=== PATIENT | male | born 1950 | race Caucasian/White ===

== ENCOUNTER → 2017-06-05 10:05 | Outpatient (CLI) | payer MEDICARE, OTHER, SELFPAY ==
--- NOTE | 2017-06-05 10:12 | RAD_ITS ---
STUDY: X-RAY CHEST REASON FOR EXAM: Male, 67 years old. One-month history of right-sided chest pain. TECHNIQUE: PA and lateral views of the chest. COMPARISON: Comparison is made with prior study dated June 18, 2016. FINDINGS: A recording device is seen overlying the lower left hemithorax. Hyperinflation. Scattered calcified granulomas. The lungs are clear. There is no demonstrated pleural abnormality. Normal size heart. Normal mediastinum and alessandra. Normal visualized pulmonary arteries. There is atherosclerotic calcification of the aortic arch with tortuosity. Normal visualized thoracic spine. Normal visualized ribs, clavicles, and shoulders. There is no demonstrated abnormality of the visualized soft tissue structures of the upper abdomen. RAD/Chest PA and Lateral IMPRESSION: Hyperinflation. No acute abnormality is seen. Electronically Signed: Lukas Howard MD at 10:56 EST Tel [phone], Service support ,
== END ==
PROVIDERS: Family Provider Family Medicine; PCP Family Medicine; Visit Provider Family Medicine
DX: R07.89 Other chest pain (principal)
CPT/HCPCS: 71046

== ENCOUNTER 2017-09-01 09:31 | Emergency (ER) | payer MEDICARE, OTHER, SELFPAY ==
[2017-09-01 09:32] VITALS: BP 125/75; PULSE 72; RESP 16; TEMP 36.9; O2SAT 97; BMI 24.3
--- NOTE | 2017-09-01 10:05 | CT_ITS ---
STUDY: CT ABDOMEN AND PELVIS WITH CONTRAST REASON FOR EXAM: Male, 67 years old. Lower abdominal pain. History of prostate cancer and prior diverticulitis. RADIATION DOSAGE (If Supplied By Facility): CTDIvol = ( 15.22 ) mGy, DLP = ( 852.26 ) mGycm TECHNIQUE: Transaxial images were obtained from the dome of the diaphragm to the symphysis pubis with oral contrast. 100 ml of Isovue 300 contrast was administered. Sagittal and coronal images were reconstructed. Individualized dose optimization techniques were used for this CT. COMPARISON: Comparison is made with prior study dated January 21, 2016. FINDINGS: Stable mild increased linear markings at the lung bases suggestive of scarring. Calcified granuloma in the posterior medial segment of the right lower lobe. Coronary artery calcification. Normal liver. Normal gallbladder and extrahepatic biliary system. There are multiple benign calcified granulomata of the spleen. Normal pancreas. Normal bilateral adrenal glands. Normal right kidney. Subcentimeters cyst in the lateral portion of the left kidney. There is a small hiatal hernia. Normal small intestine. There are multiple colonic diverticula consistent with diverticulosis. The appendix is visualized and appears normal. There is diffuse atherosclerotic calcification of the abdominal aorta and its major visceral branches, without a demonstrated aneurysm. Normal inferior vena cava. Normal retroperitoneum. Normal urinary bladder. Status post prostatectomy. Normal abdominal wall. There are degenerative changes of the visualized lumbar spine. CT/Abdomen/Pelvis WITH Contrast IMPRESSION: Sigmoid diverticulosis. Electronically Signed: Lukas Howard MD at 12:10 EDT Tel [phone], Service support ,
[2017-09-01 10:15] LABS: Absolute Lymphocyte Count 1.09 X10^3/ul (0.83-4.51); Absolute Neutrophil Count 5.5 X10^3/uL (2.0-7.7); Basophil# 0.02 X10^3/uL; Basophil% 0.3 % (0-1); Eosinophil# 0.03 X10^3/uL; Eosinophils% 0.4 % (0-5); Hematocrit 41.8 % (40-54); Hemoglobin 14.4 g/dl (13.0-16.5); Lymphocyte # 1.09 X10^3/ul (4.0); Lymphocyte % 15.4 % (19-41); Mean Corp Hgb Conc 34.4 g/gl (32-36); Mean Corpuscular Hgb 30.9 pg (27.0-32.0); Mean Corpuscular Volume 89.7 fL (80-94); Mean Platelet Vol. 9.9 fl (6.2-12.0); Monocyte# 0.45 X10^3/uL; Monocyte% 6.3 % (0-10); Neutrophil # 5.48 X10^3/uL (2.7-7.7); Neutrophil % 77.3 % (47-70); Platelet Count 144 K/mm3 (150-450); RBC Distribution Width CV 13.7 % (11.6-14.6); RBC Distribution Width SD 44.3 fl (35.1-43.9); Red Blood Count 4.66 M/mm3 (4.6-6.2); White Blood Count 7.1 K/mm3 (4.4-11.0)
[2017-09-01 10:22] LABS: POSITIVE COUNT NO; POSITIVE DIFFERENTIAL NO; POSITIVE MORPHOLOGY NO
[2017-09-01 10:34] LABS: Anion Gap 7 (5-15); BUN 14 mg/dL (7-18); BUN/Creat Ratio 12.2 RATIO (10-20); Calcium,Total 8.9 mg/dL (8.5-10.1); Chloride 106 mmol/L (98-107); Creatinine, Serum 1.15 mg/dL (0.70-1.30); EST Glomerular Filtration Rate 67 mL/min (>60); Est Glom Filt Rate - Afr Amer 81 mL/min (>60); Estimated Creatinine Clearance 58.65 ml/min; Glucose 105 mg/dL (74-106); Potassium 4.1 mmol/L (3.5-5.1); Sodium Level 141 mmol/L (136-145)
[2017-09-01] MEDS: Ondansetron 4 MG/2 ML Vial IV (10:42)
[2017-09-01] MEDS: 0.9% Normal Saline 1,000 ML 150 ML IV (10:43)
[2017-09-01 10:51] LABS: Mucous, Urine 0 SEEN /hpf (<or=2+); Squamous Epithelial Cells - UA 0 SEEN /hpf (0-5)
[2017-09-01 10:52] LABS: Color, Urine Yellow (Yellow); Glucose, Dipstick Normal (Normal); Ketone-Dipstick Negative (Negative); Leukocyte Esterase-Dipstick 25 /ul (Negative); Nitrite-Dipstick Negative (Negative); Occult Blood-Urine Negative /ul (Negative); Protein-Dipstick 15 mg/dl (Negative); Urine Clarity Clear (Clear); Urine Urobilinogen 1 mg/dl (Normal)
[2017-09-01 10:54] LABS: Urine Bilirubin Dipstick 1 mg/dL (Negative)
[2017-09-01 11:07] LABS: Bacteria RARE /hpf (None Seen); Red Blood Cells-Urine 0-5 SEEN /hpf (0-5); White Blood Cells 0-5 SEEN /hpf (0-5)
[2017-09-01] MEDS: Morphine 4 MG/ML Syringe IV (11:24)
[2017-09-01 12:00] VITALS: BP 135/78; PULSE 61; RESP 16; O2SAT 93
--- NOTE | 2017-09-01 12:01 | ED.RN ---
family called out and asking for someone to come look at arm. large hematoma noted. no circ compromise noted. able to bend at elbow and wrist with no pain. dr. leon aware and xray ordered. ice pack applied and rt arm elevated
--- NOTE | 2017-09-01 12:42 | ED.DCSUM_ITS ---
- ER Visit Summary Date of Service: 09/01/17 Chief Complaint: Abdominal pain History of Present Illness: The patient is a 67 M 3 day history of left lower quadrant abdominal pain. Patient states he has had diverticulitis in the past and this feels similar. He denies fever or chills. He does feel somewhat constipated. He took a laxative last night with no change. Physical Examination: Vital signs are unremarkable. Head neck examination is normal. Heart is regular rate and rhythm. Lung sounds are clear. Abdomen is soft with mild tenderness in the left lower quadrant. There is no guarding or rebound. Hypoactive bowel sounds are present throughout. Test Results: CBC is significant only for platelet count of 144,000. Chemistry studies are unremarkable. Urinalysis is normal. CT abdomen and pelvis with contrast shows evidence of sigmoid diverticulosis, but no evidence of acute inflammation. Emergency Department Course and Treatment: Patient was given morphine, Zofran, and IV fluids. On repeat evaluation test results are discussed. When I review the CT images he does have quite a bit of stool on the left side. He will be given magnesium citrate to help clean him out. He is to monitor for any fever or worsening symptoms and return for repeat evaluation. Treatment Plan: [] Disposition: Discharge Impression: Abdominal pain This note was generated with [employer] dictation software. It may contain incorrect words, spelling, and punctuation that were not noted in review of the chart prior to signing ED Disposition - Plan for ED Patient: Chief Complaint: Abd Pain Referrals: Vik Terrell MD [Primary Care Provider] -
--- NOTE | 2017-09-01 12:42 | ED.DEP ---
ED Disposition - Plan for ED Patient: Disposition: Home or Assisted Living Chief Complaint: Abd Pain Instructions: ED Abdominal Pain Unkn Cause Male Prescriptions: Magnesium Citrate [Citrate Of Magnesia] 150 ml PO Q6H PRN PRN #300 ml PRN Reason: Constipation Referrals: Vik Terrell MD [Primary Care Provider] - 1 Week
[2017-09-01 13:06] VITALS: BP 120/69; PULSE 62; RESP 18; O2SAT 97
--- NOTE | 2017-09-01 13:07 | ED.RN ---
REVIEWED D/C INSTRUCTIONS, FOLLOW UP CARE, PRESCRIPTION, AND S/S THAT WOULD WARRANT A RETURN TO THE ED WITH PT. PT VERBALIZED AN UNDERSTANDING AND DENIES FURTHER QUESTIONS FOR THIS RN. PT SKIN P/W/D, RESP EVEN AND UNLABORED, PT A&O X 3, NO DISTRESS NOTED. PT AMBULATED OUT OF ED, GAIT STEADY.
== END 2017-09-01 13:10 | disposition home or self-care (01) ==
PROVIDERS: Emergency Provider Emergency Medicine; Family Provider Family Medicine; PCP Family Medicine
DX: R10.32 Left lower quadrant pain (principal); K57.30 Diverticulosis of large intestine without perforation or abscess without bleeding; I25.10 Atherosclerotic heart disease of native coronary artery without angina pectoris; I10 Essential (primary) hypertension; E78.00 Pure hypercholesterolemia, unspecified; Z87.19 Personal history of other diseases of the digestive system; Z85.46 Personal history of malignant neoplasm of prostate; Z79.899 Other long term (current) drug therapy; Z72.0 Tobacco use
CPT/HCPCS: 74177; 80048; 81001; 85025; 96361; 96374; 96375; 99283; Q9967; J2405

== ENCOUNTER → 2017-10-06 14:49 | Outpatient (CLI) | payer MEDICARE, OTHER, SELFPAY ==
--- NOTE | 2017-10-06 14:55 | RAD_ITS ---
STUDY: X-RAY CHEST REASON FOR EXAM: Male, 67 years old. Acute bronchitis. TECHNIQUE: PA and lateral views of the chest. COMPARISON: Comparison is made with prior study of June 05, 2017. FINDINGS: A loop recording device is seen overlying the left cardiac border. Hyperinflation. No focal infiltrate is seen. Scattered calcified granulomas. There is no demonstrated pleural abnormality. Normal size heart. Normal mediastinum and alessandra. Normal visualized pulmonary arteries. There is atherosclerotic calcification of the aortic arch with tortuosity. Normal visualized thoracic spine. Normal visualized ribs, clavicles, and shoulders. There is no demonstrated abnormality of the visualized soft tissue structures of the upper abdomen. RAD/Chest PA and Lateral IMPRESSION: Hyperinflation. No acute abnormality is seen. Electronically Signed: Lukas Howard MD at 15:19 EDT Tel [phone], Service support ,
== END ==
PROVIDERS: Family Provider Family Medicine; PCP Family Medicine; Visit Provider Family Medicine
DX: J20.9 Acute bronchitis, unspecified (principal)
CPT/HCPCS: 71046

== ENCOUNTER → 2018-01-21 10:09 | Outpatient (CLI) | payer MEDICARE, OTHER, SELFPAY ==
--- NOTE | 2018-01-21 10:12 | RAD_ITS ---
STUDY: X-RAY CHEST REASON FOR EXAM: Male, 67 years old. Smoker. TECHNIQUE: Frontal and lateral views of the chest. COMPARISON: 10/06/2017. FINDINGS: The lungs are hyperexpanded. There are coarsened interstitial markings suggestive of mild chronic fibrosis. No gross focal infiltrates. No definite masses. No gross effusions. Normal size heart. 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 Normal mediastinum and alessandra. Normal visualized pulmonary arteries. Normal visualized aortic arch and descending thoracic aorta. Normal visualized thoracic spine. Normal visualized ribs, clavicles, and shoulders. There is no demonstrated abnormality of the visualized soft tissue structures of the upper abdomen. RAD/Chest PA and Lateral IMPRESSION: COPD. No definite acute chest disease. Electronically Signed: Philip Ayala MD at 17:05 EDT , Service support ,
[2018-01-21 11:20] LABS: AST(SGOT) 20 U/L (15-37); Alanine Aminotransfer ALT/SGPT 24 U/L (16-61); Albumin, Serum 3.7 g/dL (3.2-5.0); Alkaline Phosphatase 82 U/L (45-117); Bilirubin, Direct 0.12 mg/dL (0.00-0.30); Cholesterol 133 mg/dL (200); Globulin 3.5 g/dL (2.2-4.2); High Density Lipoprotein 49 mg/dL; Protein, Total 7.2 g/dL (6.4-8.2); Triglycerides 203 mg/dL; Very Low Density Lipoprotein 41 mg/dL (5-40)
[2018-01-21 11:24] LABS: Anion Gap 6 (5-15); BUN 19 mg/dL (7-18); BUN/Creat Ratio 16.2 RATIO (10-20); Calcium,Total 8.8 mg/dL (8.5-10.1); Chloride 105 mmol/L (98-107); Creatinine, Serum 1.17 mg/dL (0.70-1.30); EST Glomerular Filtration Rate 66 mL/min (>60); Est Glom Filt Rate - Afr Amer 79 mL/min (>60); Glucose 89 mg/dL (74-106); PSA,Total- Diagnostic < 0.01 ng/mL (0.0-4.0); Sodium Level 140 mmol/L (136-145)
== END ==
PROVIDERS: Family Provider Family Medicine; PCP Family Medicine; Referring Provider Internal Medicine Cardiovascular Disease; Visit Provider Internal Medicine Cardiovascular Disease
DX: I25.10 Atherosclerotic heart disease of native coronary artery without angina pectoris (principal); I25.84 Coronary atherosclerosis due to calcified coronary lesion; E78.00 Pure hypercholesterolemia, unspecified; I10 Essential (primary) hypertension; Z85.46 Personal history of malignant neoplasm of prostate
CPT/HCPCS: 36415; 71046; 80048; 80061; 80076; 84153

== ENCOUNTER → 2018-02-08 07:38 | Outpatient (CLI) | payer MEDICARE, OTHER, SELFPAY ==
--- NOTE | 2018-02-08 07:40 | ECHOD_ITS ---
Reason For Study: CAd/ASHD Procedure This was a 2D Doppler, Color Flow transthoracic echocardiogram. The study was technically difficult. Exam performed in department. Left Ventricle Normal LV size. Left ventricular systolic function is normal. The estimated ejection fraction is 60 %. Stage 1 diastolic dysfunction. No regional wall motion abnormalities noted. Right Ventricle Normal RV size. Normal systolic function. Atria Normal left atrium. Normal right atrium. Mitral Valve Normal mitral valve. Tricuspid Valve Normal tricuspid valve. Mild tricuspid valve insufficiency. Aortic Valve Normal aortic valve. Trisinus/trileaflet aortic valve. Pulmonic Valve Normal pulmonic valve. Great Vessels Normal aortic root. The pulmonary artery is normal size. Pericardium/Pleural No pericardial effusion. MMode/2D Measurements & Calculations LVIDd: 4.8 cm IVSd: 0.92 cm Ao root diam: 3.1 cm LVIDs: 3.2 cm LVPWd: 0.93 cm RVDd: 4.0 cm FS: 34.4 % LAV(MOD-bp): 57.3 ml LA A4 area: 17.4 cm2 LA dimension(2D): 3.4 cm LAV(MOD-bp) Indexed: 29.7 ml/m2 LAV(MOD-sp2): 58.7 ml LAV(MOD-sp4): 48.1 ml RA A4 area: 17.4 cm2 Time Measurements MV dec time: 0.27 sec Doppler Measurements & Calculations MV E max gwyn: 69.6 cm/sec Lat Peak E' Gwyn: 9.3 cm/sec Med Peak E' Gwyn: 4.6 cm/sec MV A max gwyn: 98.3 cm/sec E/E' lat: 7.5 E/E' med: 15.0 MV E/A: 0.71 Ao V2 max: 132.7 cm/sec LV V1 max: 99.4 cm/sec PA V2 max: 72.4 cm/sec Ao max P.1 mmHg LV V1 max P.0 mmHg TR max gwyn: 219.7 cm/sec TR max P.3 mmHg Interpretation Summary Normal LV size. Left ventricular systolic function is normal. The estimated ejection fraction is 60 %. Stage 1 diastolic dysfunction. The global longitudinal strain = -20.7 % (normal). Ordering Physician: Jaxson Arevalo Referring Physician: Vik Terrell Performed By: Blanca Thomas, MAGI, RVT
== END ==
PROVIDERS: Family Provider Family Medicine; PCP Family Medicine; Referring Provider Nurse Practitioner Family; Visit Provider Nurse Practitioner Family
DX: I25.10 Atherosclerotic heart disease of native coronary artery without angina pectoris (principal); I25.84 Coronary atherosclerosis due to calcified coronary lesion
CPT/HCPCS: 93306

== ENCOUNTER → 2018-02-23 20:00 | Outpatient (CLI) | payer MEDICARE, OTHER, SELFPAY | PROVIDERS: Family Provider Family Medicine; PCP Family Medicine; Visit Provider Nurse Practitioner Acute Care | DX: G47.33 Obstructive sleep apnea (adult) (pediatric) (principal) | CPT/HCPCS: 95811 ==

== ENCOUNTER → 2018-03-10 06:43 | Outpatient (CLI) | payer MEDICARE, OTHER, SELFPAY ==
[2018-03-03 09:16] VITALS: BMI 25.4
--- NOTE | 2018-03-10 12:55 | PFT ---
INTRODUCTION: The patient is a 67-year-old male that presents for pulmonary function testing secondary to a diagnosis of COPD. Respiratory therapy reports good patient effort. Bronchodilators were used during testing. INTERPRETATION: Forced expiration spirometry demonstrates the presence of a mild large airways obstructive ventilatory defect. There was a significant response to aerosolized bronchodilators, based upon change noted in FEV1. Spirograms are of good quality and do not plateau indicating slow emptying of the lungs. Body plethysmography was performed and reveals an elevated RV to 132% of predicted, indicative of underlying air trapping. Diffusing capacity by single breath CO is within normal limits at 96% of predicted. IMPRESSION: These pulmonary function studies demonstrate the presence of a partially reversible mild large airways obstructive ventilatory defect with associated air trapping and preserved diffusing capacity.
== END ==
PROVIDERS: Family Provider Family Medicine; PCP Family Medicine; Referring Provider Nurse Practitioner Family; Visit Provider Nurse Practitioner Family
DX: J44.9 Chronic obstructive pulmonary disease, unspecified (principal); R06.09 Other forms of dyspnea
CPT/HCPCS: 94060; 94726; 94729

== ENCOUNTER → 2018-04-02 08:56 | Outpatient (CLI) | payer MEDICARE, OTHER, SELFPAY ==
[2018-03-03 09:16] VITALS: BMI 25.4
[2018-04-02 10:13] LABS: Absolute Lymphocyte Count 1.61 X10^3/ul (0.83-4.51); Absolute Neutrophil Count 2.7 X10^3/uL (2.0-7.7); Basophil# 0.04 X10^3/uL; Basophil% 0.8 % (0-1); Eosinophil# 0.26 X10^3/uL; Eosinophils% 5.3 % (0-5); Hematocrit 40.8 % (40-54); Hemoglobin 13.7 g/dl (13.0-16.5); Lymphocyte # 1.61 X10^3/ul (4.0); Lymphocyte % 32.7 % (19-41); Mean Corp Hgb Conc 33.6 g/gl (32-36); Mean Corpuscular Hgb 29.9 pg (27.0-32.0); Mean Corpuscular Volume 89.1 fL (80-94); Mean Platelet Vol. 11.2 fl (6.2-12.0); Monocyte# 0.33 X10^3/uL; Monocyte% 6.7 % (0-10); Neutrophil # 2.67 X10^3/uL (2.7-7.7); Neutrophil % 54.3 % (47-70); Platelet Count 138 K/mm3 (150-450); RBC Distribution Width CV 13.3 % (11.6-14.6); RBC Distribution Width SD 43.1 fl (35.1-43.9); Red Blood Count 4.58 M/mm3 (4.6-6.2); White Blood Count 4.9 K/mm3 (4.4-11.0)
[2018-04-02 10:16] LABS: POSITIVE COUNT NO; POSITIVE DIFFERENTIAL NO; POSITIVE MORPHOLOGY NO
[2018-04-02 10:38] LABS: Anion Gap 8 (5-15); BUN 22 mg/dL (7-18); BUN/Creat Ratio 13.8 RATIO (10-20); Calcium,Total 8.8 mg/dL (8.5-10.1); Chloride 108 mmol/L (98-107); Cholesterol 127 mg/dL (200); Creatinine, Serum 1.59 mg/dL (0.70-1.30); EST Glomerular Filtration Rate 46 mL/min (>60); Est Glom Filt Rate - Afr Amer 56 mL/min (>60); Glucose 102 mg/dL (74-106); High Density Lipoprotein 37 mg/dL; Potassium 3.9 mmol/L (3.5-5.1); Sodium Level 141 mmol/L (136-145); Thyroid Stim Hormone (TSH) 3.05 uIU/mL (0.358-3.74); Triglycerides 180 mg/dL; Very Low Density Lipoprotein 36 mg/dL (5-40)
== END ==
PROVIDERS: Family Provider Family Medicine; PCP Family Medicine; Referring Provider Family Medicine; Visit Provider Family Medicine
DX: N18.2 Chronic kidney disease, stage 2 (mild) (principal)
CPT/HCPCS: 80048; 80061; 83036; 84443; 85025

== ENCOUNTER → 2018-08-27 07:13 | Outpatient (CLI) | payer MEDICARE, SELFPAY ==
[2018-08-12 07:46] VITALS: BMI 24.9
--- NOTE | 2018-08-27 07:15 | CT_ITS ---
STUDY: LOW DOSE CT LUNG CANCER SCREENING REASON FOR EXAM: Male, 68 years old. 75 pack-year smoking history. History of prostate cancer. RADIATION DOSAGE (If Supplied By Facility): CTDIvol = ( 3.02 ) mGy, DLP = ( 105.71 ) mGycm TECHNIQUE: No contrast was administered. Low dose technique was utilized (average mAS-38 and kVp 120). 1.25 mm axial source images with a slice interval of 1.25-mm were reconstructed in lung windows. 2.5 mm axial source images with a slice interval of 2.5-mm were reconstructed in lung windows. 5.0 mm axial source images with a slice interval of 5.0-mm were reconstructed in soft tissue windows. Nodule measured using lung windows on PACS and/or independent workstation with automated measurement of minimum and maximum diameter. Nodule measurement reported as average diameter rounded to the nearest whole number. Growth is defined as an increase ins size of greater than 1.5 mm. COMPARISON: Comparison is made with prior examination dated March 27, 2010. NODULES: Stable 2 mm calcified granuloma along the left cardiac border as seen on axial image #153. There is a 7.3 mm slightly ill-defined nodule in the posterior lingular segment of the left upper lobe as seen on axial image #198. This was seen on prior study and most likely represents an area of scarring. Emphysema: Hyperinflation. Increased markings at the lung bases more prominent at the right lung base suggestive of scarring. Aorta: Atherosclerotic calcification of the aortic arch. Coronary arteries: Coronary artery calcification. Mediastinal nodes: Stable 1.1 cm lymph node in the prevascular space. Other chest and abdominal findings: CT/Low Dose CT Lung Screening IMPRESSION: Lung-RADS category 2 - Continue annual screening with LDCT in 12 months. IMPORTANT NOTES FOR USE: ACR Lung-RADS Version 1.0 Assessment Categories Release Date: August 01, 2013 Category: Coded 0-4 bases on nodule(s) with highest degree of suspicion. Negative screen is defined as categories 1 and 2; a positive screen is defined as categories 3 and 4. Category 3 and 4A nodules that are unchanged on interval CT should be coded as category 2, and individuals returned to screening in 12 months. Category 4X: Category 3 or 4 nodules with additional imaging findings that increase the suspicion of lung cancer, such as spiculation, GGN that doubles in size in 1 year, enlarged lymph notes, etc. Category Modifiers: S (significant finding unrelated to lung cancer) and C (prior history of treated lung cancer) may be added to the 0-4 Lung-RADS Electronically Signed: Lukas Howard, at 8:39 EDT , Service support ,
== END ==
PROVIDERS: Family Provider Family Medicine; PCP Family Medicine; Referring Provider Internal Medicine Critical Care Medicine; Visit Provider Internal Medicine Critical Care Medicine
DX: J44.9 Chronic obstructive pulmonary disease, unspecified (principal); Z87.891 Personal history of nicotine dependence; Z85.46 Personal history of malignant neoplasm of prostate
CPT/HCPCS: G0297

== ENCOUNTER → 2019-04-04 05:56 | Outpatient (CLI) | payer MEDICARE, SELFPAY ==
[2019-03-17 07:34] VITALS: BMI 24.9
--- NOTE | 2019-04-04 10:00 | STRESSREP ---
Stress Test Report Exercise myocardial perfusion stress test. 69-year-old man with a history of mild coronary artery disease and hypertension. Stress protocol: Resting EKG demonstrates sinus bradycardia with a rate of 54 bpm normal intervals are noted resting blood pressures 124/72 mmHg. The patient exercised according to regular Johnson protocol for a total duration of 7 minutes the maximum heart rate attained was 146 bpm which was 97% of maximum predicted heart rate the maximum workload was 8.5 metabolic equivalents. At rest there were no ST or T wave changes noted suggest ischemia at peak exercise upsloping ST changes were noted with no meet the criteria for ischemia. No clinical angina was noted the test was terminated due to attainment of target heart rate. The resting blood pressure was 124/72 with a peak blood pressure of 124/60 mmHg. Myocardial perfusion protocol. 11.8 mCi of technetium 99m sestamibi was injected at rest. The patient exercised according to regular Johnson protocol for a total duration of 7 minutes and at peak exercise 31.2 mCi of technetium 99m sestamibi was injected stress images were obtained stress and rest images were reconstructed and compared in the short axis vertical and horizontal long axis. Gated images were also obtained Perfusion SPECT analysis: Review of the stress images demonstrate normal uptake of tracer noted in all areas of the myocardium. The resting images similar demonstrate normal uptake of tracer noted in all areas of the myocardium no areas of reversibility or no suggest ischemia no previous infarct is noted. Gated SPECT analysis: The gated ejection fraction is noted to be 62%. Conclusion: Normal exercise stress test with no evidence of ischemia noted at a moderate workload. No clinical angina noted. No ischemia noted. In comparison to the previous stress test the exercise capacity has diminished slightly.
== END ==
PROVIDERS: Family Provider Family Medicine; PCP Family Medicine; Referring Provider Nurse Practitioner Family; Visit Provider Nurse Practitioner Family
DX: I25.118 Atherosclerotic heart disease of native coronary artery with other forms of angina pectoris (principal); I10 Essential (primary) hypertension; R07.9 Chest pain, unspecified; E78.5 Hyperlipidemia, unspecified
CPT/HCPCS: 78452; 93017; A9500; A4216

== ENCOUNTER → 2019-04-08 12:14 | Outpatient (CLI) | payer MEDICARE, SELFPAY ==
[2019-03-17 07:34] VITALS: BMI 24.9
[2019-04-08 16:14] LABS: Amphetamine Urine VISTA NEGATIVE (<1000 ng/mL); Barbiturate Urine VISTA NEGATIVE (< 200 ng/mL); Benzodiazepine Urine VISTA POSITIVE (< 200 ng/mL); Cocaine Urine VISTA NEGATIVE (< 300 ng/mL); Ecstacy Urine VISTA POSITIVE (< 500 ng/mL); Methadone Urine VISTA NEGATIVE (< 300 ng/mL); PCP Urine VISTA NEGATIVE (< 25 ng/mL); THC Urine VISTA NEGATIVE (< 50 ng/mL); Vista UDS pH Range 5
== END ==
PROVIDERS: Family Provider Family Medicine; PCP Family Medicine; Referring Provider Family Medicine; Visit Provider Family Medicine
DX: M51.36 Other intervertebral disc degeneration, lumbar region (principal); F41.9 Anxiety disorder, unspecified
CPT/HCPCS: 80307

== ENCOUNTER → 2019-04-29 09:19 | Outpatient (CLI) | payer MEDICARE, SELFPAY ==
[2019-03-17 07:34] VITALS: BMI 24.9
[2019-04-29 10:19] LABS: Absolute Lymphocyte Count 1.92 X10^3/uL (0.83-4.51); Basophil# 0.03 X10^3/uL; Basophil% 0.5 % (0-1); Eosinophil# 0.17 X10^3/uL; Hematocrit 43.2 % (40-54); Hemoglobin 13.9 g/dL (13.0-16.5); Lymphocyte # 1.92 X10^3/ul (4.0); Lymphocyte % 33.4 % (19-41); Mean Corp Hgb Conc 32.2 g/dL (32-36); Mean Corpuscular Hgb 28.9 pg (27.0-32.0); Mean Corpuscular Volume 89.8 fL (80-94); Mean Platelet Vol. 9.8 fl (6.2-12.0); Monocyte% 8.7 % (0-10); NRBC Flagged by Analyzer 0 % (0-5); Neutrophil # 3.03 X10^3/uL (2.7-7.7); Neutrophil % 52.8 % (47-70); Platelet Count 191 K/mm3 (150-450); RBC Distribution Width CV 13.2 % (11.6-14.6); RBC Distribution Width SD 43.4 fl (35.1-43.9); Red Blood Count 4.81 M/mm3 (4.6-6.2); White Blood Count 5.7 K/mm3 (4.4-11.0)
[2019-04-29 10:31] LABS: Protein, Urine (Random) 26.6 mg/dL (<11.9); Protein:Creat Ratio 155 mg/g CRE (0-200)
[2019-04-29 11:00] LABS: Vitamin D,25 Hydroxy 40.5 ng/mL (29.95-100.01)
[2019-04-29 11:01] LABS: PTHIN 83.6 pg/mL (18.4-80.1)
[2019-04-29 11:05] LABS: AST(SGOT) 17 U/L (15-37); Alanine Aminotransfer ALT/SGPT 29 U/L (16-61); Albumin, Serum 3.2 g/dL (3.2-5.0); Alkaline Phosphatase 60 U/L (45-117); Anion Gap 3 (5-15); BUN 28 mg/dL (7-18); CPK Total, Creatine Kinase 56 U/L (39-308); Chloride 106 mmol/L (98-107); Cholesterol 128 mg/dL (200); Creatinine, Serum 1.22 mg/dL (0.70-1.30); EST Glomerular Filtration Rate 62 mL/min (>60); Est Glom Filt Rate - Afr Amer 75 mL/min (>60); Globulin 3.3 g/dL (2.2-4.2); Glucose 97 mg/dL (74-106); High Density Lipoprotein 45 mg/dL; Magnesium 2.2 mg/dL (1.6-2.6); Potassium 4.2 mmol/L (3.5-5.1); Protein, Total 6.5 g/dL (6.4-8.2); Sodium Level 139 mmol/L (136-145); Triglycerides 180 mg/dL; Very Low Density Lipoprotein 36 mg/dL (5-40)
== END ==
PROVIDERS: PCP Family Medicine; Referring Provider Family Medicine; Visit Provider Family Medicine
DX: I12.9 Hypertensive chronic kidney disease with stage 1 through stage 4 chronic kidney disease, or unspecified chronic kidney disease (principal); N18.3 Chronic kidney disease, stage 3 (moderate); E78.00 Pure hypercholesterolemia, unspecified; R25.2 Cramp and spasm
CPT/HCPCS: 80053; 80061; 82306; 82550; 82570; 83735; 83970; 84156; 85025

== ENCOUNTER → 2019-07-15 11:43 | Outpatient (CLI) | payer MEDICARE, SELFPAY ==
[2019-06-29 10:16] VITALS: BMI 24.9
[2019-07-15 15:20] LABS: Anion Gap 7 (5-15); BUN 17 mg/dL (7-18); BUN/Creat Ratio 13.3 RATIO (10-20); Calcium,Total 9.1 mg/dL (8.5-10.1); Chloride 109 mmol/L (98-107); Creatinine, Serum 1.28 mg/dL (0.70-1.30); EST Glomerular Filtration Rate 59 mL/min (>60); Est Glom Filt Rate - Afr Amer 71 mL/min (>60); Glucose 106 mg/dL (74-106); Potassium 3.6 mmol/L (3.5-5.1); Sodium Level 141 mmol/L (136-145)
== END ==
PROVIDERS: PCP Family Medicine; Referring Provider Family Medicine; Visit Provider Family Medicine
DX: I10 Essential (primary) hypertension (principal)
CPT/HCPCS: 36415; 80048

== ENCOUNTER → 2019-08-04 10:44 | Outpatient (CLI) | payer MEDICARE, SELFPAY ==
[2019-06-29 10:16] VITALS: BMI 24.9
--- NOTE | 2019-08-04 10:45 | RAD_ITS ---
STUDY: X-RAY - LEFT HAND REASON FOR EXAM: Male, 69 years old. Fell 5 days ago, pain in the hand now, hasn''t gotten any better TECHNIQUE: 3 view(s) of the hand. COMPARISON: None. FINDINGS: Normal radiocarpal articulation. Normal distal radioulnar joint. Normal visualized carpal bones. There is degenerative changes at the first carpal metacarpal joint. The remainder of the carpal articulations are normal. Normal carpometacarpal articulation of the thumb. Normal second through fifth carpometacarpal joints. Nondisplaced oblique fracture of the midshaft of the fourth metacarpal. There is degenerative arthrosis of the metacarpophalangeal (MCP) joints. Normal interphalangeal joint of the thumb. Normal proximal and distal phalanges of the thumb. Normal metacarpophalangeal joints of the second through fifth fingers. Normal proximal and distal interphalangeal joints of the second through fifth fingers. Normal phalanges of the second through fifth fingers. Soft tissue swelling. RAD/Hand Min 3 Views IMPRESSION: Nondisplaced oblique fracture through the midshaft of the fourth metacarpal with overlying soft tissue swelling. Degenerative changes at the first carpometacarpal joint. Electronically Signed: Lukas Howard, at 11:11 EDT , Service support ,
--- NOTE | 2019-08-04 10:46 | RAD_ITS ---
STUDY: X-RAY - LEFT RADIUS AND ULNA REASON FOR EXAM: Male, 69 years old. Fell 5 days ago, pain TECHNIQUE: 2 view(s) of the forearm. COMPARISON: None. FINDINGS: There is no demonstrated soft tissue swelling. Normal visualized radius. Normal visualized ulna. Degenerative changes at the elbow joint. RAD/Forearm 2 Views IMPRESSION: Degenerative changes of the elbow joint. No fracture is seen. Electronically Signed: Lukas Howard, at 11:09 EDT , Service support ,
--- NOTE | 2019-08-04 10:46 | RAD_ITS ---
STUDY: X-RAY - LEFT WRIST REASON FOR EXAM: Male, 69 years old. Fell 5 days ago, pain TECHNIQUE: 3 view(s) of the wrist were obtained. COMPARISON: None. FINDINGS: Normal visualized distal radius and ulna. Normal radiocarpal articulation. Normal distal radioulnar articulation. Normal carpal bones. There is degenerative arthrosis of the carpal articulations. There is degenerative arthrosis of the carpometacarpal articulation of the thumb. Normal second through fifth carpometacarpal articulations. Normal visualized metacarpal bones. Soft tissue swelling. RAD/Wrist min 3 Views IMPRESSION: Degenerative changes. No acute fracture or dislocation is seen. Soft tissue swelling. Electronically Signed: Lukas Howard, at 11:08 EDT , Service support ,
== END ==
PROVIDERS: PCP Family Medicine; Referring Provider Family Medicine; Visit Provider Family Medicine
DX: M79.642 Pain in left hand (principal)
CPT/HCPCS: 73090; 73110; 73130

== ENCOUNTER → 2019-09-13 07:30 | Outpatient (CLI) | payer MEDICARE, SELFPAY ==
[2019-06-29 10:16] VITALS: BMI 24.9
--- NOTE | 2019-09-13 07:32 | CT_ITS ---
STUDY: LOW DOSE CT LUNG CANCER SCREENING REASON FOR EXAM: Male, 69 years old. CURRENT SMOKER X 51 YRS X 1 PPD, HTN, MB=026, HX-PROSTATE CA-PROSTATECTOMY RADIATION DOSAGE (If Supplied By Facility): CTDIvol = ( 2.55 ) mGy, DLP = ( 90.29 ) mGycm TECHNIQUE: No contrast was administered. Low dose technique was utilized (average mAS-38 and kVp 120). 1.25 mm axial source images with a slice interval of 1.25-mm were reconstructed in lung windows. 2.5 mm axial source images with a slice interval of 2.5-mm were reconstructed in lung windows. 5.0 mm axial source images with a slice interval of 5.0-mm were reconstructed in soft tissue windows. Nodule measured using lung windows on PACS and/or independent workstation with automated measurement of minimum and maximum diameter. Nodule measurement reported as average diameter rounded to the nearest whole number. Growth is defined as an increase ins size of greater than 1.5 mm. COMPARISON: Comparison is made with prior examination dated August 27, 2018. NODULES: Stable 2 mm calcified granuloma in the left lower lobe adjacent to the cardiac border. This is seen on axial image #157. Stable focal slightly ill-defined density in the anterior aspect of the lingular segment of the left upper lobe as seen on axial image #202. This most likely represents a focal area of scarring. Stable mild degree of increased linear markings at the lung bases slightly worse on the right side suggestive of basilar scarring. Hyperinflation. Aorta: Atherosclerotic calcification of the aortic arch. Coronary arteries: Coronary artery calcification. Mediastinal nodes: Stable 1.1 cm lymph node in the prevascular space. Other chest and abdominal findings: Degenerative changes of the thoracic spine. CT/Low Dose CT Lung Screening IMPRESSION: Lung-RADS category 2 - Continue annual screening with LDCT in 12 months. IMPORTANT NOTES FOR USE: ACR Lung-RADS Version 1.0 Assessment Categories Release Date: August 01, 2013 Category: Coded 0-4 bases on nodule(s) with highest degree of suspicion. Negative screen is defined as categories 1 and 2; a positive screen is defined as categories 3 and 4. Category 3 and 4A nodules that are unchanged on interval CT should be coded as category 2, and individuals returned to screening in 12 months. Category 4X: Category 3 or 4 nodules with additional imaging findings that increase the suspicion of lung cancer, such as spiculation, GGN that doubles in size in 1 year, enlarged lymph notes, etc. Category Modifiers: S (significant finding unrelated to lung cancer) and C (prior history of treated lung cancer) may be added to the 0-4 Lung-RADS Electronically Signed: Lukas Howard, at 10:17 EDT , Service support ,
--- NOTE | 2019-09-13 14:00 | PFTCOMP_ITS ---
COMPLETE PULMONARY FUNCTION TEST INTERPRETATION Brief HPI: Patient is a 69 year old male, currently under the care of Sarah Escobar, who presents to [facility] for complete pulmonary function tests secondary to diagnosis of COPD. Respiratory therapist reports good effort and reproducible results. Interpretation: Forced expiration spirometry shows a mild large airways obstructive ventilatory defect with an FEV1 of 92% predicted. There is no significant bronchodilator res ponse by strict ATS criteria. Spirograms are of good quality and plateau slowly, indicating slowly emptying areas of the lungs. The respiratory flow volume loop shows decreased expiratory flow rates at all lung volumes consistent with airway obstruction. Lung volumes by body plethysmography show an elevated total lung capacity at 7.6 L, 126% predicted. All other lung volumes are increased symmetrically. Diffusion capacity by carbon monoxide is normal at 103% predicted. The airway resistance is normal. Compared to previous study completed on 03/10/2018, there has been a significant improvement in FVC and FEV1 by 13% each. Impression: Irreversible mild large airways obstructive ventilatory defect resulting in air trapping and a pattern consistent with chronic bronchitis. There has been some improvement compared to 2018.
== END ==
PROVIDERS: PCP Family Medicine; Referring Provider Nurse Practitioner Acute Care; Visit Provider Nurse Practitioner Acute Care
DX: J44.9 Chronic obstructive pulmonary disease, unspecified (principal); F17.210 Nicotine dependence, cigarettes, uncomplicated
CPT/HCPCS: 94060; 94726; 94729; G0297

== ENCOUNTER → 2019-09-15 08:19 | Outpatient (CLI) | payer MEDICARE, SELFPAY ==
[2019-06-29 10:16] VITALS: BMI 24.9
[2019-09-15 08:43] VITALS: PULSE 54; PULSE 59; PULSE 72; PULSE 75; PULSE 90; PULSE 91; PULSE 93; PULSE 94; O2SAT 92; O2SAT 93; O2SAT 94; O2SAT 95
--- NOTE | 2019-09-15 14:09 | PCM.PSN.6M ---
PSN 6 Minute Walk Test - 6 Minute Walk Test 6 Minute Walk Test: 6 Minute Walk Test PSN:6-Minute Walk Test Start: 09/15/19 08:42 Freq: Status: Active Protocol: RESP.6MINW Document 09/15/19 08:43 ANUSHA (Rec: 09/15/19 08:45 ANUSHA [id number]) 6 Minute Walk Test Date Performed 09/15/19 Time Performed 08:30 Height 5 ft 8 in Weight: 70.307 kg Weight in Pounds 155.[address]: Sarah Escobar Assistive device used: None Pre-test Oxygen Delivery Method Room Air Pulse Ox (%) 94 Pulse Rate (60-100 beats/min) 54 L Dyspnea Alissa Scale (0-10) 0 Exertion Alissa Scale (6-20) 6 1st minute Oxygen Delivery Method Room Air Pulse Ox (%) 94 Pulse Rate (60-100 beats/min) 72 2nd minute Oxygen Delivery Method Room Air Pulse Ox (%) 93 Pulse Rate (60-100 beats/min) 75 3rd minute Oxygen Delivery Method Room Air Pulse Ox (%) 92 Pulse Rate (60-100 beats/min) 91 4th minute Oxygen Delivery Method Room Air Pulse Ox (%) 93 Pulse Rate (60-100 beats/min) 90 5th minute Oxygen Delivery Method Room Air Pulse Ox (%) 93 Pulse Rate (60-100 beats/min) 93 6th minute Oxygen Delivery Method Room Air Pulse Ox (%) 93 Pulse Rate (60-100 beats/min) 94 Dyspnea Alissa Scale (0-10) 1 Exertion Alissa Scale (6-20) 11 Post-test Oxygen Delivery Method Room Air Pulse Ox (%) 95 Pulse Rate (60-100 beats/min) 59 L Full Laps Walked 20 Partial Lap, Number of Tiles Walked 2 Total Distance Walked (ft) 1182 - Interpretation Interpretation: The patient was able to ambulate 1182 feet over the course of 6 minutes on room air with no assistive devices or breaks. Oxygen chicho was noted at 92%. These findings are consistent with a normal walking oximetry. - Recommendations Recommendations: No supplemental oxygen is indicated at this time.
== END ==
PROVIDERS: PCP Family Medicine; Referring Provider Nurse Practitioner Acute Care; Visit Provider Nurse Practitioner Acute Care
DX: J44.9 Chronic obstructive pulmonary disease, unspecified (principal)
CPT/HCPCS: 94618

== ENCOUNTER → 2019-09-28 16:44 | Outpatient (CLI) | payer MEDICARE, SELFPAY ==
[2019-09-28 10:14] VITALS: BMI 24.9
--- NOTE | 2019-09-28 16:46 | RAD_ITS ---
STUDY: X-RAY - ABDOMEN/PELVIS REASON FOR EXAM: Male, 69 years old. Fecal incontinence TECHNIQUE: 3 AP views COMPARISON: None. FINDINGS: Normal visualized lung bases. There is an abundance of fecal material throughout the colon. There is no demonstrated free abdominal air. The visualized liver, spleen and kidneys are grossly normal in size and morphology. Normal soft tissue structures. There are diffuse degenerative changes of the visualized lumbar spine. RAD/Abd Inc Decub and/or Erect IMPRESSION: No acute findings, retained stool noted throughout the colon Electronically Signed: Jim Quiñones MD at 7:50 EDT , Service support ,
== END ==
PROVIDERS: PCP Family Medicine; Referring Provider Family Medicine; Visit Provider Family Medicine
DX: R15.9 Full incontinence of feces (principal)
CPT/HCPCS: 74019

== ENCOUNTER → 2020-01-02 08:22 | Outpatient (CLI) | payer MEDICARE, SELFPAY ==
[2019-11-10 10:35] VITALS: BMI 23.4
[2020-01-02 09:57] LABS: Absolute Lymphocyte Count 1.55 X10^3/uL (0.83-4.51); Absolute Neutrophil Count 3.7 X10^3/uL (2.0-7.7); Basophil# 0.05 X10^3/uL; Basophil% 0.9 % (0-1); Eosinophil# 0.17 X10^3/uL; Hematocrit 41.6 % (40-54); Hemoglobin 13.5 g/dL (13.0-16.5); Lymphocyte # 1.55 X10^3/ul (4.0); Lymphocyte % 26.9 % (19-41); Mean Corp Hgb Conc 32.5 g/dL (32-36); Mean Corpuscular Hgb 30.1 pg (27.0-32.0); Mean Corpuscular Volume 92.7 fL (80-94); Mean Platelet Vol. 10.1 fl (6.2-12.0); Monocyte# 0.31 X10^3/uL; Monocyte% 5.4 % (0-10); NRBC Flagged by Analyzer 0 % (0-5); Neutrophil # 3.65 X10^3/uL (2.7-7.7); Neutrophil % 63.3 % (47-70); Platelet Count 174 K/mm3 (150-450); RBC Distribution Width CV 13.2 % (11.6-14.6); Red Blood Count 4.49 M/mm3 (4.6-6.2); White Blood Count 5.8 K/mm3 (4.4-11.0)
[2020-01-02 10:14] LABS: Vitamin D,25 Hydroxy 59.2 ng/mL
[2020-01-02 10:16] LABS: ALB/GLOB Ratio 1.1 RATIO (0.9-2.4); AST(SGOT) 13 U/L (15-37); Alanine Aminotransfer ALT/SGPT 20 U/L (16-61); Albumin, Serum 3.4 g/dL (3.2-5.0); Alkaline Phosphatase 68 U/L (45-117); Anion Gap 5 (5-15); BUN 18 mg/dL (7-18); BUN/Creat Ratio 14.2 RATIO (10-20); Calcium,Total 8.3 mg/dL (8.5-10.1); Chloride 113 mmol/L (98-107); Cholesterol 185 mg/dL (200); Creatinine, Serum 1.27 mg/dL (0.70-1.30); EST Glomerular Filtration Rate 59 mL/min (>60); Est Glom Filt Rate - Afr Amer 72 mL/min (>60); Globulin 3.2 g/dL (2.2-4.2); Glucose 99 mg/dL (74-106); High Density Lipoprotein 41 mg/dL; PSA,Total - Annual Screen < 0.01 ng/mL (0.00-4.00); Phosphorus 3.6 mg/dL (2.5-4.9); Potassium 3.8 mmol/L (3.5-5.1); Protein, Total 6.6 g/dL (6.4-8.2); Sodium Level 140 mmol/L (136-145); Triglycerides 139 mg/dL; Very Low Density Lipoprotein 28 mg/dL (5-40)
[2020-01-02 10:20] LABS: Protein, Urine (Random) 46.1 mg/dL (<11.9); Protein:Creat Ratio 136 mg/g CRE (0-200)
== END ==
PROVIDERS: PCP Family Medicine; Referring Provider Family Medicine; Visit Provider Family Medicine
DX: N18.3 Chronic kidney disease, stage 3 (moderate) (principal); Z12.5 Encounter for screening for malignant neoplasm of prostate; E78.00 Pure hypercholesterolemia, unspecified; I12.9 Hypertensive chronic kidney disease with stage 1 through stage 4 chronic kidney disease, or unspecified chronic kidney disease
CPT/HCPCS: 36415; 80053; 80061; 82306; 82570; 83970; 84100; 84153; 84156; 85025; G0103

== ENCOUNTER → 2020-01-13 08:17 | Outpatient (CLI) | payer MEDICARE, SELFPAY ==
[2019-11-10 10:35] VITALS: BMI 23.4
--- NOTE | 2020-01-13 08:20 | VDUE_ITS ---
Reason For Study: Arm swelling Right Proximal Right jugular vein is spontaneous, widely patent, phasic, with no intraluminal echogenicity noted. Right subclavian vein is spontaneous, widely patent, phasic, with no intraluminal echogenicity noted. Right Lower Arm Right radial vein is compressible. Right ulnar vein is compressible. Right Arm Right axillary vein is spontaneous, patent, phasic, competent, compressible and demonstrates augmentation. Right brachial vein is compressible. Right cephalic vein is compressible. Right basilic vein is compressible. Patient Safety Prelim to Tristan. Interpretation Summary Deep veins of the right upper extremity are patent and compressible segmentally. There is no evidence of deep vein thrombosis. The superficial veins of the right upper extremity, the basilic and cephalic veins, are patent and compressible. There is no evidence of right upper extremity superficial thrombophlebitis involving the veins imaged. Ordering Physician: Vik Hudson Referring Physician: Vik Hudson Performed By: Daily Eubanks RVT ?
== END ==
PROVIDERS: PCP Family Medicine; Referring Provider Family Medicine; Visit Provider Family Medicine
DX: M79.89 Other specified soft tissue disorders (principal)
CPT/HCPCS: 93971

== ENCOUNTER → 2020-04-03 07:39 | Outpatient (CLI) | payer MEDICARE, SELFPAY ==
[2020-03-26 08:30] VITALS: BMI 24.9
[2020-04-03 07:43] LABS: Mucous, Urine 0 SEEN /hpf (<or=2+); Red Blood Cells-Urine 0 SEEN /hpf (0-5); White Blood Cells 0 SEEN /hpf (0-5)
[2020-04-03 09:58] LABS: Color, Urine Yellow (Yellow); Glucose, Dipstick Normal (Normal); Ketone-Dipstick 5 mg/dl (Negative); Leukocyte Esterase-Dipstick 25 /ul (Negative); Nitrite-Dipstick Negative (Negative); Occult Blood-Urine Negative /ul (Negative); Protein-Dipstick 30 mg/dl (Negative); Urine Bilirubin Dipstick Negative (Negative); Urine Clarity Sl. Cloudy (Clear); Urine Urobilinogen 1 mg/dl (Normal)
[2020-04-03 09:58] LABS: Absolute Lymphocyte Count 1.31 X10^3/uL (0.83-4.51); Absolute Neutrophil Count 3.3 X10^3/uL (2.0-7.7); Basophil# 0.04 X10^3/uL; Basophil% 0.8 % (0-1); Eosinophil# 0.11 X10^3/uL; Eosinophils% 2.2 % (0-5); Hemoglobin 14.1 g/dL (13.0-16.5); Lymphocyte # 1.31 X10^3/ul (4.0); Lymphocyte % 26.1 % (19-41); Mean Corpuscular Hgb 29.5 pg (27.0-32.0); Mean Corpuscular Volume 92.1 fL (80-94); Mean Platelet Vol. 10.5 fl (6.2-12.0); Monocyte# 0.29 X10^3/uL; Monocyte% 5.8 % (0-10); NRBC Flagged by Analyzer 0 % (0-5); Neutrophil # 3.26 X10^3/uL (2.7-7.7); Neutrophil % 64.9 % (47-70); Platelet Count 169 K/mm3 (150-450); RBC Distribution Width CV 14.3 % (11.6-14.6); RBC Distribution Width SD 49.1 fl (35.1-43.9); Red Blood Count 4.78 M/mm3 (4.6-6.2)
[2020-04-03 10:08] LABS: Bacteria RARE /hpf (None Seen); Calcium Oxalate Crystals Ur 2+ /hpf (<or=2+); Squamous Epithelial Cells - UA 0-5 SEEN /hpf (0-5)
[2020-04-03 10:17] LABS: ALB/GLOB Ratio 1.1 RATIO (0.9-2.4); AST(SGOT) 11 U/L (15-37); Alanine Aminotransfer ALT/SGPT 18 U/L (16-61); Albumin, Serum 3.6 g/dL (3.2-5.0); Alkaline Phosphatase 78 U/L (45-117); Anion Gap 6 (5-15); BUN 17 mg/dL (7-18); BUN/Creat Ratio 13.4 RATIO (10-20); Calcium,Total 8.6 mg/dL (8.5-10.1); Chloride 114 mmol/L (98-107); Cholesterol 127 mg/dL (200); Creatinine, Serum 1.27 mg/dL (0.70-1.30); EST Glomerular Filtration Rate 59 mL/min (>60); Est Glom Filt Rate - Afr Amer 72 mL/min (>60); Globulin 3.2 g/dL (2.2-4.2); Glucose 99 mg/dL (74-106); High Density Lipoprotein 50 mg/dL; Potassium 3.6 mmol/L (3.5-5.1); Protein, Total 6.8 g/dL (6.4-8.2); Sodium Level 143 mmol/L (136-145); Triglycerides 85 mg/dL; Very Low Density Lipoprotein 17 mg/dL (5-40)
[2020-04-04 10:56] LABS: T4 Free Direct 0.81 ng/dL (0.76-1.46); Thyroid Stim Hormone (TSH) 1.27 uIU/mL (0.358-3.74)
== END ==
PROVIDERS: PCP Family Medicine; Referring Provider Family Medicine; Visit Provider Family Medicine
DX: R68.89 Other general symptoms and signs (principal); I10 Essential (primary) hypertension; E78.00 Pure hypercholesterolemia, unspecified; F17.200 Nicotine dependence, unspecified, uncomplicated
CPT/HCPCS: 36415; 80053; 80061; 81001; 84439; 84443; 85025

== ENCOUNTER 2020-04-26 11:06 | Emergency (ER) | payer MEDICARE, SELFPAY ==
[2020-03-26 08:30] VITALS: BMI 24.9
[2020-04-26 11:07] VITALS: BP 127/78; PULSE 61; RESP 16; TEMP 36.6; O2SAT 98; BMI 24.5
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
[2020-04-26 15:36] VITALS: BP 124/69; PULSE 68; RESP 14; O2SAT 98
== END 2020-04-26 15:37 | disposition home or self-care (01) ==
PROVIDERS: Emergency Provider Emergency Medicine; PCP Family Medicine
DX: S00.03XA Contusion of scalp, initial encounter (principal); W22.09XA Striking against other stationary object, initial encounter; E78.5 Hyperlipidemia, unspecified; I10 Essential (primary) hypertension; Z79.02 Long term (current) use of antithrombotics/antiplatelets; Z85.46 Personal history of malignant neoplasm of prostate; Z86.73 Personal history of transient ischemic attack (TIA), and cerebral infarction without residual deficits
CPT/HCPCS: 70450; 72125; 99284

== ENCOUNTER 2020-05-10 06:42 | Day surgery (SDC) | payer MEDICARE, SELFPAY ==
[2020-05-01 11:04] VITALS: BMI 24.9
[2020-05-01 12:43] LABS: Hematocrit 40.9 % (40-54); Hemoglobin 13.4 g/dL (13.0-16.5); Mean Corp Hgb Conc 32.8 g/dL (32-36); Mean Corpuscular Hgb 29.8 pg (27.0-32.0); Mean Corpuscular Volume 91.1 fL (80-94); Mean Platelet Vol. 9.9 fl (6.2-12.0); Platelet Count 147 K/mm3 (150-450); RBC Distribution Width SD 46.7 fl (35.1-43.9); Red Blood Count 4.49 M/mm3 (4.6-6.2); White Blood Count 5.8 K/mm3 (4.4-11.0)
[2020-05-01 13:31] LABS: Anion Gap 5 (5-15); BUN 15 mg/dL (7-18); BUN/Creat Ratio 14.9 RATIO (10-20); Calcium,Total 8.8 mg/dL (8.5-10.1); Chloride 108 mmol/L (98-107); Creatinine, Serum 1.01 mg/dL (0.70-1.30); EST Glomerular Filtration Rate 77 mL/min (>60); Est Glom Filt Rate - Afr Amer 93 mL/min (>60); Glucose 88 mg/dL (74-106); Potassium 4.2 mmol/L (3.5-5.1); Sodium Level 139 mmol/L (136-145)
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
[2020-05-09 08:06] VITALS: BMI 24.5
--- NOTE | 2020-05-10 08:19 | CL.IE_ITS ---
Patient: SELENE SAMUEL Study Date: 05/10/2020 Performing: Jaxson Arevalo MD : 1950 Age: 70 Gender: male PROCEDURES PERFORMED [id number] OF LOOP RECORDER INDICATIONS Cryptogenic stroke PROCEDURE DETAILS The patient was brought to the Catheterization Lab in the postabsorptive nonsedated state. Infor med consent was obtained prior to the procedure. Local anesthetic was given subcutaneously to the le ft upper chest area with Lidocaine 2%. Incision was made to the left upper chest. ICM Loop Recorder w as removed. Steri-strips applied to Lt chest area. The patient tolerated the procedure well. Estimated Blood Loss: 10 ml's IMPLANTED / EX-PLANTED DEVICES DEVICE PARAMETERS CONCLUSIONS / RECOMMENDATIONS Device Conclusions: Successful removal of a patient activated loop recorder. Device Recommendations: Follow up with Primary Care Physician PROCEDURE MEDICATIONS Versed 1 mg IV Oxygen: 2 L/min via nasal cannula Antibiotic given in appropriate timeframe. Ancef 2 Gm IV @ 05/10/2020 07:57:17 Signed By Jaxson Arevalo MD On 05/10/2020 08:18:01 Jaxson Arevalo MD
== END 2020-05-10 09:20 | disposition home or self-care (01) ==
LOC: CLSP 06:44
PROVIDERS: PCP Family Medicine; Referring Provider Internal Medicine Cardiovascular Disease; Visit Provider Internal Medicine Cardiovascular Disease
DX: I25.10 Atherosclerotic heart disease of native coronary artery without angina pectoris (principal); I10 Essential (primary) hypertension; J44.9 Chronic obstructive pulmonary disease, unspecified; E78.5 Hyperlipidemia, unspecified; F17.200 Nicotine dependence, unspecified, uncomplicated; G47.33 Obstructive sleep apnea (adult) (pediatric); Z79.02 Long term (current) use of antithrombotics/antiplatelets; Z98.890 Other specified postprocedural states; Z85.46 Personal history of malignant neoplasm of prostate; Z86.73 Personal history of transient ischemic attack (TIA), and cerebral infarction without residual deficits
CPT/HCPCS: 33286; 36415; 80048; 85027; 99152; J7040

== ENCOUNTER → 2020-07-31 07:47 | Outpatient (CLI) | payer MEDICARE, SELFPAY ==
[2020-05-24 09:22] VITALS: BMI 23.8
[2020-07-31 10:13] LABS: Absolute Lymphocyte Count 1.75 X10^3/uL (0.83-4.51); Absolute Neutrophil Count 3.9 X10^3/uL (2.0-7.7); Basophil# 0.06 X10^3/uL; Eosinophils% 1.6 % (0-5); Hematocrit 45.1 % (40-54); Hemoglobin 14.8 g/dL (13.0-16.5); Lymphocyte # 1.75 X10^3/ul (0.83-4.51); Lymphocyte % 28.1 % (19-41); Mean Corp Hgb Conc 32.8 g/dL (32-36); Mean Corpuscular Hgb 30.5 pg (27.0-32.0); Mean Corpuscular Volume 92.8 fL (80-94); Mean Platelet Vol. 10.1 fl (6.2-12.0); Monocyte# 0.38 X10^3/uL; Monocyte% 6.1 % (0-10); NRBC Flagged by Analyzer 0 % (0-5); Neutrophil # 3.92 X10^3/uL (2.7-7.7); Platelet Count 167 K/mm3 (150-450); RBC Distribution Width CV 13.4 % (11.6-14.6); Red Blood Count 4.86 M/mm3 (4.6-6.2); White Blood Count 6.2 K/mm3 (4.4-11.0)
[2020-07-31 10:14] LABS: Color, Urine Yellow (Yellow); Glucose, Dipstick Normal (Normal); Ketone-Dipstick 50 mg/dl (Negative); Leukocyte Esterase-Dipstick 25 /ul (Negative); Nitrite-Dipstick Negative (Negative); Occult Blood-Urine Negative /ul (Negative); Protein-Dipstick 15 mg/dl (Negative); Specific Gravity, Urine 1.025 (1.002-1.030); Urine Bilirubin Dipstick Negative (Negative); Urine Clarity Sl. Cloudy (Clear); Urine Urobilinogen 1 mg/dl (Normal)
[2020-07-31 10:26] LABS: PTHIN 21.4 pg/mL (18.4-80.1)
[2020-07-31 10:29] LABS: Red Blood Cells-Urine 0-5 SEEN /hpf (0-5); Squamous Epithelial Cells - UA 0-5 SEEN /hpf (0-5); White Blood Cells 0-5 SEEN /hpf (0-5)
[2020-07-31 10:30] LABS: Bacteria RARE /hpf (None Seen); Mucous, Urine 1+ /hpf (<or=2+)
[2020-07-31 10:47] LABS: ALB/GLOB Ratio 1.3 RATIO (0.9-2.4); AST(SGOT) 10 U/L (15-37); Alanine Aminotransfer ALT/SGPT 22 U/L (16-61); Albumin, Serum 4.1 g/dL (3.2-5.0); Alkaline Phosphatase 71 U/L (45-117); Anion Gap 7 (5-15); BUN 22 mg/dL (7-18); BUN/Creat Ratio 17.7 RATIO (10-20); Calcium,Total 9.1 mg/dL (8.5-10.1); Chloride 111 mmol/L (98-107); Cholesterol 144 mg/dL (200); Creatinine, Serum 1.24 mg/dL (0.70-1.30); EST Glomerular Filtration Rate 61 mL/min (>60); Est Glom Filt Rate - Afr Amer 74 mL/min (>60); Globulin 3.1 g/dL (2.2-4.2); Glucose 95 mg/dL (74-106); High Density Lipoprotein 53 mg/dL; Phosphorus 3.4 mg/dL (2.5-4.9); Potassium 3.7 mmol/L (3.5-5.1); Protein, Total 7.2 g/dL (6.4-8.2); Sodium Level 140 mmol/L (136-145); Triglycerides 109 mg/dL; Very Low Density Lipoprotein 22 mg/dL (5-40)
[2020-07-31 10:55] LABS: Microalbumin,Random Urine 40.1 mg/L (NO RANGE EST.); Microalbumin:Creatinine Ratio 18.1 mg/g CRE (<30 mg/g CRE)
[2020-07-31 15:00] LABS: Protein, Urine (Random) 20.7 mg/dL (<11.9); Protein:Creat Ratio 93 mg/g CRE (0-200)
== END ==
PROVIDERS: PCP Family Medicine; Referring Provider Family Medicine; Visit Provider Family Medicine
DX: E78.00 Pure hypercholesterolemia, unspecified (principal); N18.30 Chronic kidney disease, stage 3 unspecified; I12.9 Hypertensive chronic kidney disease with stage 1 through stage 4 chronic kidney disease, or unspecified chronic kidney disease
CPT/HCPCS: 36415; 80053; 80061; 81001; 82043; 82570; 83970; 84100; 84156; 85025

== ENCOUNTER → 2020-08-09 16:44 | Outpatient (CLI) | payer MEDICARE, SELFPAY ==
[2020-05-24 09:22] VITALS: BMI 23.8
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
== END ==
PROVIDERS: PCP Family Medicine; Referring Provider Family Medicine; Visit Provider Family Medicine
DX: S13.4XXA Sprain of ligaments of cervical spine, initial encounter (principal); X58.XXXA Exposure to other specified factors, initial encounter; M50.322 Other cervical disc degeneration at C5-C6 level
CPT/HCPCS: 72040

== ENCOUNTER → 2020-08-10 08:54 | Outpatient (CLI) | payer MEDICARE, SELFPAY ==
[2020-05-24 09:22] VITALS: BMI 23.8
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
== END ==
PROVIDERS: PCP Family Medicine; Referring Provider Family Medicine; Visit Provider Family Medicine
DX: S09.90XA Unspecified injury of head, initial encounter (principal)
CPT/HCPCS: 70450

== ENCOUNTER → 2020-08-30 07:42 | Outpatient (CLI) | payer MEDICARE, SELFPAY ==
[2020-05-24 09:22] VITALS: BMI 23.8
[2020-08-30 08:00] VITALS: PULSE 62; PULSE 66; PULSE 76; PULSE 77; PULSE 78; PULSE 81; PULSE 87; O2SAT 95; O2SAT 96; O2SAT 97; O2SAT 99
--- NOTE | 2020-08-30 15:03 | PCM.PSN.6M ---
PSN 6 Minute Walk Test 6 Minute Walk Test 6 Minute Walk Test: 6 Minute Walk Test PSN:6-Minute Walk Test Start: 08/30/20 08:05 Freq: Status: Active Protocol: [id number] Document 08/30/20 08:00 STEFANI (Rec: 08/30/20 08:08 [id number]) 6 Minute Walk Test Date Performed 08/30/20 Time Performed 08:00 Height 5 ft 9 in Weight: 67.132 kg Weight in Pounds 148.[address]: Sarah Escobar CUSTOMER SERVICE AND SALES CONSULTANT FIO2 (% Oxygen) 21 Assistive device used: None Pre-test Oxygen Delivery Method Room Air Pulse Ox (%) 99 Pulse Rate (60-100 beats/min) 62 Dyspnea Alissa Scale (0-10) 0 Exertion Alissa Scale (6-20) 6 1st minute Oxygen Delivery Method Room Air Pulse Ox (%) 96 Pulse Rate (60-100 beats/min) 87 2nd minute Oxygen Delivery Method Room Air Pulse Ox (%) 95 Pulse Rate (60-100 beats/min) 77 3rd minute Oxygen Delivery Method Room Air Pulse Ox (%) 95 Pulse Rate (60-100 beats/min) 78 4th minute Oxygen Delivery Method Room Air Pulse Ox (%) 95 Pulse Rate (60-100 beats/min) 78 5th minute Oxygen Delivery Method Room Air Pulse Ox (%) 96 Pulse Rate (60-100 beats/min) 76 6th minute Oxygen Delivery Method Room Air Pulse Ox (%) 96 Pulse Rate (60-100 beats/min) 81 Post-test Oxygen Delivery Method Room Air Pulse Ox (%) 97 Pulse Rate (60-100 beats/min) 66 Dyspnea Alissa Scale (0-10) 0.5 Exertion Alissa Scale (6-20) 6 Full Laps Walked 18 Partial Lap, Number of Tiles Walked 0 Total Distance Walked (ft) 1062 Interpretation Interpretation: The patient was able to ambulate 1062 feet over the course of 6 minutes on room air with no assistive devices or breaks. There was no significant desaturation or tachycardia during testing. These findings are consistent with a normal walking oximetry. Recommendations Recommendations: No supplemental oxygen is indicated at this time.
== END ==
PROVIDERS: PCP Family Medicine; Referring Provider Nurse Practitioner Acute Care; Visit Provider Nurse Practitioner Acute Care
DX: J44.9 Chronic obstructive pulmonary disease, unspecified (principal)
CPT/HCPCS: 94618

== ENCOUNTER → 2020-09-20 07:51 | Outpatient (CLI) | payer MEDICARE, SELFPAY ==
[2020-05-24 09:22] VITALS: BMI 23.8
--- NOTE | 2020-09-20 07:52 | CT_ITS ---
STUDY: LOW DOSE CT LUNG CANCER SCREENING REASON FOR EXAM: Male, 70 years old. Current smoker and gt;30 pack years RADIATION DOSAGE (If Supplied By Facility): CTDIvol = ( 2.01 ) mGy, DLP = ( 70.72 ) mGycm TECHNIQUE: No contrast was administered. Low dose technique was utilized (average mAS-38 and kVp 120). 1.25 mm axial source images with a slice interval of 1.25-mm were reconstructed in lung windows. 2.5 mm axial source images with a slice interval of 2.5-mm were reconstructed in lung windows. 5.0 mm axial source images with a slice interval of 5.0-mm were reconstructed in soft tissue windows. Nodule measured using lung windows on PACS and/or independent workstation with automated measurement of minimum and maximum diameter. Nodule measurement reported as average diameter rounded to the nearest whole number. Growth is defined as an increase ins size of greater than 1.5 mm. COMPARISON: Comparison is made with prior examination dated 09/13/2019. NODULES: There is a stable 2 mm calcified granuloma in the right upper lobe anteriorly as seen on axial image #144. Emphysema: Mild increased markings at the lung bases suggestive of scarring slightly more prominent on the right side. Hyperinflation. Stable mild linear scarring in the lingular segment of the left upper lobe. Endobronchial lesion: None Aorta: Atherosclerotic calcification of the aortic arch. Coronary arteries: Coronary artery calcification. Heart: Unremarkable Pulmonary artery: Unremarkable Mediastinal nodes: 1.1 cm lymph node in the prevascular space. Other chest and abdominal findings: Degenerative changes of the thoracic spine. CT/Low Dose CT Lung Screening IMPRESSION: Lung-RADS category 2 - Continue annual screening with LDCT in 12 months. IMPORTANT NOTES FOR USE: ACR Lung-RADS Version 1.1 Assessment Categories Release Date: 2018 Category: Coded 0-4 bases on nodule(s) with highest degree of suspicion. Negative screen is defined as categories 1 and 2; a positive screen is defined as categories 3 and 4. Category 3 and 4A nodules that are unchanged on interval CT should be coded as category 2, and individuals returned to screening in 12 months. Category 4X: Category 3 or 4 nodules with additional imaging findings that increase the suspicion of lung cancer, such as spiculation, GGN that doubles in size in 1 year, enlarged lymph notes, etc. Category Modifiers: S (significant finding unrelated to lung cancer) Electronically Signed: Lukas Howard MD at 10:00 EDT , Service support ,
== END ==
PROVIDERS: PCP Family Medicine; Referring Provider Nurse Practitioner Acute Care; Visit Provider Nurse Practitioner Acute Care
DX: Z12.2 Encounter for screening for malignant neoplasm of respiratory organs (principal); F17.210 Nicotine dependence, cigarettes, uncomplicated
CPT/HCPCS: 71271

== ENCOUNTER → 2020-10-02 06:45 | Outpatient (CLI) | payer MEDICARE, SELFPAY ==
[2020-03-26 08:30] VITALS: BMI 24.9
[2020-10-02 05:38] VITALS: BMI 23.8
--- NOTE | 2020-10-03 09:33 | PFT ---
INTRODUCTION: The patient is a 70-year-old male that presents for pulmonary function studies secondary to a diagnosis of COPD. Respiratory therapy reports good patient effort. Bronchodilators were used during testing. INTERPRETATION: Forced expiration spirometry demonstrates the presence of a mild large airways obstructive ventilatory defect. There was no significant response to aerosolized bronchodilators. Spirograms are of good quality but do not plateau indicating slow emptying of the lungs. Body plethysmography was performed and reveals lung volumes to be within normal limits. Diffusing capacity by single breath CO was also within normal limits. When compared to previous pulmonary function studies dated September 2019, there have been decreases in the patient's FVC, FEV1 and diffusing capacity. IMPRESSION: Irreversible mild large airways obstructive ventilatory defect with preserved lung volumes and diffusing capacity. There have been changes in the patient's PFTs since 2019, as noted above.
== END ==
PROVIDERS: PCP Family Medicine; Referring Provider Nurse Practitioner Acute Care; Visit Provider Nurse Practitioner Acute Care
DX: J44.9 Chronic obstructive pulmonary disease, unspecified (principal)
CPT/HCPCS: 94060; 94726; 94729

== ENCOUNTER → 2020-11-07 08:54 | Outpatient (CLI) | payer MEDICARE, SELFPAY ==
[2020-10-11 08:56] VITALS: BMI 21.9
[2020-11-07 09:19] LABS: Mucous, Urine 0 SEEN /hpf (<or=2+); Red Blood Cells-Urine 0 SEEN /hpf (0-5)
[2020-11-07 10:29] LABS: Absolute Lymphocyte Count 1.52 X10^3/uL (0.83-4.51); Absolute Neutrophil Count 3.9 X10^3/uL (2.0-7.7); Basophil# 0.06 X10^3/uL; Eosinophil# 0.22 X10^3/uL; Eosinophils% 3.6 % (0-5); Hematocrit 44.3 % (40-54); Hemoglobin 14.5 g/dL (13.0-16.5); Lymphocyte # 1.52 X10^3/ul (0.83-4.51); Lymphocyte % 24.8 % (19-41); Mean Corp Hgb Conc 32.7 g/dL (32-36); Mean Corpuscular Hgb 30.6 pg (27.0-32.0); Mean Corpuscular Volume 93.5 fL (80-94); Mean Platelet Vol. 9.8 fl (6.2-12.0); Monocyte# 0.39 X10^3/uL; Monocyte% 6.4 % (0-10); NRBC Flagged by Analyzer 0 % (0-5); Neutrophil % 63.7 % (47-70); Platelet Count 194 K/mm3 (150-450); RBC Distribution Width CV 13.2 % (11.6-14.6); RBC Distribution Width SD 45.6 fl (35.1-43.9); Red Blood Count 4.74 M/mm3 (4.6-6.2); White Blood Count 6.1 K/mm3 (4.4-11.0)
[2020-11-07 10:43] LABS: Color, Urine Yellow (Yellow); Glucose, Dipstick Normal (Normal); Ketone-Dipstick Negative (Negative); Leukocyte Esterase-Dipstick 25 /ul (Negative); Nitrite-Dipstick Negative (Negative); Occult Blood-Urine Negative /ul (Negative); Protein-Dipstick 15 mg/dl (Negative); Urine Bilirubin Dipstick Negative (Negative); Urine Clarity Clear (Clear); Urine Urobilinogen Normal (Normal)
[2020-11-07 10:55] LABS: Bacteria RARE /hpf (None Seen); Hyaline Cast 0-5 SEEN /lpf (0-5); Squamous Epithelial Cells - UA 0-5 SEEN /hpf (0-5); White Blood Cells 0-5 SEEN /hpf (0-5)
[2020-11-07 11:03] LABS: Vitamin D,25 Hydroxy 78.1 ng/mL
[2020-11-07 11:04] LABS: ALB/GLOB Ratio 1.1 RATIO (0.9-2.4); AST(SGOT) 20 U/L (15-37); Alanine Aminotransfer ALT/SGPT 32 U/L (16-61); Albumin, Serum 3.7 g/dL (3.2-5.0); Alkaline Phosphatase 72 U/L (45-117); Anion Gap 6 (5-15); BUN 18 mg/dL (7-18); BUN/Creat Ratio 16.2 RATIO (10-20); Calcium,Total 8.6 mg/dL (8.5-10.1); Chloride 110 mmol/L (98-107); Cholesterol 143 mg/dL (200); Creatinine, Serum 1.11 mg/dL (0.70-1.30); EST Glomerular Filtration Rate 69 mL/min (>60); Est Glom Filt Rate - Afr Amer 84 mL/min (>60); Globulin 3.3 g/dL (2.2-4.2); Glucose 97 mg/dL (74-106); High Density Lipoprotein 48 mg/dL; Potassium 4.2 mmol/L (3.5-5.1); Sodium Level 140 mmol/L (136-145); Triglycerides 101 mg/dL; Very Low Density Lipoprotein 20 mg/dL (5-40)
== END ==
PROVIDERS: PCP Family Medicine; Referring Provider Family Medicine; Visit Provider Family Medicine
DX: I12.9 Hypertensive chronic kidney disease with stage 1 through stage 4 chronic kidney disease, or unspecified chronic kidney disease (principal); N18.30 Chronic kidney disease, stage 3 unspecified; F41.9 Anxiety disorder, unspecified; F17.200 Nicotine dependence, unspecified, uncomplicated; E78.00 Pure hypercholesterolemia, unspecified
CPT/HCPCS: 36415; 80053; 80061; 81001; 82306; 85025

== ENCOUNTER → 2021-02-06 09:57 | Outpatient (CLI) | payer MEDICARE, SELFPAY ==
--- NOTE | 2021-02-06 09:59 | CDU_ITS ---
Reason For Study: Hx stroke, nonobstructive CAD, smoker, headache Rt. Velocities/BP Lt. Velocities/BP Prox CCA 82.6/16 cm/sec. Prox CCA 96.1/26.2 cm/sec. Mid CCA 85.2/17.3 cm/sec. Mid CCA 90/23.7 cm/sec. Dist CCA 79.9/22.6 cm/sec. Dist CCA 85.1/23.7 cm/sec. Prox ICA 60.4/16 cm/sec. Prox ICA 91.2/22.5 cm/sec. Mid ICA 78.6/30.4 cm/sec. Mid ICA 85.1/31.1 cm/sec. Dist ICA 77.7/23.7 cm/sec. Dist ICA 86.4/33.4 cm/sec. Rt. ICA/CCA = 0.95. Lt. ICA/CCA = 1.01. Prox ECA 100.8/10.8 cm/sec. Prox ECA 92.4/20 cm/sec. Rt. Vert. 40/11.6 cm/sec. Lt. Vert. 44.3/14.6 cm/sec. Right Extracranial There is heterogeneous, smooth atherosclerotic plaque noted in the right common carotid artery. There is heterogeneous, irregular atherosclerotic plaque noted in the right internal carotid artery. There is heterogeneous, irregular atherosclerotic plaque noted in the right external carotid artery. Antegrade flow is noted in the right vertebral artery. Left Extracranial There is intimal thickening but no significant atherosclerotic plaque noted in the left common carotid artery. There is heterogeneous, irregular atherosclerotic plaque noted in the left internal carotid artery. There is heterogeneous, irregular atherosclerotic plaque noted in the left external carotid artery. Antegrade flow is noted in the left vertebral artery. Procedure Carotid Duplex [id number]. This is a Carotid Duplex examination using B-mode, color flow and specral Doppler. Exam performed in department. VL/Carotid Duplex Ultrasound Interpretation Summary Irregular calcific plaque right common carotid carotid bulb and proximal marketing intern al carotid artery Less than 50% stenosis right internal carotid artery. Tortuous distal right internal carotid artery Less than 50% stenosis right external carotid artery Irregular calcific plaque in the proximal left internal carotid artery with les s than 50% stenosis Less than 50% stenosis left external carotid artery Patent antegrade vertebral arteries bilaterally Ordering Physician: Elis Early Referring Physician: Vik Hudson Performed By: Daily Eubanks RVT
== END ==
PROVIDERS: PCP Family Medicine; Referring Provider Nurse Practitioner Family; Visit Provider Nurse Practitioner Family
DX: I25.10 Atherosclerotic heart disease of native coronary artery without angina pectoris (principal); R51.9 Headache, unspecified; Z91.89 Other specified personal risk factors, not elsewhere classified; Z86.73 Personal history of transient ischemic attack (TIA), and cerebral infarction without residual deficits
CPT/HCPCS: 93880

== ENCOUNTER → 2021-02-19 11:02 | Outpatient (CLI) | payer MEDICARE, SELFPAY ==
--- NOTE | 2021-02-19 11:05 | RAD_ITS ---
STUDY: X-RAY - SKULL REASON FOR EXAM: Male, 70 years old. Facial swelling. TECHNIQUE: 5 view(s) of the skull were obtained. COMPARISON: None. FINDINGS: 3 mm in length radiopaque foreign body projected over the inferior aspect of the left orbital rim. There is no demonstrated soft tissue swelling. Normal osseous calvarium. Normal visualized facial bones. Normal visualized paranasal sinuses. RAD/Skull min 4 Views IMPRESSION: Metallic foreign body as described. No other abnormality. Electronically Signed: Faizan Gonzalez MD at 12:42 EST , Service support ,
== END ==
PROVIDERS: PCP Family Medicine; Referring Provider Family Medicine; Visit Provider Family Medicine
DX: R22.0 Localized swelling, mass and lump, head (principal)
CPT/HCPCS: 70260

== ENCOUNTER → 2021-02-21 14:41 | Outpatient (CLI) | payer MEDICARE, SELFPAY ==
--- NOTE | 2021-02-21 14:42 | RAD_ITS ---
STUDY: X-RAY - CERVICAL SPINE REASON FOR EXAM: Male, 70 years old. neck pain TECHNIQUE: 4 view(s) of the cervical spine were obtained. COMPARISON: August 09, 2020. FINDINGS: Normal anterior atlantoaxial articulation. Normal odontoid process. Normal cervical lordosis. Normal vertebral bodies . Marginal osteophytes C4-C5 along with disc space narrowing and marginal osteophytes C5-C6 stable since the prior study. Normal visualized intervertebral neuroforamina. The soft tissue structures are unremarkable. RAD/Cerv Spine 2 or 3 Views IMPRESSION: Stable degenerative changes of the lower cervical spine. No acute findings. Electronically Signed: Syed Crowe MD at 3:51 EST , Service support ,
[2021-02-21 14:53] LABS: Bacteria 0 SEEN /hpf (None Seen); Mucous, Urine 0 SEEN /hpf (<or=2+); Red Blood Cells-Urine 0 SEEN /hpf (0-5); Squamous Epithelial Cells - UA 0 SEEN /hpf (0-5); White Blood Cells 0 SEEN /hpf (0-5)
[2021-02-21 18:02] LABS: Absolute Neutrophil Count 3.8 X10^3/uL (2.0-7.7); Basophil# 0.04 X10^3/uL; Basophil% 0.6 % (0-1); Eosinophil# 0.21 X10^3/uL; Eosinophils% 3.2 % (0-5); Hematocrit 43.8 % (40-54); Hemoglobin 14.4 g/dL (13.0-16.5); Lymphocyte % 30.5 % (19-41); Mean Corp Hgb Conc 32.9 g/dL (32-36); Mean Corpuscular Hgb 30.3 pg (27.0-32.0); Mean Corpuscular Volume 92.2 fL (80-94); Mean Platelet Vol. 9.7 fl (6.2-12.0); Monocyte# 0.45 X10^3/uL; Monocyte% 6.9 % (0-10); NRBC Flagged by Analyzer 0 % (0-5); Neutrophil # 3.83 X10^3/uL (2.7-7.7); Neutrophil % 58.5 % (47-70); Platelet Count 177 K/mm3 (150-450); RBC Distribution Width CV 13.2 % (11.6-14.6); Red Blood Count 4.75 M/mm3 (4.6-6.2); White Blood Count 6.6 K/mm3 (4.4-11.0)
[2021-02-21 18:16] LABS: Vitamin D,25 Hydroxy 74.6 ng/mL
[2021-02-21 18:25] LABS: ALB/GLOB Ratio 1.1 RATIO (0.9-2.4); AST(SGOT) 16 U/L (15-37); Alanine Aminotransfer ALT/SGPT 24 U/L (16-61); Albumin, Serum 3.8 g/dL (3.2-5.0); Alkaline Phosphatase 59 U/L (45-117); Anion Gap 5 (5-15); BUN 17 mg/dL (7-18); BUN/Creat Ratio 14.8 RATIO (10-20); Calcium,Total 8.7 mg/dL (8.5-10.1); Chloride 110 mmol/L (98-107); Cholesterol 131 mg/dL (200); Creatinine, Serum 1.15 mg/dL (0.70-1.30); EST Glomerular Filtration Rate 66 mL/min (>60); Est Glom Filt Rate - Afr Amer 80 mL/min (>60); Globulin 3.4 g/dL (2.2-4.2); Glucose 90 mg/dL (74-106); High Density Lipoprotein 51 mg/dL; PSA,Total - Annual Screen < 0.01 ng/mL (0.00-4.00); Phosphorus 3.4 mg/dL (2.5-4.9); Protein, Total 7.2 g/dL (6.4-8.2); Sodium Level 139 mmol/L (136-145); Triglycerides 102 mg/dL; Very Low Density Lipoprotein 20 mg/dL (5-40)
[2021-02-21 18:51] LABS: Hemoglobin A1c 4.9 % (3.8-5.6)
[2021-02-21 18:55] LABS: Protein:Creat Ratio 141 mg/g CRE (0-200)
[2021-02-21 19:21] LABS: Color, Urine Yellow (Yellow); Glucose, Dipstick Normal (Normal); Ketone-Dipstick Negative (Negative); Leukocyte Esterase-Dipstick Negative /ul (Negative); Nitrite-Dipstick Negative (Negative); Occult Blood-Urine Negative /ul (Negative); Protein-Dipstick Negative (Negative); Urine Bilirubin Dipstick Negative (Negative); Urine Clarity Clear (Clear); Urine Urobilinogen Normal (Normal); Urine pH 6.5 (5.0 - 8.0)
[2021-02-22 08:04] LABS: PTHIN 27.9 pg/mL (18.4-80.1)
== END ==
PROVIDERS: PCP Family Medicine; Referring Provider Psychiatry & Neurology Neurology; Visit Provider Psychiatry & Neurology Neurology
DX: M54.2 Cervicalgia (principal); N18.30 Chronic kidney disease, stage 3 unspecified; Z12.5 Encounter for screening for malignant neoplasm of prostate; R73.9 Hyperglycemia, unspecified; E78.00 Pure hypercholesterolemia, unspecified
CPT/HCPCS: 36415; 72040; 80053; 80061; 81001; 82306; 82570; 83036; 83970; 84100; 84153; 84156; 85025; G0103

== ENCOUNTER 2021-04-29 08:02 | Emergency (ER) | payer MEDICARE, SELFPAY ==
[2021-04-29 08:04] VITALS: BP 131/76; PULSE 63; RESP 16; TEMP 35.6; O2SAT 97; BMI 22.8
--- NOTE | 2021-04-29 08:37 | EDS_ITS ---
HPI History of Present Illness Chief Complaint: Lower Extremity Injury Informant: patient and spouse/S.O. Narrative Narrative: Patient complains of back and left lower extremity pain. This been going on about a week and a half or so. Patient denies any specific injury or inciting event. But he is quite active. 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 Pain is in the left SI joint area across the left buttock goes down the lateral aspect of the left leg and into the left knee. He has back pain all the time but it does not normally radiate down. He denies any bowel or bladder dysfunction. No fevers or chills. No weakness or numbness. The lower back portion is actually better when he walks but then the knee and lower leg bothers him more. He occasionally takes tramadol for his back. He has not had any today. He has had surgery on the knee for a meniscus and anterior cruciate and has been recommended that he may need a knee replacement soon. He evidently saw an orthopedic surgeon her office here in the past week and had x-rays. They think they were x-rays of the hip. These were evidently normal. He was told that if his symptoms worsen he should come to the emergency department. He is scheduled for repeat visit and MRI either Thursday or Thursday. [facility] Medical History Arthritis Bilateral carpal tunnel syndrome Cardiovascular event risk Chronic headache Chronic headaches COVID-19 virus detected (06/2020) Cryptogenic stroke Cubital tunnel syndrome on right Dyspnea on exertion Essential (primary) hypertension GI bleed H/O precordial chest pain History of CVA (cerebrovascular accident) (2017) Hyperlipidemia Nicotine dependence Nonobstructive atherosclerosis of coronary artery MEGHANN (obstructive sleep apnea) Other malaise and fatigue Palpitations Prostate cancer Shortness of breath Smoking greater than 30 pack years Stage 1 mild COPD by GOLD classification Home Medications rosuvastatin 40 mg PO QHS 03/27/13 [History Last Taken 06/17/16 22:00] cholecalciferol (vitamin D3) 1,000 unit PO BID 07/27/13 [History Last Taken 06/17/16 22:00] sucralfate 1 gm PO TID 12/27/13 [History Last Taken 06/18/16 07:00] sennosides 1 tab PO DAILY PRN 06/18/16 [History Last Taken Unknown] ranolazine 500 mg tablet,extended release,12 hr 500 mg PO BID tab 01/21/18 [History Last Taken Unknown] alprazolam 1 mg tablet 1 mg PO TID PRN 05/24/20 [History Last Taken Unknown] ascorbate calcium (vitamin C) 500 mg tablet 500 mg PO DAILY 05/24/20 [History Last Taken Unknown] omega-3 fatty acids 1,000 mg capsule 1,000 mg PO DAILY 05/24/20 [History Last Taken Unknown] omeprazole 20 mg capsule,delayed release 20 mg PO DAILY 05/24/20 [History Last Taken Unknown] right wrist splint #1 ea 05/24/20 [Rx Last Taken Unknown] tramadol 50 mg tablet 50 mg PO 4X/DAY PRN PRN tab 05/24/20 [History Last Taken Unknown] fyajyqw-jmtwpgexusgze-uesydbkp 250 mg-250 mg-65 mg tablet 0.25 tablet PO DAILY PRN tablet 07/26/20 [History Last Taken Unknown] nitroglycerin 0.4 mg sublingual tablet 0.4 mg SUBLINGUAL Q5M PRN #25 tab 08/29/20 [Rx Last Taken Unknown] amlodipine 10 mg tablet 5 mg PO DAILY tab 10/11/20 [History Last Taken Unknown] lisinopril 20 mg tablet 20 mg PO DAILY tab 10/11/20 [History Last Taken Unknown] metoprolol tartrate 50 mg tablet 25 mg PO BID tab 10/11/20 [History Last Taken Unknown] clopidogrel 75 mg tablet 75 mg PO DAILY #30 tab 01/29/21 [Rx Last Taken Unknown] tizanidine 4 mg tablet 8 mg PO QPM PRN #60 tab 02/21/21 [Rx Last Taken Unknown] ubrogepant 100 mg tablet 100 mg PO DAILY PRN #10 tab 02/21/21 [Rx Last Taken Unknown] topiramate 100 mg tablet 100 mg PO BID #60 tablet 03/13/21 [Rx Last Taken Unknown] topiramate 50 mg tablet 50 mg PO BID #60 tab 03/13/21 [Rx Last Taken Unknown] venlafaxine 150 mg capsule,extended release 24 hr 150 mg PO DAILY #30 cap 04/23/21 [Rx Last Taken Unknown] oxycodone-acetaminophen [Percocet] 1 tab PO Q6H PRN 3 Days #12 tab 04/29/21 [Rx Last Taken Unknown] Allergy/AdvReac Type Severity Reaction Status Date / Time atorvastatin calcium Allergy Unknown Verified 04/29/21 08:05 [From Lipitor] Family History Mother Diabetes Alzheimers disease Father Myocardial infarction, Onset Age: 75 Alzheimers disease Other Hypertension Surgical History History of left heart catheterization (05/02/13) History of loop recorder (2017) History of prostatectomy Social History Smoking Status: Current every day smoker tobacco type: cigarettes Tobacco: How many years used: 50 alcohol intake: former details: quit 20 years ago substance use type: does not use caffeine: Yes Type: carbonated beverages what type of physical activity do you participate in: none seatbelt use: always do you feel safe at home: Yes ROS ROS ED Constitutional Constitutional ED: Denies chills or fever(s) Eyes Eyes: Denies blurry vision ENT ENT ED: Denies rhinorrhea or sore throat Cardiovascular Cardiovascular: Denies chest pain Respiratory/Chest Respiratory/Chest: Denies cough or dyspnea Gastrointestinal Gastrointestinal: Denies abdominal pain, constipation, diarrhea, melena, nausea or vomiting Genitourinary Genitourinary ED: Denies dysuria, hematuria or urinary frequency Musculoskeletal Musculoskeletal: Reports back pain and other Details: See history of present illness Integumentary Denies rash Neurologic Neurologic: Denies paresthesias or weakness Endocrine Endocrinology: Denies polydipsia or polyuria Allergic/Immunologic Allergic/Immunologic ED: Denies mouth swelling or urticaria EXAM Physical Exam Const Vital Signs: 04/29/21 08:04 Temperature 96.0 F L Temperature Source Temporal Pulse Rate 63 Respiratory Rate 16 Blood Pressure 131/76 H Blood Pressure Mean 94 Pulse Ox 97 Oxygen Delivery Method Room Air Positive well nourished and well developed Constitutional Narrative: When I first went to see the patient, he was walking back from the bathroom. He was using a cane. General Appearance ED: well developed and NAD; Negative for cyanotic, diaphoretic or pallor HEENT Reports moist mucous membranes Negative for trauma Eyes EOMs intact bilaterally; Negative for PERRL Neck no JVD Chest Wall inspection of chest normal Cardio regular rate, regular rhythm and no murmurs GI normal to inspection, nondistended, normoactive bowel sounds and non-tender Palpation: soft Back/Spine no CVA tenderness Cervical Spine: Negative for cervical spine tenderness Thoracic Spine / Upper Back: Negative for thoracic spinal tenderness Extremity normal to inspection General Extremety ED: Negative for edema General Extremity: Negative for edema Neuro oriented x3 Neuro Narrative: Patient strength and sensation is still intact. Sensorium / Orientation: alert; Negative for lethargic or stuporous Motor Exam: strength 5/5 throughout; Negative for general weakness or strength abnormal Psych mental status grossly normal Mood & Affect: Negative for depressed or tearful Skin no rashes or lesions noted and no wounds General Skin Exam: Negative for jaundice or pallor MDM MDM MDM Narrative Medical decision making narrative: CBC is normal. Electrolytes show mild elevation of BUN. Calcium is normal. CT scan of the pelvis/abdomen showed no sign of bony lesion or explanation for his symptoms. X-ray of the knee shows chronic but no acute changes. I explained the patient that his symptoms are really consistent with sacroiliitis along with some sciatica. They now tell me that he has actually ju st completed a course of steroids for about a week. He is also on baclofen. These are not on his med list and they did not mention them when I brought up any therapy done. I am surprised that the steroids did not help him. He has an MRI later this week. I will give him a few oxycodone as I think he is generally uncomfortable. He states that he takes tramadol occasionally for back pain but is not a routinely prescribed medicine or something he takes regularly. Lab Data Attestation: I reviewed the patient's lab results. Labs: Laboratory Results - last 24 hr 04/29/21 04/29/21 08:50 08:50 WBC 6.3 RBC 4.86 Hgb 14.8 Hct 45.4 MCV 93.4 MCH 30.5 MCHC 32.6 RDW Std Deviation 45.6 H RDW Coeff of Ezekiel 13.2 Plt Count 211 MPV 9.4 Immature Gran % (Auto) 0.300 Neut % (Auto) 69.3 Lymph % (Auto) 21.2 [place] % (Auto) 7.2 Eos % (Auto) 1.0 Baso % (Auto) 1.0 Absolute Neuts (auto) 4.4 Absolute Lymphs (auto) 1.33 Nucleated RBC % 0 Sodium 141 Potassium 3.6 Chloride 112 H Carbon Dioxide 25.0 Anion Gap 4 L BUN 21 H Creatinine 1.08 Estim Creat Clear Calc 58.62 Est GFR (MDRD) Af Amer 86 Est GFR (MDRD) Non-Af 71 BUN/Creatinine Ratio 19.4 Glucose 103 Calcium 9.1 Radiography Diagnostic Testing: Clinical Impression(s) from Imaging Studies Abdomen/Pelvis CT 04/29/21 09:21 IMPRESSION: Stable mild increased markings at the lung bases suggestive of a scarring. Status post prostatectomy. Electronically Signed: Lukas Howard MD at 10:08 EST , Service support , Knee X-Ray 04/29/21 09:55 IMPRESSION: Status post anterior cruciate ligament repair. No acute abnormality is seen. Electronically Signed: Lukas Howard MD at 10:14 EST , Service support , Discharge Plan Triage Chief Complaint: Lower Extremity Injury ED Provider: Angel Lazaro Dx/Rx/DC Orders Clinical Impression: Sacroiliitis, Sciatica Instructions: ED Sciatica Prescriptions: New oxycodone-acetaminophen [Percocet] 5-325 mg tablet 1 tab PO Q6H PRN (Reason: pain) 3 Days Qty: 12 RF: 0 No Action metoprolol tartrate 50 mg tablet 25 mg PO BID RF: 0 amlodipine 10 mg tablet 5 mg PO DAILY RF: 0 lisinopril 20 mg tablet 20 mg PO DAILY RF: 0 alprazolam [Xanax] 1 mg tablet 1 mg PO TID PRN (Reason: Anxiety) RF: 0 omega-3 fatty acids [Fish Oil Concentrate] 1,000 mg capsule 1,000 mg PO DAILY RF: 0 ascorbate calcium (vitamin C) 500 mg tablet 500 mg PO DAILY RF: 0 (DME) right wrist splint See Rx Instructions .Route .MEDSUPPLY Qty: 1 RF: 0 Excedrin Migraine 250-250-65 mg tablet 0.25 tablet PO DAILY PRN (Reason: pain) RF: 0 clopidogrel 75 mg tablet 75 mg PO DAILY Qty: 30 RF: 2 tizanidine 4 mg tablet 8 mg PO QPM PRN (Reason: neck tension) Qty: 60 RF: 4 Ubrelvy 100 mg tablet 100 mg PO DAILY PRN (Reason: headache) Qty: 10 RF: 2 rosuvastatin 5 MG tablet 40 mg PO QHS RF: 0 tramadol 50 mg tablet 50 mg PO 4X/DAY PRN PRN (Reason: Pain) RF: 0 ranolazine 500 mg tablet extended release 12 hr 500 mg PO BID RF: 0 omeprazole 20 mg capsule,delayed release(DR/EC) 20 mg PO DAILY RF: 0 cholecalciferol (vitamin D3) 1,000 UNIT capsule 1,000 unit PO BID RF: 0 sucralfate 1 GM tablet 1 gm PO TID RF: 0 sennosides 1 TABLET tablet 1 tab PO DAILY PRN (Reason: Constipation) RF: 0 nitroglycerin 0.4 mg tablet, sublingual 0.4 mg SUBLINGUAL Q5M PRN (Reason: Chest Pain) Qty: 25 RF: 3 topiramate 100 mg tablet 100 mg PO BID Qty: 60 RF: 1 topiramate 50 mg tablet 50 mg PO BID Qty: 60 RF: 1 venlafaxine 150 mg capsule,extended release 24hr 150 mg PO DAILY Qty: 30 RF: 0 Primary Care Provider: Vik Hudson Referrals: Vik Hudson MD [Primary Care Provider] - 3-5 Days if not improving Disposition Disposition: Home, Self Care
[2021-04-29 09:11] LABS: Absolute Lymphocyte Count 1.33 X10^3/uL (0.83-4.51); Absolute Neutrophil Count 4.4 X10^3/uL (2.0-7.7); Basophil# 0.06 X10^3/uL; Eosinophil# 0.06 X10^3/uL; Hematocrit 45.4 % (40-54); Hemoglobin 14.8 g/dL (13.0-16.5); Lymphocyte # 1.33 X10^3/ul (0.83-4.51); Lymphocyte % 21.2 % (19-41); Mean Corp Hgb Conc 32.6 g/dL (32-36); Mean Corpuscular Hgb 30.5 pg (27.0-32.0); Mean Corpuscular Volume 93.4 fL (80-94); Mean Platelet Vol. 9.4 fl (6.2-12.0); Monocyte# 0.45 X10^3/uL; Monocyte% 7.2 % (0-10); NRBC Flagged by Analyzer 0 % (0-5); Neutrophil # 4.35 X10^3/uL (2.7-7.7); Neutrophil % 69.3 % (47-70); Platelet Count 211 K/mm3 (150-450); RBC Distribution Width CV 13.2 % (11.6-14.6); RBC Distribution Width SD 45.6 fl (35.1-43.9); Red Blood Count 4.86 M/mm3 (4.6-6.2); White Blood Count 6.3 K/mm3 (4.4-11.0)
[2021-04-29] MEDS: Morphine 4 MG/ML Syringe IV (09:11)
--- NOTE | 2021-04-29 09:21 | CT_ITS ---
STUDY: CT ABDOMEN AND PELVIS WITHOUT CONTRAST REASON FOR EXAM: Male, 71 years old. Left-sided flank pain for one week. Patient has a history of prostate carcinoma. RADIATION DOSAGE (If Supplied By Facility): CTDIvol = ( 6.62 ) mGy, DLP = ( 306.17 ) mGycm TECHNIQUE: Transaxial images were obtained from the dome of the diaphragm to the symphysis pubis without oral contrast, and without intravenous contrast. Sagittal and coronal images were reconstructed. Individualized dose optimization techniques were used for this CT. COMPARISON: Comparison is made with prior study dated 09/01/2017. FINDINGS: Stable mild increased linear markings at the lung bases suggestive of mild scarring. Stable calcified granuloma in the right lower lobe. The visualized portions of the heart are within normal limits. Normal liver. Normal gallbladder and extrahepatic biliary system. There are multiple benign calcified granulomata of the spleen. Normal pancreas. Normal bilateral adrenal glands. Normal right kidney. Normal left kidney. Normal visualized stomach. Normal small intestine. There are scattered colonic diverticula consistent with diverticulosis. The appendix is visualized and appears normal. There is diffuse atherosclerotic calcification of the abdominal aorta and its major visceral branches, without a demonstrated aneurysm. Normal inferior vena cava. Normal retroperitoneum. Normal urinary bladder. The patient is status post prostatectomy. Normal abdominal wall. There are degenerative changes of the visualized lumbar spine. CT/Abdomen/Pelvis without Cont IMPRESSION: Stable mild increased markings at the lung bases suggestive of a scarring. Status post prostatectomy. Electronically Signed: Lukas Howard MD at 10:08 EST , Service support ,
[2021-04-29 09:22] LABS: Anion Gap 4 (5-15); BUN 21 mg/dL (7-18); BUN/Creat Ratio 19.4 RATIO (10-20); Calcium,Total 9.1 mg/dL (8.5-10.1); Chloride 112 mmol/L (98-107); Creatinine, Serum 1.08 mg/dL (0.70-1.30); EST Glomerular Filtration Rate 71 mL/min (>60); Est Glom Filt Rate - Afr Amer 86 mL/min (>60); Estimated Creatinine Clearance 58.62 ml/min; Glucose 103 mg/dL (74-106); Potassium 3.6 mmol/L (3.5-5.1); Sodium Level 141 mmol/L (136-145)
--- NOTE | 2021-04-29 09:55 | RAD_ITS ---
STUDY: X-RAY - LEFT KNEE REASON FOR EXAM: Male, 71 years old. Pain TECHNIQUE: 4 view(s) of the knee. COMPARISON: None. FINDINGS: The patient is status post anterior cruciate ligament repair. Metallic anchors are seen in the medial femoral condyle and medial tibial plateau. Normal proximal tibiofibular articulation. Normal medial femorotibial compartment. Normal lateral femorotibial compartment. Normal patellofemoral articulation. 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 RAD/Knee 4 or More Views IMPRESSION: Status post anterior cruciate ligament repair. No acute abnormality is seen. Electronically Signed: Lukas Howard MD at 10:14 EST , Service support ,
[2021-04-29 11:56] VITALS: RESP 14
[2021-04-30 20:15] LABS: PSA, Total <0.1 ng/mL (0.0-4.0)
== END 2021-04-29 11:57 | disposition home or self-care (01) ==
PROVIDERS: Emergency Provider Emergency Medicine; PCP Family Medicine; Visit Provider Emergency Medicine
DX: M46.1 Sacroiliitis, not elsewhere classified (principal); J44.9 Chronic obstructive pulmonary disease, unspecified; F17.210 Nicotine dependence, cigarettes, uncomplicated; M54.30 Sciatica, unspecified side; E78.5 Hyperlipidemia, unspecified; I10 Essential (primary) hypertension; I25.10 Atherosclerotic heart disease of native coronary artery without angina pectoris; Z79.899 Other long term (current) drug therapy; Z79.02 Long term (current) use of antithrombotics/antiplatelets; Z79.82 Long term (current) use of aspirin; Z86.16 Personal history of COVID-19; G47.33 Obstructive sleep apnea (adult) (pediatric); Z85.46 Personal history of malignant neoplasm of prostate; G56.03 Carpal tunnel syndrome, bilateral upper limbs; M19.90 Unspecified osteoarthritis, unspecified site; Z87.19 Personal history of other diseases of the digestive system
CPT/HCPCS: 73564; 74176; 80048; 84153; 85025; 96374; 99283; A4216

== ENCOUNTER 2021-04-30 06:24 | Outpatient (CLI) | payer OTHER, MEDICARE, SELFPAY ==
--- NOTE | 2021-04-30 06:39 | MRI_ITS ---
HISTORY: Radiculopathy, left leg pain, left knee pain/swelling. TECHNIQUE: Multiplanar and multisequence MR images of the lumbar spine. IV Contrast dosage and agent: None. # of images incl. paperwork: 131. COMPARISON: 07/23/2013. FINDINGS: VERTEBRAE: Vertebral body heights maintained. Degenerative bone marrow endplate changes at multiple levels. ALIGNMENT: No significant anterior or posterior subluxation. CONUS: Normal morphology and position at T12-L1. SOFT TISSUES: No paraspinal fluid collection. 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 INTERVERTEBRAL DISCS: T12-L1: No significant posterior disc herniation, central canal stenosis, or foraminal narrowing. L1-2: Mild posterior disc bulge osteophyte complex with facet arthropathy. No significant central canal stenosis or foraminal narrowing. L2-3:Mild posterior disc bulge osteophyte complex with facet arthropathy. Minimal narrowing of the thecal sac. Moderate left and mild right foraminal narrowing, progressed from prior. L3-4: Mild posterior disc bulge also a complex with facet arthropathy. Minimal narrowing of the thecal sac. Moderate-severe left foraminal narrowing mildly increased with abutment of the L3 nerve root. Mild right foraminal narrowing. L4-5: Mild posterior disc bulge osteophyte complex with facet arthropathy resulting in mild central canal stenosis. Severe right foraminal narrowing with probable nerve for impingement and moderate left foraminal narrowing again seen. L5-S1: Mild posterior disc bulge osteophyte complex with facet arthropathy resulting in mild bilateral foraminal narrowing. No significant central canal stenosis. MRI/Spine Lumbar (Routine) IMPRESSION: Multilevel degenerative disc disease as described above. at 0842 Reported and signed by: Christina Diez MD Electronically Signed: Christina Diez MD at 8:41 EST Tel , Service support ,
== END 2021-04-30 23:59 | disposition short-term general hospital (02) ==
LOC: MRI 06:26
PROVIDERS: PCP Family Medicine; Referring Provider Specialist; Visit Provider Specialist
DX: M46.96 Unspecified inflammatory spondylopathy, lumbar region (principal); M48.061 Spinal stenosis, lumbar region without neurogenic claudication; M48.07 Spinal stenosis, lumbosacral region; M54.16 Radiculopathy, lumbar region; M25.78 Osteophyte, vertebrae
CPT/HCPCS: 72148

== ENCOUNTER 2021-05-30 14:16 | Outpatient (CLI) | payer MEDICARE, SELFPAY ==
[2021-05-30 14:21] LABS: Bacteria 0 SEEN /hpf (None Seen); Mucous, Urine 0 SEEN /hpf (<or=2+); Red Blood Cells-Urine 0 SEEN /hpf (0-5); Squamous Epithelial Cells - UA 0 SEEN /hpf (0-5); White Blood Cells 0 SEEN /hpf (0-5)
[2021-05-30 15:26] LABS: Absolute Lymphocyte Count 1.67 X10^3/uL (0.83-4.51); Absolute Neutrophil Count 4.6 X10^3/uL (2.0-7.7); Basophil# 0.04 X10^3/uL; Basophil% 0.6 % (0-1); Eosinophil# 0.07 X10^3/uL; Hematocrit 44.4 % (40-54); Hemoglobin 14.6 g/dL (13.0-16.5); Lymphocyte # 1.67 X10^3/ul (0.83-4.51); Lymphocyte % 24.7 % (19-41); Mean Corp Hgb Conc 32.9 g/dL (32-36); Mean Corpuscular Hgb 31.6 pg (27.0-32.0); Mean Corpuscular Volume 96.1 fL (80-94); Mean Platelet Vol. 10.3 fl (6.2-12.0); Monocyte# 0.38 X10^3/uL; Monocyte% 5.6 % (0-10); NRBC Flagged by Analyzer 0 % (0-5); Neutrophil # 4.57 X10^3/uL (2.7-7.7); Neutrophil % 67.8 % (47-70); Platelet Count 190 K/mm3 (150-450); RBC Distribution Width CV 13.6 % (11.6-14.6); RBC Distribution Width SD 48.5 fl (35.1-43.9); Red Blood Count 4.62 M/mm3 (4.6-6.2); White Blood Count 6.8 K/mm3 (4.4-11.0)
[2021-05-30 15:41] LABS: Color, Urine Yellow (Yellow); Glucose, Dipstick Normal (Normal); Ketone-Dipstick Negative (Negative); Leukocyte Esterase-Dipstick Negative /ul (Negative); Nitrite-Dipstick Negative (Negative); Occult Blood-Urine Negative /ul (Negative); Protein-Dipstick Negative (Negative); Urine Bilirubin Dipstick Negative (Negative); Urine Clarity Clear (Clear); Urine Urobilinogen Normal (Normal); Urine pH 6.5 (5.0 - 8.0)
[2021-05-30 15:46] LABS: ALB/GLOB Ratio 1.1 RATIO (0.9-2.4); AST(SGOT) 15 U/L (15-37); Alanine Aminotransfer ALT/SGPT 29 U/L (16-61); Albumin, Serum 3.8 g/dL (3.2-5.0); Alkaline Phosphatase 69 U/L (45-117); Anion Gap 6 (5-15); BUN 21 mg/dL (7-18); BUN/Creat Ratio 18.3 RATIO (10-20); Calcium,Total 8.8 mg/dL (8.5-10.1); Chloride 111 mmol/L (98-107); Cholesterol 139 mg/dL (200); Creatinine, Serum 1.15 mg/dL (0.70-1.30); EST Glomerular Filtration Rate 66 mL/min (>60); Est Glom Filt Rate - Afr Amer 80 mL/min (>60); Globulin 3.4 g/dL (2.2-4.2); Glucose 89 mg/dL (74-106); High Density Lipoprotein 59 mg/dL; Phosphorus 3.2 mg/dL (2.5-4.9); Potassium 3.5 mmol/L (3.5-5.1); Protein, Total 7.2 g/dL (6.4-8.2); Sodium Level 140 mmol/L (136-145); Thyroid Stim Hormone (TSH) 1.16 uIU/mL (0.358-3.74); Triglycerides 108 mg/dL; Very Low Density Lipoprotein 22 mg/dL (5-40)
[2021-05-30 16:00] LABS: Protein, Urine (Random) 7.8 mg/dL (<11.9); Protein:Creat Ratio 139 mg/g CRE (0-200)
[2021-05-30 16:53] LABS: PTHIN 34.9 pg/mL (18.4-80.1)
== END 2021-05-30 23:59 | disposition home or self-care (01) ==
LOC: MFPLAB 14:18
PROVIDERS: PCP Family Medicine; Referring Provider Family Medicine; Visit Provider Family Medicine
DX: I12.9 Hypertensive chronic kidney disease with stage 1 through stage 4 chronic kidney disease, or unspecified chronic kidney disease (principal); N18.30 Chronic kidney disease, stage 3 unspecified
CPT/HCPCS: 36415; 80053; 80061; 81001; 82570; 83970; 84100; 84156; 84443; 85025

== ENCOUNTER → 2021-08-19 | Outpatient (CLI) | payer MEDICARE, SELFPAY ==
--- NOTE | 2021-08-19 07:53 | ECHOCS_ITS ---
Reason For Study: CHEST PAINS Procedure This was a 2D Doppler, Color Flow transthoracic echocardiogram. Exam performed in department. Left Ventricle Normal LV size. Left ventricular systolic function is normal. The estimated ejection fraction is 60 %. No regional wall motion abnormalities noted. Right Ventricle Normal RV size. Normal systolic function. Atria Normal left atrium. Normal right atrium. Mitral Valve Normal mitral valve. Tricuspid Valve Normal tricuspid valve. Aortic Valve Trisinus/trileaflet aortic valve. Mild focal aortic valve calcification. Pulmonic Valve Normal pulmonic valve. Great Vessels Normal aortic root. The pulmonary artery is normal size. Normal inferior vena cava. Pericardium/Pleural No pericardial effusion. MMode/2D Measurements & Calculations LVIDd: 4.7 cm IVSd: 1.1 cm LVAd ap4: 28.3 cm2 LVIDs: 3.2 cm LVPWd: 0.96 cm LVLd ap4: 7.9 cm RVDd: 3.3 cm FS: 31.3 % EDV(MOD-sp4): 84.3 ml EDV(sp4-el): 86.0 ml LVAs ap4: 17.1 cm2 LVLs ap4: 6.7 cm ESV(MOD-sp4): 37.5 ml ESV(sp4-el): 37.1 ml EF(MOD-sp4): 55.6 % EF(sp4-el): 56.9 % LVAd ap2: 22.9 cm2 SV(MOD-sp4): 46.8 ml SV(MOD-sp2): 38.9 ml LVLd ap2: 6.5 cm EDV(MOD-sp2): 67.3 ml EDV(sp2-el): 68.8 ml LVAs ap2: 14.5 cm2 LVLs ap2: 6.2 cm ESV(MOD-sp2): 28.4 ml ESV(sp2-el): 28.7 ml EF(MOD-sp2): 57.7 % SV(sp4-el): 48.9 ml LA dimension(2D): 3.2 cm LA A4 area: 16.8 cm2 RA A4 area: 11.9 cm2 Doppler Measurements & Calculations MV A max gwyn: 67.5 cm/sec Lat Peak E' Gwyn: 8.5 cm/sec Med Peak E' Gwyn: 5.9 cm/sec Ao V2 max: 156.2 cm/sec LV V1 max: 123.2 cm/sec PA V2 max: 100.9 cm/sec Ao max P.9 mmHg LV V1 max P.1 mmHg Ao V2 mean: 100.7 cm/sec LV V1 mean P.2 mmHg Ao mean P.7 mmHg LV V1 mean: 84.7 cm/sec Ao V2 VTI: 31.8 cm LV V1 VTI: 26.8 cm ECHO/Echo Complete W/ Contrast Interpretation Summary Normal LV size. Left ventricular systolic function is normal. The estimated ejection fraction is 60 %. Mild focal aortic valve calcification. Ordering Physician: Sarah Escobar Referring Physician: Vik Hudson Performed By: Betty Kang RCS
== END | disposition home or self-care (01) ==
LOC: CVS 07:53
PROVIDERS: PCP Family Medicine; Visit Provider Nurse Practitioner Acute Care
DX: R07.89 Other chest pain (principal)
CPT/HCPCS: 93306; C8929

== ENCOUNTER → 2021-08-28 | Outpatient (CLI) | payer MEDICARE, SELFPAY ==
[2021-08-28 11:05] LABS: Bacteria 0 SEEN /hpf (None Seen); Mucous, Urine 0 SEEN /hpf (<or=2+); Red Blood Cells-Urine 0 SEEN /hpf (0-5); Squamous Epithelial Cells - UA 0 SEEN /hpf (0-5); White Blood Cells 0 SEEN /hpf (0-5)
[2021-08-28 12:24] LABS: Absolute Lymphocyte Count 1.87 X10^3/uL (0.83-4.51); Absolute Neutrophil Count 4.5 X10^3/uL (2.0-7.7); Basophil# 0.03 X10^3/uL; Basophil% 0.4 % (0-1); Eosinophil# 0.18 X10^3/uL; Eosinophils% 2.6 % (0-5); Hematocrit 40.6 % (40-54); Hemoglobin 13.2 g/dL (13.0-16.5); Lymphocyte # 1.87 X10^3/ul (0.83-4.51); Lymphocyte % 26.6 % (19-41); Mean Corp Hgb Conc 32.5 g/dL (32-36); Mean Corpuscular Hgb 30.7 pg (27.0-32.0); Mean Corpuscular Volume 94.4 fL (80-94); Mean Platelet Vol. 9.6 fl (6.2-12.0); Monocyte# 0.45 X10^3/uL; Monocyte% 6.4 % (0-10); NRBC Flagged by Analyzer 0 % (0-5); Neutrophil # 4.47 X10^3/uL (2.7-7.7); Neutrophil % 63.4 % (47-70); Platelet Count 193 K/mm3 (150-450); RBC Distribution Width CV 13.3 % (11.6-14.6); RBC Distribution Width SD 46.5 fl (35.1-43.9)
[2021-08-28 12:24] LABS: Color, Urine Yellow (Yellow); Glucose, Dipstick Normal (Normal); Ketone-Dipstick Negative (Negative); Leukocyte Esterase-Dipstick Negative /ul (Negative); Nitrite-Dipstick Negative (Negative); Occult Blood-Urine Negative /ul (Negative); Protein-Dipstick Negative (Negative); Urine Bilirubin Dipstick Negative (Negative); Urine Clarity Clear (Clear); Urine Urobilinogen Normal (Normal)
[2021-08-28 12:45] LABS: PTHIN 29.5 pg/mL (18.4-80.1)
[2021-08-28 12:56] LABS: AST(SGOT) 16 U/L (15-37); Alanine Aminotransfer ALT/SGPT 23 U/L (16-61); Albumin, Serum 3.5 g/dL (3.2-5.0); Alkaline Phosphatase 72 U/L (45-117); Anion Gap 5 (5-15); BUN 21 mg/dL (7-18); BUN/Creat Ratio 16.9 RATIO (10-20); Calcium,Total 8.5 mg/dL (8.5-10.1); Chloride 110 mmol/L (98-107); Cholesterol 138 mg/dL (200); Creatinine, Serum 1.24 mg/dL (0.70-1.30); EST Glomerular Filtration Rate 61 mL/min (>60); Est Glom Filt Rate - Afr Amer 73 mL/min (>60); Globulin 3.5 g/dL (2.2-4.2); Glucose 99 mg/dL (74-106); High Density Lipoprotein 49 mg/dL; PSA,Total- Diagnostic < 0.01 ng/mL (0.0-4.0); Potassium 4.4 mmol/L (3.5-5.1); Sodium Level 138 mmol/L (136-145); Thyroid Stim Hormone (TSH) 0.87 uIU/mL (0.358-3.74); Triglycerides 75 mg/dL; Very Low Density Lipoprotein 15 mg/dL (5-40)
[2021-08-28 12:59] LABS: Protein, Urine (Random) 7.1 mg/dL (<11.9); Protein:Creat Ratio 181 mg/g CRE (0-200)
== END | disposition home or self-care (01) ==
LOC: MTLAB 10:54
PROVIDERS: PCP Family Medicine; Referring Provider Family Medicine; Visit Provider Family Medicine
DX: I12.9 Hypertensive chronic kidney disease with stage 1 through stage 4 chronic kidney disease, or unspecified chronic kidney disease (principal); N18.30 Chronic kidney disease, stage 3 unspecified; Z85.46 Personal history of malignant neoplasm of prostate
CPT/HCPCS: 80053; 80061; 81001; 82570; 83970; 84100; 84153; 84156; 84443; 85025

== ENCOUNTER → 2021-08-29 | Outpatient (CLI) | payer MEDICARE, SELFPAY ==
--- NOTE | 2021-08-29 18:36 | STRESSREP ---
Stress Test Report Exercise myocardial region stress test. 71-year-old male with a history of chest pain. Stress protocol: Resting EKG demonstrates normal sinus rhythm with a rate of 67 bpm normal intervals are noted resting blood pressure is 116/72 mmHg. The patient exercised according to regular Johnson protocol for total duration of 6 minutes. The maximum heart rate attained was 129 bpm which was 87% of maximum predicted heart rate the maximum workload was 7 metabolic equivalents. At rest there were no ST or T wave changes noted suggest ischemia and at peak exercise upsloping ST changes were noted with did not meet the criteria for ischemia. No clinical angina was noted the test was terminated due to leg fatigue. The peak blood pressure was 154/58 mmHg. Myocardial perfusion protocol. 11.4 mCi of technetium 99m sestamibi was injected at rest. The patient exercised according to regular Johnson protocol for total duration of 6 minutes and at peak exercise 33.5 mCi of technetium 99m sestamibi was injected stress images were obtained stress and rest images were reconstructed in comparing the short axis vertical long and horizontal long axis. Gated images were also obtained to Perfusion SPECT analysis: Review of the stress images demonstrate normal uptake of tracer noted in all areas of the myocardium. The resting images similar demonstrate normal uptake of tracer noted in all areas of the myocardium. No areas of reversibility are noted suggest ischemia and no previous infarct is noted. Gated SPECT analysis: The gated ejection fraction is 67%. Conclusion: Normal exercise myocardial perfusion stress test at a moderate workload. Preserved ejection fraction.
== END | disposition home or self-care (01) ==
LOC: CVS 06:56
PROVIDERS: PCP Family Medicine; Referring Provider Physician Assistant Medical; Visit Provider Physician Assistant Medical
DX: R07.9 Chest pain, unspecified (principal)
CPT/HCPCS: 78452; 93017; A9500; A4216

== ENCOUNTER → 2021-09-05 | Outpatient (CLI) | payer MEDICARE, SELFPAY ==
--- NOTE | 2021-09-05 08:24 | CT_ITS ---
STUDY: LOW DOSE CT LUNG CANCER SCREENING REASON FOR EXAM: Male, 71 years old. Patient smokes 1.5 packs per day for 53 years. RADIATION DOSAGE (If Supplied By Facility): CTDIvol = ( 2.01 ) mGy, DLP = ( 77.51 ) mGycm TECHNIQUE: No contrast was administered. Low dose technique was utilized (average mAS-38 and kVp 120). 1.25 mm axial source images with a slice interval of 1.25-mm were reconstructed in lung windows. 2.5 mm axial source images with a slice interval of 2.5-mm were reconstructed in lung windows. 5.0 mm axial source images with a slice interval of 5.0-mm were reconstructed in soft tissue windows. COMPARISON: Comparison is made with prior study dated 09/20/2020. NODULES: Stable 2 mm calcified granuloma in the peripheral anterior lateral aspect of the right upper lobe as seen on axial image #153. Emphysema: Hyperinflation. Mild with increased markings at the lung bases suggestive of a scarring slightly more prominent on the right base. Stable mild linear scarring in the lingular segment of the left upper lobe. Endobronchial lesion: None Aorta: Calcified plaques at the level of the aortic arch. CORONARY ARTERIES: Coronary artery calcification is seen. Heart: Unremarkable Pulmonary artery: Unremarkable Mediastinal nodes: Stable 1.1 cm lymph node in the prevascular space. Other chest and abdominal findings: CT/Low Dose CT Lung Screening IMPRESSION: Lung-RADS category 2 - Continue annual screening with LDCT in 12 months. IMPORTANT NOTES FOR USE: ACR Lung-RADS Version 1.1 Assessment Categories Release Date: 2018 Category: Coded 0-4 bases on nodule(s) with highest degree of suspicion. Negative screen is defined as categories 1 and 2; a positive screen is defined as categories 3 and 4. Category 3 and 4A nodules that are unchanged on interval CT should be coded as category 2, and individuals returned to screening in 12 months. Category 4X: Category 3 or 4 nodules with additional imaging findings that increase the suspicion of lung cancer, such as spiculation, GGN that doubles in size in 1 year, enlarged lymph notes, etc. Category Modifiers: S (significant finding unrelated to lung cancer) Electronically Signed: Lukas Howard MD at 12:04 EDT ,
--- NOTE | 2021-09-06 10:07 | PFT ---
INTRODUCTION: The patient is a 71-year-old male that presents for pulmonary function studies secondary to a diagnosis of COPD. Respiratory therapy reported good patient effort. Bronchodilators were used during testing. INTERPRETATION: Forced expiration spirometry demonstrates the presence of a mild large airways obstructive ventilatory defect. There is no significant response to aerosolized bronchodilators. Spirograms are of good quality and plateau gradually indicating slow emptying of the lungs. Body plethysmography was performed and revealed lung volumes to be within normal limits. Diffusing capacity by single breath CO is also within normal limits. IMPRESSION: Irreversible mild large airways obstructive ventilatory defect with preserved lung volumes and diffusing capacity.
== END | disposition home or self-care (01) ==
LOC: PSN 08:24
PROVIDERS: PCP Family Medicine; Referring Provider Nurse Practitioner Acute Care; Visit Provider Nurse Practitioner Acute Care
DX: Z87.891 Personal history of nicotine dependence (principal); J44.9 Chronic obstructive pulmonary disease, unspecified
CPT/HCPCS: 71271; 94060; 94726; 94729

== ENCOUNTER → 2022-01-07 | Outpatient (CLI) | payer MEDICARE, SELFPAY ==
[2022-01-07 10:38] LABS: Bacteria 0 SEEN /hpf (None Seen); Mucous, Urine 0 SEEN /hpf (<or=2+); Red Blood Cells-Urine 0 SEEN /hpf (0-5); Squamous Epithelial Cells - UA 0 SEEN /hpf (0-5); White Blood Cells 0 SEEN /hpf (0-5)
[2022-01-07 12:08] LABS: Absolute Lymphocyte Count 1.86 X10^3/uL (0.83-4.51); Absolute Neutrophil Count 2.8 X10^3/uL (2.0-7.7); Basophil# 0.06 X10^3/uL; Basophil% 1.1 % (0-1); Eosinophil# 0.14 X10^3/uL; Eosinophils% 2.7 % (0-5); Hematocrit 43.8 % (40-54); Hemoglobin 14.3 g/dL (13.0-16.5); Lymphocyte # 1.86 X10^3/ul (0.83-4.51); Lymphocyte % 35.4 % (19-41); Mean Corp Hgb Conc 32.6 g/dL (32-36); Mean Corpuscular Hgb 30.6 pg (27.0-32.0); Mean Corpuscular Volume 93.8 fL (80-94); Mean Platelet Vol. 10.1 fl (6.2-12.0); Monocyte% 7.6 % (0-10); NRBC Flagged by Analyzer 0 % (0-5); Neutrophil # 2.78 X10^3/uL (2.7-7.7); Neutrophil % 52.8 % (47-70); Platelet Count 176 K/mm3 (150-450); RBC Distribution Width CV 13.9 % (11.6-14.6); RBC Distribution Width SD 47.5 fl (35.1-43.9); Red Blood Count 4.67 M/mm3 (4.6-6.2); White Blood Count 5.3 K/mm3 (4.4-11.0)
[2022-01-07 12:23] LABS: Vitamin D,25 Hydroxy 88.1 ng/mL
[2022-01-07 12:28] LABS: Color, Urine Yellow (Yellow); Glucose, Dipstick Normal (Normal); Ketone-Dipstick Negative (Negative); Leukocyte Esterase-Dipstick Negative /ul (Negative); Nitrite-Dipstick Negative (Negative); Occult Blood-Urine Negative /ul (Negative); Protein-Dipstick Negative (Negative); Urine Bilirubin Dipstick Negative (Negative); Urine Clarity Clear (Clear); Urine Urobilinogen Normal (Normal)
[2022-01-07 12:35] LABS: AST(SGOT) 15 U/L (15-37); Alanine Aminotransfer ALT/SGPT 21 U/L (16-61); Albumin, Serum 3.4 g/dL (3.2-5.0); Alkaline Phosphatase 65 U/L (45-117); Anion Gap 5 (5-15); BUN 17 mg/dL (7-18); BUN/Creat Ratio 13.4 RATIO (10-20); Calcium,Total 8.9 mg/dL (8.5-10.1); Chloride 113 mmol/L (98-107); Cholesterol 120 mg/dL (200); Creatinine, Serum 1.27 mg/dL (0.70-1.30); EST Glomerular Filtration Rate 59 mL/min (>60); Est Glom Filt Rate - Afr Amer 71 mL/min (>60); Globulin 3.4 g/dL (2.2-4.2); Glucose 97 mg/dL (74-106); High Density Lipoprotein 50 mg/dL; Phosphorus 4.1 mg/dL (2.5-4.9); Potassium 4.1 mmol/L (3.5-5.1); Protein, Total 6.8 g/dL (6.4-8.2); Sodium Level 140 mmol/L (136-145); Thyroid Stim Hormone (TSH) 1.32 uIU/mL (0.358-3.74); Triglycerides 66 mg/dL; Very Low Density Lipoprotein 13 mg/dL (5-40)
[2022-01-07 12:39] LABS: PTHIN 42.1 pg/mL (18.4-80.1)
[2022-01-07 12:53] LABS: Protein, Urine (Random) 6.4 mg/dL (<11.9); Protein:Creat Ratio 119 mg/g CRE (0-200)
== END | disposition home or self-care (01) ==
LOC: MFPLAB 09:48
PROVIDERS: PCP Family Medicine; Visit Provider Family Medicine
DX: I10 Essential (primary) hypertension (principal); N18.30 Chronic kidney disease, stage 3 unspecified; E78.00 Pure hypercholesterolemia, unspecified
CPT/HCPCS: 36415; 80053; 80061; 81001; 82306; 82570; 83970; 84100; 84156; 84443; 85025

== ENCOUNTER → 2022-02-06 | Outpatient (CLI) | payer MEDICARE, SELFPAY ==
--- NOTE | 2022-02-06 07:19 | US_ITS ---
STUDY: ULTRASOUND - URINARY BLADDER REASON FOR EXAM: Male, 71 years old. Hematuria TECHNIQUE: Ultrasound evaluation of the urinary bladder was performed with real-time and static geronimo-scale imaging. COMPARISON: None. FINDINGS: There is no right UVJ calculus. There is a visualized right ureteral jet. There is no left UVJ calculus. There is a visualized left ureteral jet. The distended volume of the urinary bladder is 111 ml. The empty volume of the urinary bladder is 9 ml. The bladder wall is within normal limits. The bladder wall measures . There is no demonstrated bladder wall mass lesion. There are no demonstrated bladder calculi. US/Post Void Residual Bladder IMPRESSION: Normal ultrasound of the urinary bladder. Electronically Signed: Jim Quiñones MD at 9:20 EDT ,
== END | disposition home or self-care (01) ==
LOC: US 07:18
PROVIDERS: PCP Family Medicine; Referring Provider Family Medicine; Visit Provider Family Medicine
DX: R31.9 Hematuria, unspecified (principal); R33.9 Retention of urine, unspecified
CPT/HCPCS: 51798

== ENCOUNTER → 2022-04-22 | Outpatient (CLI) | payer MEDICARE, SELFPAY ==
--- NOTE | 2022-04-22 10:10 | RAD_ITS ---
STUDY: X-RAY CHEST REASON FOR EXAM: Male, 72 years old. chest pain TECHNIQUE: XR Chest 2 Views COMPARISON: 01.21.18 FINDINGS: There is atherosclerotic calcification of the aortic arch with tortuosity. There are diffuse degenerative changes of the visualized thoracic spine. There is degenerative osteoarthritis of the bilateral shoulders. There is no demonstrated pleural abnormality. Normal size heart. Normal mediastinum and alessandra. Normal visualized pulmonary arteries. There is no demonstrated abnormality of the visualized soft tissue structures of the upper abdomen. RAD/Chest PA and Lateral IMPRESSION: There are no acute findings. Electronically Signed: Vicente Hoover MD at 17:59 EST ,
[2022-04-22 11:23] LABS: Absolute Lymphocyte Count 1.84 X10^3/uL (0.83-4.51); Absolute Neutrophil Count 3.8 X10^3/uL (2.0-7.7); Basophil# 0.05 X10^3/uL; Basophil% 0.8 % (0-1); Eosinophil# 0.16 X10^3/uL; Eosinophils% 2.5 % (0-5); Hematocrit 44.2 % (40-54); Hemoglobin 14.1 g/dL (13.0-16.5); Lymphocyte # 1.84 X10^3/ul (0.83-4.51); Lymphocyte % 28.9 % (19-41); Mean Corp Hgb Conc 31.9 g/dL (32-36); Mean Corpuscular Hgb 30.1 pg (27.0-32.0); Mean Corpuscular Volume 94.4 fL (80-94); Mean Platelet Vol. 10.3 fl (6.2-12.0); Monocyte# 0.48 X10^3/uL; Monocyte% 7.5 % (0-10); NRBC Flagged by Analyzer 0 % (0-5); Neutrophil # 3.82 X10^3/uL (2.7-7.7); Platelet Count 145 K/mm3 (150-450); RBC Distribution Width CV 13.7 % (11.6-14.6); RBC Distribution Width SD 47.6 fl (35.1-43.9); Red Blood Count 4.68 M/mm3 (4.6-6.2); White Blood Count 6.4 K/mm3 (4.4-11.0)
[2022-04-22 11:52] LABS: Anion Gap 6 (5-15); BUN 23 mg/dL (7-18); BUN/Creat Ratio 16.2 RATIO (10-20); Calcium,Total 8.6 mg/dL (8.5-10.1); Chloride 113 mmol/L (98-107); Creatinine, Serum 1.42 mg/dL (0.70-1.30); EST Glomerular Filtration Rate 52 mL/min (>60); Est Glom Filt Rate - Afr Amer 63 mL/min (>60); Glucose 87 mg/dL (74-106); Potassium 3.9 mmol/L (3.5-5.1); Sodium Level 142 mmol/L (136-145)
== END | disposition home or self-care (01) ==
LOC: RAD 10:08
PROVIDERS: PCP Family Medicine; Referring Provider Internal Medicine Cardiovascular Disease; Visit Provider Internal Medicine Cardiovascular Disease
DX: M19.011 Primary osteoarthritis, right shoulder (principal); M19.012 Primary osteoarthritis, left shoulder; R07.9 Chest pain, unspecified; I10 Essential (primary) hypertension; E78.5 Hyperlipidemia, unspecified
CPT/HCPCS: 36415; 71046; 80048; 85025

== ENCOUNTER 2022-04-28 07:20 | Day surgery (SDC) | payer MEDICARE, SELFPAY ==
[2022-04-25 08:48] VITALS: BMI 22.8
--- NOTE | 2022-04-28 08:58 | CL.D_ITS ---
Patient Name: SELENE SAMUEL Study Date: 04/28/2022 Performing: Jaxson Arevalo MD Ht: 68 inches 172.72 cm : 1950 Wt: 150 lbs 68.04 kg Age: 72 Gender: male BSA: 1.81 PROCEDURE(S) PERFORMED DC01-([id number])LHC/COR/LV CLINICAL PROFILE AND INDICATIONS Indications: Suspected CAD Heart Failure: None Stress/Imaging Stress/Image Study Performed: No CAD Presentations: Unstable angina. CONCLUSIONS Non obstructive coronary arteries RECOMMENDATIONS Medical therapy DESCRIPTION OF PROCEDURE The patient arrived to the procedure lab. The risks and benefits of the procedure as well as a full description of our services here and current unavailability of surgical backup were fully explained to the patient and/or their significant other prior to the catheterization. The Timeout was completed, verifying the correct patient and procedure. The patient's procedural site was prepped and draped in the usual fashion. Local anesthetic was given subcutaneously to right radial region with Lidocaine 2%. Using a modified Seldinger technique, arterial access was obtained via the right radial artery, a 6Fr sheath was inserted. Left Coronary Artery selective angiography was performed in multiple views using a 5 Fr. 4.0 [place] catheter. Right Coronary Artery selective angiography was then performed in multiple views using a 5 Fr. 4.0 [place] catheter. Left Ventriculography was performed in FOSTER projection using a 5 Fr. Pigtail catheter. LV to AO pullback pressures were then recorded.The arterial sheath was pulled and a TR Band was applied for hemostasis. 10cc of air CORONARY ANGIOGRAPHY DOMINANCE: Right Dominant LEFT HEART ASSESSMENT Left Ventricular Ejection Fraction: by LV Gram 55 % Normal LV wall motion Normal Left Ventricular systolic function LEFT MAIN: Angiographically normal LEFT ANTERIOR DESCENDING ARTERY: Anterior descending artery is a medium size vessel with mildly diminished flow but with no high-grade stenosis that we diffuse disease estimated at 30 to 50%. CIRCUMFLEX ARTERY: Mild luminal irregularities less than 30% RIGHT CORONARY ARTERY: Moderate luminal irregularities up to 50% COMPLICATIONS No Complications PROCEDURE MEDICATIONS Fentanyl 50 mcg IV Versed 1 mg IV Heparin given IA 04/28/2022 08:38:27 Verapamil 2.5mg, Ntg 100mcgs, 3000 units of Heparin given IA 04/28/2022 08:38:27 SUMMARY OF HEMODYNAMIC DATA Time AIR REST ECG 07:44:22 AO 84/60 (73) SA 08:43:12 LV 74/26, 28 08:46:49 LV 81/25, 27 08:46:57 LV 92/23, 26 08:48:10 LVp 92/67, 71 08:49:09 AOp 92/-46 (25) 08:49:16 Signed By Jaxson Arevalo MD On 04/28/2022 08:58:04 Jaxson Arevalo MD
== END 2022-04-28 10:35 | disposition home or self-care (01) ==
LOC: CLSP 07:21
PROVIDERS: PCP Family Medicine; Referring Provider Internal Medicine Cardiovascular Disease; Visit Provider Internal Medicine Cardiovascular Disease
DX: I25.110 Atherosclerotic heart disease of native coronary artery with unstable angina pectoris (principal); J44.9 Chronic obstructive pulmonary disease, unspecified; I10 Essential (primary) hypertension; E78.5 Hyperlipidemia, unspecified; F41.9 Anxiety disorder, unspecified; G47.33 Obstructive sleep apnea (adult) (pediatric); M50.30 Other cervical disc degeneration, unspecified cervical region; F17.210 Nicotine dependence, cigarettes, uncomplicated; Z79.82 Long term (current) use of aspirin; Z79.899 Other long term (current) drug therapy; Z85.46 Personal history of malignant neoplasm of prostate; Z86.73 Personal history of transient ischemic attack (TIA), and cerebral infarction without residual deficits
CPT/HCPCS: 93458; 99152; 99153; J7040; C1769; C1894; Q9967

== ENCOUNTER → 2022-05-02 | Outpatient (CLI) | payer MEDICARE, SELFPAY | END | disposition home or self-care (01) | PROVIDERS: PCP Family Medicine; Referring Provider Psychiatry & Neurology Neurology; Visit Provider Psychiatry & Neurology Neurology | DX: Z86.73 Personal history of transient ischemic attack (TIA), and cerebral infarction without residual deficits (principal) | CPT/HCPCS: 36415 ==

== ENCOUNTER → 2022-05-14 | Outpatient (CLI) | payer MEDICARE, SELFPAY ==
[2022-05-14 10:31] LABS: Hemoglobin A1c 5.1 % (3.8-5.6)
[2022-05-14 11:02] LABS: ALB/GLOB Ratio 1.3 RATIO (0.9-2.4); AST(SGOT) 17 U/L (15-37); Alanine Aminotransfer ALT/SGPT 20 U/L (16-61); Albumin, Serum 3.7 g/dL (3.2-5.0); Alkaline Phosphatase 65 U/L (45-117); Anion Gap 5 (5-15); BUN 18 mg/dL (7-18); BUN/Creat Ratio 16.7 RATIO (10-20); Calcium,Total 8.8 mg/dL (8.5-10.1); Chloride 113 mmol/L (98-107); Cholesterol 133 mg/dL (200); Creatinine, Serum 1.08 mg/dL (0.70-1.30); EST Glomerular Filtration Rate 71 mL/min (>60); Est Glom Filt Rate - Afr Amer 86 mL/min (>60); Globulin 2.8 g/dL (2.2-4.2); Glucose 90 mg/dL (74-106); High Density Lipoprotein 52 mg/dL; Phosphorus 3.5 mg/dL (2.5-4.9); Potassium 4.2 mmol/L (3.5-5.1); Protein, Total 6.5 g/dL (6.4-8.2); Sodium Level 143 mmol/L (136-145); Triglycerides 145 mg/dL; Very Low Density Lipoprotein 29 mg/dL (5-40)
[2022-05-14 11:46] LABS: Vitamin D,25 Hydroxy 75.5 ng/mL
[2022-05-14 11:55] LABS: Absolute Neutrophil Count 2.6 X10^3/uL (2.0-7.7); Basophil# 0.04 X10^3/uL; Basophil% 0.8 % (0-1); Eosinophil# 0.13 X10^3/uL; Eosinophils% 2.7 % (0-5); Hematocrit 43.6 % (40-54); Hemoglobin 13.9 g/dL (13.0-16.5); Lymphocyte % 34.8 % (19-41); Mean Corp Hgb Conc 31.9 g/dL (32-36); Mean Corpuscular Volume 94.2 fL (80-94); Mean Platelet Vol. 10.4 fl (6.2-12.0); Monocyte# 0.42 X10^3/uL; Monocyte% 8.6 % (0-10); NRBC Flagged by Analyzer 0 % (0-5); Neutrophil # 2.58 X10^3/uL (2.7-7.7); Neutrophil % 52.7 % (47-70); Platelet Count 156 K/mm3 (150-450); RBC Distribution Width CV 13.7 % (11.6-14.6); Red Blood Count 4.63 M/mm3 (4.6-6.2); White Blood Count 4.9 K/mm3 (4.4-11.0)
[2022-05-14 12:14] LABS: PTHIN 32.6 pg/mL (18.4-80.1)
== END | disposition home or self-care (01) ==
PROVIDERS: PCP Family Medicine; Referring Provider Family Medicine; Visit Provider Family Medicine
DX: I12.9 Hypertensive chronic kidney disease with stage 1 through stage 4 chronic kidney disease, or unspecified chronic kidney disease (principal); N18.30 Chronic kidney disease, stage 3 unspecified; F17.200 Nicotine dependence, unspecified, uncomplicated; E78.00 Pure hypercholesterolemia, unspecified
CPT/HCPCS: 36415; 80053; 80061; 82306; 83036; 83970; 84100; 85025

== ENCOUNTER → 2022-06-23 | Outpatient (CLI) | payer MEDICARE, SELFPAY | END | disposition home or self-care (01) | LOC: PSN 08:52 | PROVIDERS: PCP Family Medicine; Visit Provider Nurse Practitioner Family | DX: R00.0 Tachycardia, unspecified (principal); I25.10 Atherosclerotic heart disease of native coronary artery without angina pectoris | CPT/HCPCS: 93225; 93226 ==

== ENCOUNTER → 2022-07-21 | Outpatient (CLI) | payer MEDICARE, SELFPAY ==
[2022-07-21 12:42] LABS: Anion Gap 4 (5-15); BUN 16 mg/dL (7-18); BUN/Creat Ratio 13.4 RATIO (10-20); Calcium,Total 9.2 mg/dL (8.5-10.1); Chloride 108 mmol/L (98-107); Creatinine, Serum 1.19 mg/dL (0.70-1.30); EST Glomerular Filtration Rate 64 mL/min (>60); Est Glom Filt Rate - Afr Amer 77 mL/min (>60); Glucose 92 mg/dL (74-106); Potassium 4.6 mmol/L (3.5-5.1); Sodium Level 137 mmol/L (136-145)
== END | disposition home or self-care (01) ==
LOC: MFPLAB 10:04
PROVIDERS: PCP Family Medicine; Visit Provider Family Medicine
DX: I10 Essential (primary) hypertension (principal)
CPT/HCPCS: 36415; 80048

== ENCOUNTER → 2022-08-27 | Outpatient (CLI) | payer MEDICARE, SELFPAY ==
--- NOTE | 2022-08-27 14:57 | PFTCOMP_ITS ---
COMPLETE PULMONARY FUNCTION TEST INTERPRETATION Brief HPI: Patient is a 72-year-old male, currently under the care of myself, who presents to [facility] for complete pulmonary function tests secondary to diagnosis of COPD. Respiratory therapist reports good effort and reproducible results. Interpretation: Forced expiration spirometry shows a mild large airways obstructive ventilatory defect with an FEV1 of 76% predicted. There is a significant bronchodilator response in FEV1 by strict ATS criteria. Spirograms are of good quality and plateau slowly, indicating slowly emptying areas of the lungs. The respiratory flow volume loop shows decreased expiratory flow rates at all lung volumes consistent with airway obstruction. Lung volumes by body plethysmography show an elevated total lung capacity at 7.02 L, 117% predicted. FRC and RV are elevated out of proportion. Lung volume measurements are consistent with hyperinflation and air-trapping. Diffusion capacity by carbon monoxide is normal at 83% predicted. The airway resistance is elevated. Compared to previous pulmonary function tests from 09/05/2021, there is been a significant worsening in spirometry, DLCO and air-trapping. Impression: Partially reversible mild large airways obstructive ventilatory defect resulting in air trapping with hyperinflation, and a significant decline compared to previous testing
== END | disposition home or self-care (01) ==
LOC: PSN 07:47
PROVIDERS: PCP Family Medicine; Referring Provider Family Medicine; Visit Provider Family Medicine
DX: J44.9 Chronic obstructive pulmonary disease, unspecified (principal)
CPT/HCPCS: 94060; 94726; 94729

== ENCOUNTER → 2022-09-06 | Outpatient (CLI) | payer MEDICARE, SELFPAY ==
--- NOTE | 2022-09-06 07:38 | CT_ITS ---
INDICATION: smoker EXAMINATION: CT Low Dose CT Chest for Lung Cancer Screening TECHNIQUE: Helically acquired images were obtained of the chest with sagittal and coronal reconstructed images. Low-dose technique was utilized. Individualized dose optimization techniques were used for this CT. COMPARISON: 09/05/2021 CT. FINDINGS: LUNGS, PLEURA AND LARGE AIRWAYS: No consolidation or edema. Stable 2 mm calcified granuloma in the right lung apex. Stable calcified right middle lobe pulmonary nodule. 2 mm left lower lobe pulmonary nodule image #36 of series #2 which is not definitely calcified and is unchanged as compared to the prior CT. Stable 3 mm calcified granuloma in the left lower lobe. Stable 3 mm noncalcified nodule anterior to the left fissure in the left upper lobe. Stable 2 mm noncalcified nodule in the left upper lobe image #80 of series #2. No pleural effusion. No pneumothorax. Hyperinflation. Mild centrilobular emphysematous changes. THYROID: Unremarkable. HEART AND PERICARDIUM: Coronary artery calcifications are present. No pericardial effusion. MEDIASTINUM AND WHITNEY: Calcified mediastinal and right hilar lymph nodes. Esophagus is unremarkable. No hiatal hernia. VESSELS: No thoracic aortic aneurysm. UPPER ABDOMEN: Calcifications in the spleen consistent with benign old granulomatous disease. BONES: No focal osseous abnormality. CT/Low Dose CT Lung Screening IMPRESSION: Multiple pulmonary nodules as described above, with the largest measuring 3 mm, and all stable to 09/05/2021. Category 2 (benign appearance or behavior, <1% chance of malignancy). Continue annual screening with LDCT. Electronically Signed: Nikolay Arriola DO at 6:13 EDT ,
== END | disposition home or self-care (01) ==
LOC: CT 07:35
PROVIDERS: PCP Family Medicine; Referring Provider Nurse Practitioner Acute Care; Visit Provider Nurse Practitioner Acute Care
DX: Z12.2 Encounter for screening for malignant neoplasm of respiratory organs (principal); F17.210 Nicotine dependence, cigarettes, uncomplicated
CPT/HCPCS: 71271

== ENCOUNTER → 2022-09-24 | Outpatient (CLI) | payer MEDICARE, SELFPAY ==
[2022-09-24 15:57] LABS: Bacteria 0 SEEN /hpf (None Seen); Mucous, Urine 0 SEEN /hpf (<or=2+); Red Blood Cells-Urine 0 SEEN /hpf (0-5); Squamous Epithelial Cells - UA 0 SEEN /hpf (0-5); White Blood Cells 0 SEEN /hpf (0-5)
[2022-09-24 17:43] LABS: Color, Urine Yellow (Yellow); Glucose, Dipstick Normal (Normal); Ketone-Dipstick Negative (Negative); Leukocyte Esterase-Dipstick Negative /ul (Negative); Nitrite-Dipstick Negative (Negative); Occult Blood-Urine Negative /ul (Negative); Protein-Dipstick Negative (Negative); Urine Bilirubin Dipstick Negative (Negative); Urine Clarity Clear (Clear); Urine Urobilinogen Normal (Normal)
[2022-09-24 17:43] LABS: Absolute Lymphocyte Count 1.68 X10^3/uL (0.83-4.51); Absolute Neutrophil Count 3.8 X10^3/uL (2.0-7.7); Basophil# 0.03 X10^3/uL; Basophil% 0.5 % (0-1); Eosinophil# 0.13 X10^3/uL; Eosinophils% 2.1 % (0-5); Hematocrit 42.6 % (40-54); Hemoglobin 14.2 g/dL (13.0-16.5); Lymphocyte # 1.68 X10^3/ul (0.83-4.51); Mean Corp Hgb Conc 33.3 g/dL (32-36); Mean Corpuscular Hgb 29.8 pg (27.0-32.0); Mean Corpuscular Volume 89.5 fL (80-94); Mean Platelet Vol. 9.8 fl (6.2-12.0); Monocyte# 0.55 X10^3/uL; Monocyte% 8.8 % (0-10); NRBC Flagged by Analyzer 0 % (0-5); Neutrophil # 3.82 X10^3/uL (2.7-7.7); Neutrophil % 61.3 % (47-70); Platelet Count 200 K/mm3 (150-450); RBC Distribution Width CV 13.8 % (11.6-14.6); RBC Distribution Width SD 45.4 fl (35.1-43.9); Red Blood Count 4.76 M/mm3 (4.6-6.2); White Blood Count 6.2 K/mm3 (4.4-11.0)
[2022-09-24 17:56] LABS: Protein, Urine (Random) 8.8 mg/dL (<11.9); Protein:Creat Ratio 91 mg/g CRE (0-200)
[2022-09-24 18:33] LABS: AST(SGOT) 18 U/L (15-37); Alanine Aminotransfer ALT/SGPT 21 U/L (16-61); Albumin, Serum 3.6 g/dL (3.2-5.0); Alkaline Phosphatase 84 U/L (45-117); Anion Gap 9 (5-15); BUN 9 mg/dL (7-18); BUN/Creat Ratio 7.2 RATIO (10-20); Calcium,Total 9.1 mg/dL (8.5-10.1); Chloride 105 mmol/L (98-107); Cholesterol 126 mg/dL (200); Creatinine, Serum 1.25 mg/dL (0.70-1.30); EST Glomerular Filtration Rate 60 mL/min (>60); Est Glom Filt Rate - Afr Amer 73 mL/min (>60); Globulin 3.5 g/dL (2.2-4.2); Glucose 107 mg/dL (74-106); High Density Lipoprotein 50 mg/dL; PSA,Total- Diagnostic < 0.01 ng/mL (0.0-4.0); Phosphorus 2.9 mg/dL (2.5-4.9); Protein, Total 7.1 g/dL (6.4-8.2); Sodium Level 137 mmol/L (136-145); Thyroid Stim Hormone (TSH) 0.99 uIU/mL (0.358-3.74); Triglycerides 115 mg/dL; Very Low Density Lipoprotein 23 mg/dL (5-40)
[2022-09-25 08:07] LABS: PTHIN 31.4 pg/mL (18.4-80.1)
== END | disposition home or self-care (01) ==
LOC: MFPLAB 15:25
PROVIDERS: PCP Family Medicine; Visit Provider Family Medicine
DX: I12.9 Hypertensive chronic kidney disease with stage 1 through stage 4 chronic kidney disease, or unspecified chronic kidney disease (principal); N18.30 Chronic kidney disease, stage 3 unspecified; Z85.46 Personal history of malignant neoplasm of prostate
CPT/HCPCS: 36415; 80053; 80061; 81001; 82570; 83970; 84100; 84153; 84156; 84443; 85025

== ENCOUNTER → 2022-10-23 | Outpatient (CLI) | payer MEDICARE, SELFPAY ==
--- NOTE | 2022-10-23 09:00 | RAD_ITS ---
INDICATION: neck pain EXAMINATION/TECHNIQUE: X-RAY - XR Spine Cervical 2 or 3 Views COMPARISON: FINDINGS: VERTEBRAE: Preserved vertebral body height. No fracture. No spondylolisthesis. There is loss of normally expected cervical lordosis. No significant facet arthropathy. DISCS: There is prominent disc space narrowing at C5/6. Osteophyte formation is noted at C4/5 and C5/6. NECK SOFT TISSUES: No prevertebral soft tissue widening. LUNG APICES: Clear. RAD/Cerv Spine 2 or 3 Views IMPRESSION: Degenerative changes. Electronically Signed: Etienne Tineo, at 9:51 EDT ,
== END | disposition home or self-care (01) ==
LOC: MTRAD 08:56
PROVIDERS: PCP Family Medicine; Visit Provider Psychiatry & Neurology Neurology
DX: M54.2 Cervicalgia (principal)
CPT/HCPCS: 72040

== ENCOUNTER → 2023-03-06 | Outpatient (CLI) | payer MEDICARE, SELFPAY ==
[2023-03-06 10:17] LABS: Bacteria 0 SEEN /hpf (None Seen); Mucous, Urine 0 SEEN /hpf (<or=2+); Red Blood Cells-Urine 0 SEEN /hpf (0-5); Squamous Epithelial Cells - UA 0 SEEN /hpf (0-5); White Blood Cells 0 SEEN /hpf (0-5)
[2023-03-06 12:12] LABS: Color, Urine Yellow (Yellow); Glucose, Dipstick Normal (Normal); Ketone-Dipstick Negative (Negative); Leukocyte Esterase-Dipstick Negative /ul (Negative); Nitrite-Dipstick Negative (Negative); Occult Blood-Urine Negative /ul (Negative); Protein-Dipstick Negative (Negative); Urine Bilirubin Dipstick Negative (Negative); Urine Clarity Clear (Clear); Urine Urobilinogen Normal (Normal); Urine pH 6.5 (5.0 - 8.0)
[2023-03-06 12:29] LABS: Absolute Lymphocyte Count 1.66 X10^3/uL (0.83-4.51); Absolute Neutrophil Count 3.3 X10^3/uL (2.0-7.7); Basophil# 0.04 X10^3/uL; Basophil% 0.7 % (0-1); Eosinophil# 0.07 X10^3/uL; Eosinophils% 1.3 % (0-5); Hematocrit 41.9 % (40-54); Hemoglobin 13.2 g/dL (13.0-16.5); Lymphocyte # 1.66 X10^3/ul (0.83-4.51); Lymphocyte % 30.7 % (19-41); Mean Corp Hgb Conc 31.5 g/dL (32-36); Mean Corpuscular Hgb 28.4 pg (27.0-32.0); Mean Corpuscular Volume 90.3 fL (80-94); Mean Platelet Vol. 10.2 fl (6.2-12.0); Monocyte# 0.35 X10^3/uL; Monocyte% 6.5 % (0-10); NRBC Flagged by Analyzer 0 % (0-5); Neutrophil # 3.28 X10^3/uL (2.7-7.7); Neutrophil % 60.6 % (47-70); Platelet Count 212 K/mm3 (150-450); RBC Distribution Width CV 13.4 % (11.6-14.6); RBC Distribution Width SD 44.3 fl (35.1-43.9); Red Blood Count 4.64 M/mm3 (4.6-6.2); White Blood Count 5.4 K/mm3 (4.4-11.0)
[2023-03-06 13:06] LABS: PTHIN 57.3 pg/mL (18.4-80.1)
[2023-03-06 13:09] LABS: Vitamin D,25 Hydroxy 72.6 ng/mL
[2023-03-06 13:28] LABS: ALB/GLOB Ratio 1.1 RATIO (0.9-2.4); AST(SGOT) 24 U/L (15-37); Alanine Aminotransfer ALT/SGPT 34 U/L (16-61); Albumin, Serum 3.6 g/dL (3.2-5.0); Alkaline Phosphatase 122 U/L (45-117); Anion Gap 5 (5-15); BUN 14 mg/dL (7-18); BUN/Creat Ratio 12.5 RATIO (10-20); Calcium,Total 8.4 mg/dL (8.5-10.1); Chloride 109 mmol/L (98-107); Cholesterol 130 mg/dL (200); Creatinine, Serum 1.12 mg/dL (0.70-1.30); EST Glomerular Filtration Rate 68 mL/min (>60); Est Glom Filt Rate - Afr Amer 82 mL/min (>60); Globulin 3.3 g/dL (2.2-4.2); Glucose 97 mg/dL (74-106); High Density Lipoprotein 52 mg/dL; Phosphorus 3.3 mg/dL (2.5-4.9); Potassium 4.4 mmol/L (3.5-5.1); Protein, Total 6.9 g/dL (6.4-8.2); Sodium Level 139 mmol/L (136-145); Thyroid Stim Hormone (TSH) 1.43 uIU/mL (0.358-3.74); Triglycerides 98 mg/dL; Very Low Density Lipoprotein 20 mg/dL (5-40)
== END | disposition home or self-care (01) ==
LOC: MFPLAB 10:15
PROVIDERS: PCP Family Medicine; Visit Provider Family Medicine
DX: I12.9 Hypertensive chronic kidney disease with stage 1 through stage 4 chronic kidney disease, or unspecified chronic kidney disease (principal); N18.30 Chronic kidney disease, stage 3 unspecified; R73.09 Other abnormal glucose
CPT/HCPCS: 36415; 80053; 80061; 81001; 82306; 83036; 83970; 84100; 84443; 85025

== ENCOUNTER → 2023-03-27 | Outpatient (CLI) | payer MEDICARE, SELFPAY ==
[2023-03-27 12:08] LABS: Erythrocyte Sedimentation Rate 10 mm/hr (0-20)
[2023-03-27 12:10] LABS: Hematocrit 42.4 % (40-54); Hemoglobin 13.5 g/dL (13.0-16.5); Mean Corp Hgb Conc 31.8 g/dL (32-36); Mean Corpuscular Hgb 28.2 pg (27.0-32.0); Mean Corpuscular Volume 88.5 fL (80-94); Mean Platelet Vol. 10.2 fl (6.2-12.0); Platelet Count 175 K/mm3 (150-450); RBC Distribution Width CV 13.2 % (11.6-14.6); RBC Distribution Width SD 43.1 fl (35.1-43.9); Red Blood Count 4.79 M/mm3 (4.6-6.2); White Blood Count 10.2 K/mm3 (4.4-11.0)
[2023-03-27 12:11] LABS: ALB/GLOB Ratio 1.1 RATIO (0.9-2.4); AST(SGOT) 22 U/L (15-37); Alanine Aminotransfer ALT/SGPT 33 U/L (16-61); Albumin, Serum 3.6 g/dL (3.2-5.0); Alkaline Phosphatase 129 U/L (45-117); Anion Gap 5 (5-15); BUN 14 mg/dL (7-18); BUN/Creat Ratio 12.3 RATIO (10-20); Calcium,Total 8.5 mg/dL (8.5-10.1); Chloride 106 mmol/L (98-107); Creatinine, Serum 1.14 mg/dL (0.70-1.30); EST Glomerular Filtration Rate 67 mL/min (>60); Est Glom Filt Rate - Afr Amer 81 mL/min (>60); Globulin 3.4 g/dL (2.2-4.2); Glucose 98 mg/dL (74-106); Potassium 4.8 mmol/L (3.5-5.1); Sodium Level 137 mmol/L (136-145)
== END | disposition home or self-care (01) ==
LOC: MFPLAB 10:21
PROVIDERS: PCP Family Medicine; Visit Provider Family Medicine
DX: K57.92 Diverticulitis of intestine, part unspecified, without perforation or abscess without bleeding (principal)
CPT/HCPCS: 36415; 80053; 85027; 85652; 86140

== ENCOUNTER → 2023-04-08 | Outpatient (CLI) | payer MEDICARE, SELFPAY ==
--- NOTE | 2023-04-08 16:47 | CT_ITS ---
STUDY: CT ABDOMEN AND PELVIS WITH CONTRAST REASON FOR EXAM: Male, 73 years old. acute diverticulitis RADIATION DOSAGE (If Supplied By Facility): CTDIvol = ( 14.49 ) mGy, DLP = ( 659.05 ) mGycm TECHNIQUE: Transaxial images were obtained from the dome of the diaphragm to the symphysis pubis without oral contrast. Oral and amp;amp; IV Readi-CAT and amp;amp; 100mL Isovue-300 was administered. Sagittal and coronal images were reconstructed. Individualized dose optimization techniques were used for this CT. COMPARISON: 04/29/2019. FINDINGS: Mild bilateral lower lobe atelectasis. Normal cardiac size with coronary artery calcifications. Normal liver. Normal gallbladder and extrahepatic biliary system. There are multiple benign calcified granulomata of the spleen. Normal pancreas. Normal bilateral adrenal glands. Normal right kidney. Left lower renal pole simple cyst measuring 6.8 mm, otherwise normal left kidney. Normal visualized stomach. Normal small intestine. Mild scattered diverticulosis, otherwise colon are unremarkable. The appendix is visualized and appears normal. There is diffuse atherosclerotic calcification of the abdominal aorta, without a demonstrated aneurysm. Normal inferior vena cava. Normal retroperitoneum. Normal urinary bladder. Normal abdominal wall. There are diffuse degenerative changes of the visualized lumbar spine. CT/Abdomen/Pelvis WITH Contrast IMPRESSION: Scattered diverticulosis, more so through the descending portion and sigmoid with no focal signs of diverticulitis. No acute appendicitis or bowel obstruction. Splenic granulomata consistent with sequela of prior granulomatous infection. Is 0.8 mm simple cyst within the left kidney, no further follow-up imaging recommended. Remainder of abdominal viscera are unremarkable. Electronically Signed: Ambika Sutherland MD at 21:32 EST ,
--- OUTSIDE RECORDS SUMMARY | 2023-04-08 17:09 | XMS RPT_ITS | CCD ---
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 [facility] Work Phone: Start: 04-29-2013 End: 04-29-2013 Coagulation factor induced.INR assay in platelet poor plasma *PT/INR [facility] Work Phone: Start: 04-29-2013 End: 04-29-2013 BUDDER BUDDER [facility] Work Phone: Start: 04-29-2013 End: 04-29-2013 Electrocardiogram, complete EKG (In office) [facility] Work Phone: Start: 04-29-2013 End: 04-29-2013 Follow Up Appt 3 months Follow Up Appt 3 months [facility] Work Phone: Start: 04-29-2013 End: 04-29-2013 Follow Up Appt Other Follow Up Appt Other [facility] Work Phone: Start: 04-29-2013 End: 04-29-2013 Left Heart Cath Left Heart Cath [facility] Work Phone: Start: 04-29-2013 End: 04-29-2013 Nuclear stress test -exercise Nuclear stress test -exercise [facility] Work Phone: Start: 2013 PNEUMOVAX AGE 65 AND OVER WITH 5YR LOOKBACK (#1) PNEUMOVAX AGE 65 AND OVER WITH 5YR LOOKBACK (#1) [facility] Start: 07-04-2011 End: 07-04-2011 Follow Up Appt 6 months Follow Up Appt 6 months [facility] Work Phone: Start: 07-04-2011 End: 07-04-2011 Follow Up Appt 6 months Follow Up Appt 6 months [facility] Work Phone: Start: 02-19-2011 End: 04-29-2013 24 hour holter monitor 24 hour holter monitor [facility] Work Phone: Start: 02-19-2011 End: 04-29-2013 24 hour holter monitor 24 hour holter monitor [facility] Work Phone: Start: 1998 Influenza vaccination LUNG CANCER SCREENING [facility] Start: 1998 SHINGRIX VACCINE (1 of 2) SHINGRIX VACCINE (1 of 2) [facility] Start: 1993 COLOGUARD (FIT-DNA) COLOGUARD (FIT-DNA) [facility] Start: [address] [facility] Start: 1993 FECAL OCCULT BLOOD FECAL OCCULT BLOOD [facility] Start: [address] [facility] Start: 1983 LIPID SCREEN LIPID SCREEN [facility] Start: 1967 SHINGRIX VACCINE (1 of 2) SHINGRIX VACCINE (1 of 2) [facility] Start: 1967 Urine microalbumin profile DTAP,TDAP,TD (1 - Tdap) [facility] Start: 1966 ANNUAL PCP TEAM CHRONIC DISEASE VISIT ANNUAL PCP TEAM CHRONIC DISEASE VISIT [facility] Start: 1966 BP CONTROLLED (<130/80) BP CONTROLLED (<130/80) [facility] Start: 1966 HEPATITIS C SCREENING HEPATITIS C SCREENING [facility] Start: 1960 Adult depression screening assessment DEPRESSION SCREENING [facility] Start: 1954 PNEUMOCOCCAL: 65+ (1 - PCV) PNEUMOCOCCAL: 65+ (1 - PCV) [facility] Start: 1953 COVID-19 VACCINE (1) COVID-19 VACCINE (1) [facility] Start: 1948 ABDOMINAL AORTIC ANEURYSM SCREENING ABDOMINAL AORTIC ANEURYSM SCREENING [facility] Patient Education Medications [facility] Work Phone: [facility] Payers Date Payer Category Payer Medicare MMO MEDICARE MMO MEDADVANTAGE HMO [id number] 2018-Present [phone] [address] [place] [address] O [id number] 2018 Medicare MMO MEDICARE MMO MEDADVANTAGE HMO [id number] 2018-Present [phone] [address] [place] [address] O [id number] 2018 Unknown [id number] Social History Date Type Detail Facility Start: 09-09-2018 Tobacco smoking stat [facility] Smokes tobacco daily [facility] History of tobacco use Cigarette Smoker [facility] Start: 06-12-2020 End: 02-25-2022 Alcohol intake Current non-drinker of alcohol (finding) [facility] Start: 06-12-2020 End: 02-25-[address] [facility] Start: 09-09-2018 [facility] Start: 1950 Sex Assigned At Not on file [facility] Start: 07-22-2021 End: 08-01-2021 Exposure to SARS-CoV-2 (event) Unable to assess [facility] Work Phone: Start: 08-24-2021 End: 01-21-2022 Exposure to SARS-CoV-2 (event) Not sure [facility] Start: 09-09-2018 Tobacco use and exposure Smokeless tobacco non-user [facility] Clinical Notes 07-29-2021 to 04-18-2022 Telephone Encounter - Jennifer Garcia - 04/18/2022 2:27 PM ESTTelephone Encounter - [address] - 04/18/2022 1:51 PM ESTTelephone Encounter - Jennifer Garcia - 04/18/2022 11:45 AM ESTPatient Instructions Note Date & Type Note Facility 04-18-2022 Miscellaneous Notes Sent direct message to Dr. Neal asking for someone at Main to print off a written Rx so he can sign and have someone fax it to number below at OR Jennifer Garcia April 18, 2022 2:27 PM [facility] called in requesting we fax the prescription for Xiidra to fax # [phone]. Please advise documented in this encounter [facility] 04-18-2022 Miscellaneous Notes Second attempt faxed to number listed below Jennifer Garcia April 18, 2022 11:45 AM Patient states [facility] never [facility] paperwork. Patient requests that we fax information to [phone] Optometry Department. Faxed letter per request to [facility] for review, Jennifer Garcia April 18, 2022 10:39 AM Patient called about status of message. Patient is getting frustrated that he is not hearing from office. Will create letter advising why patient should use Xiidra. Once complete, will call phone number below to get fax number Jennifer Garcia April 14, 2022 4:17 PM Patient called in and stated to get the [facility] to cover Xiidra, our office needs to send to the [facility] why the other medication is not working and send the name of the other medication the doctor wants him to use. [facility] [phone] Provider dimas Santizo Xiidra is the alternative if Restasis is not working. Patient to brain picker prescription and start medication. Spoke to patient, he would like this to go through the [facility]-patient to call the [facility] and let our office know the process to get it covered via [facility]. Encounter sent 03/04/2022 Pt calling back. He would like a follow up call regarding his medication. States Kylie Clark is calling him stating there is a prescription for Xiidra for him to brain picker. He has not checked cost but said the last time he heard from someone he was told not to pick that up yet. If he is to pick it up he may have to have it sent to the [facility] if it costs too much. States that there is no change from what he reported about the Restasis not working. He is keeping refrigerated and he is also using artificial tears as well as baby shampoo scrubs with warm wet rags. Spoke to alisa in the [place] office, she advised still waiting on the medication issue to be addressed and the refill of Xiidra to be sent. documented in this encounter [facility] 03-25-2022 Miscellaneous Notes Phone encounter present that patient's symptoms are not being helped with compresses and artifical tears, is requesting next step. Per note in phone encounter pending prescription for Xiidra to Dr. Neal for approval if appropriate. Marci Nielsen RN March 25, 2022 3:33 PM documented in this encounter [facility] 03-08-2022 Miscellaneous Notes Sometimes chilling the drops, or using them [id number] can help. If still very uncomfortable despite trying that, we can look into xiidra instead Patient called stating drops are causing his eyes to burn. Requesting to speak to clinical. documented in this encounter [facility] 02-25-2022 Note HNO ID: [id number] Author: Troy Neal MD Service: ? Author Type: Physician Type: Progress Notes Filed: 02/25/2022 10:43 AM Note Text: Assessment and Plan 1. Dry eyes, bilateral -main complaint is Foreign body sensation left eye > right eye -in setting of lid retraction/ptosis/dermatochalasi s with resulting decreased blink -worse when sleeps on left side, better when pulls lid off surface of eye -has tried multiple drops and ointment for years with no relief -not interested in doxy / pills 2. Pseudophakia 3. Right posterior capsular opacification -stable, early visual significance 4. Early dry stage nonexudative age-related macular degeneration of both eyes 5. Epiretinal membrane left eye -impacting vision left eye 1 Plan: -will check TSI --> negative -saw Dr. Garduno --> no eyelid pathology -early chalazion today that may explain eyelid tenderness -hot compresses twice a day both eyes -restasis twice a day both eyes -artificial tears three times a day both eyes -will give restasis change to work. Back to me in 3 months. To consider suggesting plug trial left eye again vs tyrvaya I have confirmed and edited as necessary the relevant ophthalmic history, ROS, and the neuro exam findings as obtained by others. I have seen and examined Selene Fuentes. I have discussed the case and the management of this patient's care with the Resident/Fellow, if applicable. I also have reviewed and agree with the assessment and plan as stated above and agree with all of its relevant components. Troy Neal MD [facility] 02-25-2022 History of Presen t illness Narrative Assessment and Plan 1. Dry eyes, bilateral -main complaint is Foreign body sensation left eye > right eye -in setting of lid retraction/ptosis/dermatochalasi s with resulting decreased blink -worse when sleeps on left side, better when pulls lid off surface of eye -has tried multiple drops and ointment for years with no relief -not interested in doxy / pills 2. Pseudophakia 3. Right posterior capsular opacification -stable, early visual significance 4. Early dry stage nonexudative age-related macular degeneration of both eyes 5. Epiretinal membrane left eye -impacting vision left eye 1 Plan: -will check TSI --> negative -saw Dr. Garduno --> no eyelid pathology -early chalazion today that may explain eyelid tenderness -hot compresses twice a day both eyes -restasis twice a day both eyes -artificial tears three times a day both eyes -will give restasis change to work. Back to me in 3 months. To consider suggesting plug trial left eye again vs tyrvaya I have confirmed and edited as necessary the relevant ophthalmic history, ROS, and the neuro exam findings as obtained by others. I have seen and examined Selene Burns Angélicalatesha. I have discussed the case and the management of this patient's care with the Resident/Fellow, if applicable. I also have reviewed and agree with the assessment and plan as stated above and agree with all of its relevant components. Troy Neal MD documented in this encounter [facility] 01-21-2022 Note HNO ID: [id number] Author: Ever Garduno MD Service: ? Author Type: Physician Type: Progress Notes Filed: 01/21/2022 12:20 PM Note Text: Patient noticed his left eye has been feeling irritated, and he thinks its due to his droopy eyelid. This has been going on for about 3 year, but In this past year he thinks his right eye lid is now drooping. States he has been given different ointment to help the discomfort which doesn't seem to help his left eye. Patient thinks his vision is dark like he has a shade over them that clears up if he tried to lift his lids. And he also has a hard time adjusting in different light settings. Current eye medications: AFTs both eyes four times a day A/P: Left eye Foreign body sensation x 2019 Thinks maybe eyelid causing Foreign body sensation Saw a doctor in [place] and they said maybe it was his eyelid causing issues Tried ointments didn't help H/o intraocular lens both eyes pre 2017 No eyelid surgeries in past Referred by Dr. Ashley SOLER 09/11/21 within normal limits No double vision No issues eating/swallowing No H/o contact lens use Exam: Brow ptosis No skin on lashes No lag both eyes AL: 31, 30 LF: 15, 15 Margin to reflex distance 1: 6,6 Ptosis visual field diff: 6, 16 Pupils symmetric Tr edema left upper lid, no erythema Everted the lid, no lesions seen Sle: Cornea clear both eyes No Superficial punctate keratopathy (SPK) No conjunctival injection both eyes No a/c reaction both eyes Iris within normal limits both eyes Decreased tear break up time Meibomian gland dysfunction, especially left upper lid laterally Meibomian gland dysfunction both eyes mikaela left upper lid Also decresed tear break up time Discussed likely patient has pain from dry eye No lesions seen on exam today to account for pain; no concretions No need for oculoplastics intervention at this time (no skin over lashes, mild ptosis left upper lid; mild lower lid laxity both eyes) Recc Warm compresses to affected lid(s) 15 min twice daily. (Can try Dipak mask, found on [employer] or at drug stores), followed by lid scrubs twice daily with dilute baby shampoo. Recc art tears four times a day both eyes - Start taking Restasis (or xiidra) 1 drop to both eyes 2 times a day. Restasis may take 3 months to start working effectively. It is normal for the eye drop to burn after instillation of the drop. This will typically improve by the end of the first month. F/u Dr. Neal/Dr. Perrin for dry eye mgmt The documentation for this note was completed by Yesika Calhoun APRN, CNP acting as a scribe for Ever Garduno MD. 01/21/2022 12:15 PM. I have confirmed and edited as necessary the relevant ophthalmic history, ROS, and the neuro exam findings as obtained by others. I have seen and examined Selene Fuentes. I have discussed the case and the management of this patient's care with the Resident/Fellow, if applicable. I also have reviewed and agree with the assessment and plan as stated above and agree with all of its relevant components. I, Ever Garduno MD, personally performed the services described in this documentation. All medical record entries made by the scribe were at my direction and in my presence. I have reviewed the chart and discharge instructions (if applicable) and agree that the record reflects my personal performance and is accurate and complete. Electronically Signed: Ever Garduno MD, January 21, 2022 12:15 PM. [facility] 01-21-2022 Instructions Ever Garduno MD - 01/21/2022 12:18 PM EDT Meibomian gland dysfunction both eyes mikaela left upper lid Also decresed tear break up time Discussed likely patient has pain from dry eye No lesions seen on exam today to account for pain; no concretions No need for oculoplastics intervention at this time (no skin over lashes, mild ptosis left upper lid; mild lower lid laxity both eyes) Recc Warm compresses to affected lid(s) 15 min twice daily. (Can try Dipak mask, found on [employer] or at drug stores), followed by lid scrubs twice daily with dilute baby shampoo. Recc art tears four times a day both eyes - Start taking Restasis (or xiidra) 1 drop to both eyes 2 times a day. Restasis may take 3 months to start working effectively. It is normal for the eye drop to burn after instillation of the drop. This will typically improve by the end of the first month. F/u Dr. Neal/Dr. Perrin for dry eye mgmt documented in this encounter [facility] 01-21-2022 History of Presen t illness Narrative Patient noticed his left eye has been feeling irritated, and he thinks its due to his droopy eyelid. This has been going on for about 3 year, but In this past year he thinks his right eye lid is now drooping. States he has been given different ointment to help the discomfort which doesn't seem to help his left eye. Patient thinks his vision is dark like he has a shade over them that clears up if he tried to lift his lids. And he also has a hard time adjusting in different light settings. Current eye medications: AFTs both eyes four times a day A/P: Left eye Foreign body sensation x 2019 Thinks maybe eyelid causing Foreign body sensation Saw a doctor in [place] and they said maybe it was his eyelid causing issues Tried ointments didn't help H/o intraocular lens both eyes pre 2017 No eyelid surgeries in past Referred by Dr. Neal TSJm 09/11/21 within normal limits No double vision No issues eating/swallowing No H/o contact lens use Exam: Brow ptosis No skin on lashes No lag both eyes AL: 31, 30 LF: 15, 15 Margin to reflex distance 1: 6,6 Ptosis visual field diff: 6, 16 Pupils symmetric Tr edema left upper lid, no erythema Everted the lid, no lesions seen Sle: Cornea clear both eyes No Superficial punctate keratopathy (SPK) No conjunctival injection both eyes No a/c reaction both eyes Iris within normal limits both eyes Decreased tear break up time Meibomian gland dysfunction, especially left upper lid laterally Meibomian gland dysfunction both eyes mikaela left upper lid Also decresed tear break up time Discussed likely patient has pain from dry eye No lesions seen on exam today to account for pain; no concretions No need for oculoplastics intervention at this time (no skin over lashes, mild ptosis left upper lid; mild lower lid laxity both eyes) Recc Warm compresses to affected lid(s) 15 min twice daily. (Can try Dipak mask, found on [employer] or at drug stores), followed by lid scrubs twice daily with dilute baby shampoo. Recc art tears four times a day both eyes - Start taking Restasis (or xiidra) 1 drop to both eyes 2 times a day. Restasis may take 3 months to start working effectively. It is normal for the eye drop to burn after instillation of the drop. This will typically improve by the end of the first month. F/u Dr. Neal/Dr. Perrin for dry eye mgmt The documentation for this note was completed by Yesika Calhoun APRN, CNP acting as a scribe for Ever Garduno MD. 01/21/2022 12:15 PM. I have confirmed and edited as necessary the relevant ophthalmic history, ROS, and the neuro exam findings as obtained by others. I have seen and examined Selene Fuentes. I have discussed the case and the management of this patient's care with the Resident/Fellow, if applicable. I also have reviewed and agree with the assessment and plan as stated above and agree with all of its relevant components. I, Ever Garduno MD, personally performed the services described in this documentation. All medical record entries made by the scribe were at my direction and in my presence. I have reviewed the chart and discharge instructions (if applicable) and agree that the record reflects my personal performance and is accurate and complete. Electronically Signed: Ever Garduno MD, January 21, 2022 12:15 PM. documented in this encounter [facility] 09-18-2021 Miscellaneous Notes T/C to pt gave results provided. Pt voices understanding. Pt calling for results of yesterdays blood work.Please advise. Component Latest Ref Rng & Units 09/11/2021 TSI Qualitative Negative Negative TSI <0.55 IU/L <0.10 [address] encounter [facility] 09-03-2021 Note HNO ID: [id number] Author: Troy Neal MD Service: ? Author Type: Physician Type: Progress Notes Filed: 09/03/2021 10:13 AM Note Text: Assessment and Plan 1. Dry eyes, bilateral -main complaint is Foreign body sensation left eye > right eye -in setting of lid retraction/ptosis/dermatochalasi s with resulting decreased blink -has tried multiple drops and ointment for years with no relief 2. Pseudophakia 3. Right posterior capsular opacification -stable, early visual significance 4. Early dry stage nonexudative age-related macular degeneration of both eyes 5. Epiretinal membrane left eye -impacting vision left eye 1 Plan: -will check TSH -not interested in trying plugs -would like to see Dr. Garduno for discussion of options --> will set up -me afterwards. To consider retinal eval for vision changes left eye if vision does not improve with ocular surface optimization and patient remains bothered I have confirmed and edited as necessary the relevant ophthalmic history, ROS, and the neuro exam findings as obtained by others. I have seen and examined Selene Fuentes. I have discussed the case and the management of this patient's care with the Resident/Fellow, if applicable. I also have reviewed and agree with the assessment and plan as stated above and agree with all of its relevant components. rToy Neal MD September 03, 2021 10:00 AM [facility] 07-29-2021 Miscellaneous Notes Spoke to patient, will call and make an appointment with Gastroenterology, per Dr Linn recommendation. Patient has not been evaluated by our office in over a year, therefore a refill would not be appropriate. Per review of documentation in [facility], phone encounter from 02/15/[address] Linn had recommended patient see Gastroenterology for persistent abdominal complaints, unless patient wanting to pursue endoscopy specifically with Dr. Linn. Requesting a refill on his sucralfate 1 gram MARLENYD Kylie saucedo documented in this encounter [facility] Dry eye syndrome of bilateral lacrimal glands- Primary Tear film insufficiency, unspecified Meibomian gland dysfunction (MGD) of upper and lower lids of both eyes Pseudophakia Lens replaced by other means Early dry stage nonexudative age-related macular degeneration of both eyes documented in this encounter [facility] Advance Directives No Advanced Directives Records FoundDocuments on File Type Date Recorded Patient Health Economist Expl anation Advance Directive(s) 10/27/2019 9:53 AM Advance Directive(s) 10/21/2019 9:24 AM Advance Directive(s) 04/29/2016 1:33 PM Advance Directive(s) 03/11/2016 1:09 PM Summary Purpose Family History No Family History Records Found Additional Source Comments Source Comments (unrecognize d section and content) In the event this informatio n is protected by the Federal Confidentiality of Alcohol and Drug Abuse Patient Records regulations: The Federal rules restrict any use of the information to criminally investigate or prosecute any alcohol or drug abuse patient.[facility] the event this information is protected by the Federal Confidentiality of Alcohol and Drug Abuse Patient Records regulations: The Federal rules restrict any use of the information to criminally investigate or prosecute any alcohol or drug abuse patient.[facility] the event this information is protected by the Federal Confidentiality of Alcohol and Drug Abuse Patient Records regulations: The Federal rules restrict any use of the information to criminally investigate or prosecute any alcohol or drug abuse patient.[facility] the event this information is protected by the Federal Confidentiality of Alcohol and Drug Abuse Patient Records regulations: The Federal rules restrict any use of the information to criminally investigate or prosecute any alcohol or drug abuse patient.[facility] the event this information is protected by the Federal Confidentiality of Alcohol and Drug Abuse Patient Records regulations: The Federal rules restrict any use of the information to criminally investigate or prosecute any alcohol or drug abuse patient.[facility] the event this information is protected by the Federal Confidentiality of Alcohol and Drug Abuse Patient Records regulations: The Federal rules restrict any use of the information to criminally investigate or prosecute any alcohol or drug abuse patient.[facility] the event this information is protected by the Federal Confidentiality of Alcohol and Drug Abuse Patient Records regulations: The Federal rules restrict any use of the information to criminally investigate or prosecute any alcohol or drug abuse patient.[facility] the event this information is protected by the Federal Confidentiality of Alcohol and Drug Abuse Patient Records regulations: The Federal rules restrict any use of the information to criminally investigate or prosecute any alcohol or drug abuse patient.[facility] the event this information is protected by the Federal Confidentiality of Alcohol and Drug Abuse Patient Records regulations: The Federal rules restrict any use of the information to criminally investigate or prosecute any alcohol or drug abuse patient.[facility] Reason for Visit (unrecogniz ed section and content) Reason Comments Refill Request Reason Comments Results Reason Comments Dermatochalasis Evaluation Reason Comments Dry Eye Syndrome Follow Up Bilateral Epiretinal Membrane Follow Up Left eye Nonexudative Macular Degeneration Follow Up Early Stage, Bilateral Reason Comments Medication Problem Reason Onset Date Comments Refill Request 03/25/2022 Xiidra Reason Comments Medication Problem Refill Request Reason Comments Medication Follow-up Care Teams (unrecognized sec tion and content) Miniature Set Constructor Relationship Specialty Start Date End Date Selene Das [address] [place] [id number] PCP - General Family Practice 02/24/20 Miniature Set Constructor Relationship Specialty Start Date End Date Selene Das [address] [place] [address] PCP - General Family Practice 02/24/20 Miniature Set Constructor Relationship Specialty Start Date End Date Selene Das [address] [place] [address] PCP - General Family Medicine 02/24/20 Miniature Set Constructor Relationship Specialty Start Date End Date Selene Das [address] 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 This clinical summary was aggregated from multiple sources. Caution should be exercised in using it in the provision of clinical care. This summary normalizes information from multiple sources, and as a consequence, information in this document may materially change the coding, format and clinical context of patient data. In addition, data may be omitted in some cases. CLINICAL DECISIONS SHOULD BE BASED ON THE PRIMARY CLINICAL RECORDS. [employer] provides no warranty or guarantee of the accuracy or completeness of information in this document.
== END | disposition home or self-care (01) ==
LOC: CT 16:40
PROVIDERS: PCP Family Medicine; Referring Provider Family Medicine; Visit Provider Family Medicine
DX: K57.92 Diverticulitis of intestine, part unspecified, without perforation or abscess without bleeding (principal)
CPT/HCPCS: 74177; Q9967

== ENCOUNTER → 2023-05-05 | Outpatient (CLI) | payer MEDICARE, SELFPAY ==
--- NOTE | 2023-05-05 09:50 | CDU_ITS ---
Reason For Study: History of stroke, Carotid stenosis Rt. Velocities/BP Lt. Velocities/BP Prox CCA 79.6/18.2 cm/sec. Prox CCA 117/28.6 cm/sec. Mid CCA 78.7/13.5 cm/sec. Mid CCA 96.1/23.7 cm/sec. Dist CCA 86.3/22 cm/sec. Dist CCA 83.9/24.9 cm/sec. Prox ICA 51.3/6.9 cm/sec. Prox ICA 74/15.1 cm/sec. Mid ICA 64.5/21.1 cm/sec. Mid ICA 70.4/22.5 cm/sec. Dist ICA 88.1/31.5 cm/sec. Dist ICA 70/22.3 cm/sec. Rt. ICA/CCA = 1.11. Lt. ICA/CCA = 0.77. Prox ECA 85.3/10.7 cm/sec. Prox ECA 85.1/22.5 cm/sec. Rt. Vert. 41.3/11.6 cm/sec. Lt. Vert. 49.5/15.1 cm/sec. Right Extracranial There is heterogeneous, irregular atherosclerotic plaque noted in the right common carotid artery. There is heterogeneous, irregular atherosclerotic plaque noted in the right internal carotid artery. The right internal carotid artery is very tortuous. There is heterogeneous, irregular atherosclerotic plaque noted in the right external carotid artery. Antegrade flow is noted in the right vertebral artery. Left Extracranial There is intimal thickening but no significant atherosclerotic plaque noted in the left common carotid artery. There is heterogeneous, irregular atherosclerotic plaque noted in the left internal carotid artery. There is heterogeneous, irregular atherosclerotic plaque noted in the left external carotid artery. Antegrade flow is noted in the left vertebral artery. Procedure Carotid Duplex 50122. This is a Carotid Duplex examination using B-mode, color flow and specral Doppler. Exam performed in department. VL/Carotid Duplex Ultrasound Interpretation Summary Mild (<50%) stenosis right extracranial internal carotid. Mild (<50%) stenosis left extracranial internal carotid. Patent and antegrade vertebrals bilaterally. Ordering Physician: Law Strange Referring Physician: Vik Hudson Performed By: Daily Eubanks RVT
== END | disposition home or self-care (01) ==
PROVIDERS: PCP Family Medicine; Referring Provider Surgery Trauma Surgery; Visit Provider Surgery Trauma Surgery
DX: I65.29 Occlusion and stenosis of unspecified carotid artery (principal); Z86.73 Personal history of transient ischemic attack (TIA), and cerebral infarction without residual deficits
CPT/HCPCS: 93880

== ENCOUNTER → 2023-05-21 | Outpatient (CLI) | payer MEDICARE, SELFPAY ==
--- NOTE | 2023-05-21 07:40 | AAVD_ITS ---
Reason For Study: Abnormal Screening Aorta Measurements Aorta Doppler Measurements Proximal aorta measures1.99 x 1.98cm. in cross- Peak systolic flow velocities within the proximal sectional axis. aorta measure 57.8 cm/sec. Proximal aorta measures1.94cm. in longitudinal Peak systolic flow velocities within the mid aorta axis. measure 85.0 cm/sec. Mid aorta measures2.05 x 2.14cm. in cross- Peak systolic flow velocities within the distal sectional axis. aorta measure 92.8 cm/sec. Mid aorta measures2.07cm. in longitudinal axis. Distal aorta measures2.21 x 2.23cm. in cross- sectional axis. Distal aorta measures2.05cm. in longitudinal axis. Heterogenous irregular plaque noted throughout mid and distal AO. Left Iliac Artery Left iliac artery measures 1.02 x 1.00 cm. in the cross-sectional axis. Left iliac artery measures 1.04 cm. in the longitudinal axis. Peak systolic velocity in the left iliac artery measures 103.7 cm/sec. Right Iliac Artery Right iliac artery measures 1.05 x 1.10 cm. in the cross-sectional axis. Right iliac artery measures 1.09 cm. in the longitudinal axis. Peak systolic velocity in the right iliac artery measures 109.1 cm/sec. VL/Abd Aortic/IVC Duplex scan Interpretation Summary Aorta patent, normal caliber Bilateral iliac arteries patent, normal caliber. Ordering Physician: Lian Ocampo Referring Physician: Vik Hudson Performed By: Nilson Taylor RVScott
--- OUTSIDE RECORDS SUMMARY | 2023-05-21 07:42 | XMS RPT_ITS | CCD ---
Author Name Unknown Address [address] [place] [address] Organization [facility] Care Team Providers Care Film Coater Name Role Phone Sandra Ford Unavailable KARLENE Deng, Amara Carver Unavailable Unavailable [...] Unavailable TROY NEAL Referring Unavailable SELENE DAS [place] Primary Care UnavailTROY Abraham Referring Unavailable PIPPA [facility] UnavailTROY Abraham Attending Unavailable Allergies Allergy Classification Reported Allergen(s) Allergy Type Date of Onset Reaction(s) Facility (10 sources) atorvastatin drug allergy 1 Myalgias [facility] Work Phone: (10 sources) atorvastatin; Translations: [ATORVASTATIN CALCIUM] Drug Allergy 7 Intolerance [facility] (5 sources) Isosorbide Drug Allergy 06-25-201 2 Other: See Comments [facility] Medications Completed/Discontinued Medications Medication Drug Class(es) Dates [...] Coronary atherosclerosis; Translations: [Atherosclerotic heart disease of [place] coronary artery without angina pectoris] Onset: 07-17-2010 [...] (4 sources) Long-term drug therapy; Translations: [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) drug therapy] Onset: 07-17-2010 07-17-2010 Past [...] 07-17-2010 Episodic Other aftercare (6 sources) Other skilled nursing (current) drug therapy; Translations: [Other skilled nursing (current) drug therapy] Onset: 07-17-2010 07-17-2010 Episodic [...] 12-25-2016 14:15-0400 Heart rate 69 /min Sandra [facility] Work Phone: 12-25-2016 14:03-0400 BMI (Body Mass Index) 25.76 kg/m2 Sandra Saucedo [facility] Work Phone: 12-25-2016 14:03-0400 BP Diastolic 60 mm[Hg] Sandra Saucedo [facility] Work Phone: 12-25-2016 14:03-0400 BP Systolic 110 mm[Hg] Sandra Saucedo [facility] Work Phone: 12-25-2016 14:03-0400 Height 167.64 cm Sandra Saucedo [facility] Work Phone: 12-25-2016 14:03-0400 Pulse (Heart Rate) 80 /min Sandra [facility]ced[facility] Work Phone: 12-25-2016 14:03-0400 Respiratory Rate 20 /min Sandra Saucedo [facility] Work Phone: 12-25-2016 14:03-0400 Weight 72.39 kg Sandra Saucedo [facility] Work Phone: 07-11-2016 14:47-0400 BMI (Body Mass Index) 26.63 kg/m2 KARLENE [facility] Work Phone: 07-11-2016 14:47-0400 BP Diastolic 60 mm[Hg] KARLENE [facility] Work Phone: 07-11-2016 14:47-0400 BP Systolic 100 mm[Hg] KARLENE [facility] Work Phone: 07-11-2016 14:47-0400 Height 167.64 cm [facility] Work Phone: 07-11-2016 14:47-0400 Pulse (Heart Rate) 74 /min Amara Deng RN [facility] Work Phone: 07-11-2016 14:47-0400 Pulse Oximetry 98 % Amara Deng RN [facility] Work Phone: 07-11-2016 14:47-0400 Respiratory Rate 18 /min [facility] Work Phone: 07-11-2016 14:47-0400 Weight 74.84 kg KARLENE [facility] Work Phone: 11-06-2015 10:20-0400 BSA (Body Surface Area) 1.86 m2 KARLENE [facility] Work Phone: 05-24-2014 10:33-0500 Body Temperature 98.4 [degF] KARLENE [facility] Work Phone: 04-29-2013 11:30-0500 Heart rate 398 ms Sandra Ford [facility] Work Phone: Encounters Encounter Date Encounter Type Care Provider Facility Start: 04-18-2022 Telephone encounter Troy guerra MD Work Phone: [facility] Procedures Date Procedure Procedure Detail Performing Clinician Start: 01-21-2022 Visual field xm uni/ bi w/interp intermed exam Ever Garduno MD Work Phone: Start: 10-27-2019 Colonoscopy Ania HUTCHISON-C Work Phone: Start: 02-12-2017 End: 02-13-2017 Interrogation [...] Jaxson Arevalo MD Start: 11-06-2015 End: 11-06-2015 SCRAP IRON CUTTER Susan Zelaya PA-C Work Phone: Start: 11-06-2015 End: 04-30-2016 Ecg routine ecg w/least 12 lds w/i&r Susan Zelaya PA-C Work Phone: Start: 11-06-2015 End: 11-06-2015 Follow Up Appt 6 months Susan cottrell PA-C Work Phone: Start: 11-06-2015 End: 11-06-2015 SCRAP IRON CUTTER Susan Zelaya PA-C Work Phone: Start: 11-06-2015 [...] 05-24-2014 Documentation of current medications Giselle Carver Garcia Work Phone: Start: 05-24-2014 End: 05-24-2014 Documentation of current medications Giselle Carver Jose Work Phone: Start: 02-01-2014 End: 02-01-2014 SCRAP IRON CUTTER Susan Zelaya PA-C Work Phone: Start: 02-01-2014 [...] PA-C Work Phone: Start: 04-29-2013 End: 04-29-2013 SCRAP IRON CUTTER Susan Zelaya PA-C Work Phone: Start: 04-29-2013 [...] PA-C Work Phone: Start: 04-29-2013 End: 04-29-2013 SCRAP IRON CUTTER Susan Zelaya PA-C Work Phone: Start: 04-29-2013 End: 04-29-2013 Electrocardiogram, complete Susan Veloz PA-C Work Phone: Start: 04-29-2013 End: 04-29-2013 Follow Up Appt 3 months Susan cottrell PA-C Work Phone: Start: 04-29-2013 End: 04-29-2013 Follow Up Appt Other Susan kelely PA-C Work Phone: Start: 04-29-2013 End: 01-24-2014 [...] Activity Detail Author Start: 10-26-2029 Colonoscopy COLONOSCOPY [facility] Start: 10-26-2029 COLORECTAL CANCER SCREENING COLORECTAL CANCER SCREENING [facility] Start: 05-31-2023 DIABETES SCREEN DIABETES SCREEN [facility] Start: 04-06-2022 ADVANCE DIRECTIVE DISCUSSION ADVANCE DIRECTIVE DISCUSSION [facility] Start: 04-06-2022 DEPRESSION ASSESSMENT DEPRESSION ASSESSMENT [facility] Start: 12-05-2021 Influenza vaccination INFLUENZA (Season Ended) [facility] Start: 04-06-2021 ADVANCE DIRECTIVE DISCUSSION ADVANCE DIRECTIVE DISCUSSION [facility] Start: 04-06-2021 DEPRESSION ASSESSMENT DEPRESSION ASSESSMENT [facility] Start: 05-08-2020 LIPID SCREEN LIPID SCREEN [facility] Start: 06-26-2017 End: 06-26-2017 Appointment Appointment [facility] Work Phone: Start: 05-18-2017 End: 05-18-2017 Appointment Appointment [facility] Work Phone: Start: 02-12-2017 End: 02-13-2017 Follow Up Appt 3 months Follow Up Appt 3 months [facility] Work Phone: Start: 02-12-2017 End: 02-13-2017 Pacer Clinic [facility] Work Phone: Start: 02-12-2017 End: 02-12-2017 Appointment Appointment [facility] Work Phone: Start: 01-16-2017 End: 01-16-2017 Appointment Appointment [facility] Work Phone: Start: 01-16-2017 End: 01-16-2017 Appointment Appointment [facility] Work Phone: Start: 12-25-2016 End: 12-25-2016 Follow Up Appt 6 months Follow Up Appt 6 months [facility] Work Phone: Start: 12-25-2016 End: 12-25-2016 MMM MMM [facility] Work Phone: Start: 12-25-2016 End: 12-25-2016 Nuclear stress test -exercise Nuclear stress test -exercise [facility] Work Phone: Start: 12-25-2016 End: 12-25-2016 Follow Up Appt 6 months Follow Up Appt 6 months [facility] Work Phone: Start: 12-25-2016 End: 12-25-2016 MMM MMM [facility] Work Phone: Start: 12-25-2016 End: 12-25-2016 Nuclear stress test -exercise Nuclear stress test -exercise [facility] Work Phone: Start: 11-12-2016 End: 12-25-2016 Follow Up Appt 3 months Follow Up Appt 3 months [facility] Work Phone: Start: 11-12-2016 End: 12-25-2016 Pacer Clinic [facility] Work Phone: Start: 11-12-2016 End: 11-12-2016 Appointment Appointment [facility] Work Phone: Start: 11-12-2016 End: 12-25-2016 Follow Up Appt 3 months Follow Up Appt 3 months [facility] Work Phone: Start: 11-12-2016 End: 12-25-2016 Pacer Clinic [facility] Work Phone: Start: 07-11-2016 End: 07-15-2016 *BMP *BMP [facility] Work Phone: Start: 07-11-2016 End: 07-15-2016 CBC W Auto Differential panel - Blood *CBC without Diff [facility] Work Phone: Start: 07-11-2016 End: 07-11-2016 Follow Up Appt 6 months Follow Up Appt 6 months [facility] Work Phone: Start: 07-11-2016 End: 07-14-2016 Implantable Loop Recorder Implantable Loop Recorder [facility] Work Phone: Start: 07-11-2016 End: 07-11-2016 MMM MMM [facility] Work Phone: Start: 07-11-2016 End: 07-15-2016 *BMP *BMP [facility] Work Phone: Start: 07-11-2016 End: 07-15-2016 CBC W Auto Differential panel - Blood *CBC without Diff [facility] Work Phone: Start: 07-11-2016 End: 07-11-2016 Follow Up Appt 6 months Follow Up Appt 6 months [facility] Work Phone: Start: 07-11-2016 End: 07-14-2016 Implantable Loop Recorder Implantable Loop Recorder [facility] Work Phone: Start: 07-11-2016 End: 07-11-2016 MMM MMM [facility] Work Phone: Start: 11-06-2015 End: 11-06-2015 [facility] Work Phone: Start: 11-06-2015 End: 04-30-2016 Ecg routine ecg w/least 12 lds w/i&r EKG (In office) [facility] Work Phone: Start: 11-06-2015 End: 11-06-2015 Follow Up Appt 6 months Follow Up Appt 6 months [facility] Work Phone: Start: 11-06-2015 End: 11-06-2015 [facility] Work Phone: Start: 11-06-2015 End: 04-30-2016 Electrocardiogram, complete EKG (In office) [facility] Work Phone: Start: 11-06-2015 End: 11-06-2015 Follow Up Appt 6 months Follow Up Appt 6 months [facility] Work Phone: Start: 05-08-2015 End: 05-08-2015 Follow Up Appt 6 months Follow Up Appt 6 months [facility] Work Phone: Start: 05-08-2015 End: 05-08-2015 MMM MMM [facility] Work Phone: Start: 05-08-2015 End: 05-08-2015 Nuclear stress test -exercise Nuclear stress test -exercise [facility] Work Phone: Start: 05-08-2015 End: 05-08-2015 Follow Up Appt 6 months Follow Up Appt 6 months [facility] Work Phone: Start: 05-08-2015 End: 05-08-2015 MMM MMM [facility] Work Phone: Start: 05-08-2015 End: 05-08-2015 Nuclear stress test -exercise Nuclear stress test -exercise [facility] Work Phone: Start: 01-04-2015 End: 05-08-2015 *Hepatic Function Panel *Hepatic Function Panel [facility] Work Phone: Start: 01-04-2015 End: 05-08-2015 Lipid panel [AGGREGATE] *Lipid Profile CC PCP [facility] Work Phone: Start: 01-04-2015 End: 05-08-2015 *Hepatic Function Panel *Hepatic Function Panel [facility] Work Phone: Start: 01-04-2015 End: 05-08-2015 Lipid panel [AGGREGATE] *Lipid Profile CC PCP [facility] Work Phone: Start: 05-24-2014 End: 05-24-2014 Colonoscopy flx dx w/collj spec when pfrmd Colonoscopy [facility] Work Phone: Start: 05-24-2014 End: 05-24-2014 Diagnostic colonoscopy Colonoscopy [facility] Work Phone: Start: 02-01-2014 End: 02-01-2014 SCRAP IRON CUTTER SCRAP IRON CUTTER [facility] Work Phone: Start: 02-01-2014 End: 02-01-2014 Follow Up Appt 6 months Follow Up Appt 6 months [facility] Work Phone: Start: 02-01-2014 End: 02-01-2014 SCRAP IRON CUTTER SCRAP IRON CUTTER [facility] Work Phone: Start: 02-01-2014 End: 02-01-2014 Follow Up Appt 6 months Follow Up Appt 6 months [facility] Work Phone: Start: 07-29-2013 End: 07-29-2013 Follow Up Appt 6 months Follow Up Appt 6 months [facility] Work Phone: Start: 07-29-2013 End: 07-29-2013 MMM MMM [facility] Work Phone: Start: 07-29-2013 End: 07-29-2013 Follow Up Appt 6 months Follow Up Appt 6 months [facility] Work Phone: Start: 07-29-2013 End: 07-29-2013 MMM MMM [facility] Work Phone: Start: 04-29-2013 End: 04-29-2013 *BMP *BMP [facility] Work Phone: Start: 04-29-2013 End: 04-29-2013 aPTT *PTT-Partial Thromboplastin Time [facility] Work Phone: Start: 04-29-2013 End: 04-29-2013 CBC W Auto Differential panel - Blood *CBC without Diff [facility] Work Phone: Start: 04-29-2013 End: 01-24-2014 Chest x-ray X-Ray, Chest, PA & Lateral [facility] Work Phone: Start: 04-29-2013 End: 04-29-2013 SCRAP IRON CUTTER SCRAP IRON CUTTER [facility] Work Phone: Start: 04-29-2013 End: 04-29-2013 Ecg routine ecg w/least 12 lds w/i&r EKG (In office) [facility] Work Phone: Start: 04-29-2013 End: 04-29-2013 Follow Up Appt 3 months Follow Up Appt 3 months [facility] Work Phone: Start: 04-29-2013 End: 04-29-2013 Follow Up Appt Other Follow Up Appt Other [facility] Work Phone: Start: 04-29-2013 End: 04-29-2013 INR Coag RelTime (PPP) *PT/INR [facility] Work Phone: Start: 04-29-2013 End: 04-29-2013 Left Heart Cath Left Heart Cath [facility] Work Phone: Start: 04-29-2013 End: 04-29-2013 Nuclear stress test -exercise Nuclear stress test -exercise [facility] Work Phone: Start: 04-29-2013 End: 04-29-2013 *BMP *BMP [facility] Work Phone: Start: 04-29-2013 End: 04-29-2013 aPTT *PTT-Partial Thromboplastin Time [facility] Work Phone: Start: 04-29-2013 End: 04-29-2013 CBC W Auto Differential panel - Blood *CBC without Diff [facility] Work Phone: Start: 04-29-2013 End: 01-24-2014 Chest x-ray X-Ray, Chest, PA & Lateral [facility] Work Phone: Start: 04-29-2013 End: 04-29-2013 Coagulation factor induced.INR assay in platelet poor plasma *PT/INR [facility] Work Phone: Start: 04-29-2013 End: 04-29-2013 SCRAP IRON CUTTER SCRAP IRON CUTTER [facility] Work Phone: Start: 04-29-2013 End: 04-29-2013 Electrocardiogram, complete EKG (In office) [facility] Work Phone: Start: 04-29-2013 End: 04-29-2013 Follow Up Appt 3 months Follow Up Appt 3 months [facility] Work Phone: Start: 04-29-2013 End: 04-29-2013 Follow Up Appt Other Follow Up Appt Other [facility] Work Phone: Start: 04-29-2013 End: 04-29-2013 Left Heart Cath Left Heart Cath [facility] Work Phone: Start: 04-29-2013 End: 04-29-2013 Nuclear stress test -exercise Nuclear stress test -exercise [facility] Work Phone: Start: 2013 PNEUMOVAX AGE 65 AND OVER WITH 5YR LOOKBACK (#1) PNEUMOVAX AGE 65 AND OVER WITH 5YR LOOKBACK (#1) [facility] Start: 07-04-2011 End: 07-04-2011 Follow Up Appt 6 months Follow Up Appt 6 months [facility] Work Phone: Start: 07-04-2011 End: 07-04-2011 Follow Up Appt 6 months Follow Up Appt 6 months [facility] Work Phone: Start: 02-19-2011 End: 04-29-2013 24 hour holter monitor 24 hour holter monitor [facility] Work Phone: Start: 02-19-2011 End: 04-29-2013 24 hour holter monitor 24 hour holter monitor [facility] Work Phone: Start: 1998 Influenza vaccination LUNG CANCER SCREENING [facility] Start: 1998 SHINGRIX VACCINE (1 of 2) SHINGRIX VACCINE (1 of 2) [facility] Start: 1993 COLOGUARD (FIT-DNA) COLOGUARD (FIT-DNA) [facility] Start: [address] COLONOGRAPHY [facility] Start: 1993 FECAL OCCULT BLOOD FECAL OCCULT BLOOD [facility] Start: 1993 SIGMOIDOSCOPY SIGMOIDOSCOPY [facility] Start: 1983 LIPID SCREEN LIPID SCREEN [facility] Start: 1967 SHINGRIX VACCINE (1 of 2) SHINGRIX VACCINE (1 of 2) [facility] Start: 1967 Urine microalbumin profile DTAP,TDAP,TD (1 - Tdap) [facility] Start: 1966 ANNUAL PCP TEAM CHRONIC DISEASE VISIT ANNUAL PCP TEAM CHRONIC DISEASE VISIT [facility] Start: 1966 BP CONTROLLED (<130/80) BP CONTROLLED (<130/80) [facility] Start: 1966 HEPATITIS C SCREENING HEPATITIS C SCREENING [facility] Start: 1960 Adult depression screening assessment DEPRESSION SCREENING [facility] Start: 1954 PNEUMOCOCCAL: 65+ (1 - PCV) PNEUMOCOCCAL: 65+ (1 - PCV) [facility] Start: 1953 COVID-19 VACCINE (1) COVID-19 VACCINE (1) [facility] Start: 1948 ABDOMINAL AORTIC ANEURYSM SCREENING ABDOMINAL AORTIC ANEURYSM SCREENING [facility] Patient Education Medications [facility] Work Phone: [facility] Payers Date Payer Category Payer Medicare MMO MEDICARE MMO MEDADVANTAGE HMO [id number] 2018-Present [phone] [address] [place] [address] O [id number] 2018 Medicare MMO MEDICARE MMO MEDADVANTAGE HMO [id number] 2018-Present [phone] [address] [place] [address] O [id number] 2018 Unknown [id number] Social History Date Type Detail Facility Start: 09-09-2018 Tobacco smoking stat [facility] Smokes tobacco daily [facility] History of tobacco use Cigarette Smoker [facility] Start: 06-12-2020 End: 02-25-2022 Alcohol intake Current non-drinker of alcohol (finding) [facility] Start: 06-12-2020 End: 02-25-2022 Alcohol intake [facility] Start: 09-09-2018 Tobacco [facility] Start: 1950 Sex Assigned At Not on file [facility] Start: 07-22-2021 End: 08-01-2021 Exposure to SARS-CoV-2 (event) Unable to assess [facility] Work Phone: Start: 08-24-2021 End: 01-21-2022 Exposure to SARS-CoV-2 (event) Not sure [facility] Start: 09-09-2018 Tobacco use and exposure Smokeless tobacco non-user [facility] Clinical Notes 07-29-2021 to 04-18-2022 Telephone Encounter [...] someone fax it to number below at [place] Jennifer Garcia April 18, 2022 2:27 PM [facility] called in requesting we fax the prescription for Xiidra to fax # [phone]. Please advise documented in this encounter [facility] 04-18-2022 Miscellaneous Notes Second attempt faxed to number listed below Jennifer Garcia April 18, 2022 11:45 AM [facility] states [facility]. Patient requests that we fax information to [phone] Optometry Department. Faxed letter per request to [facility] for review, Jennifer Garcia April 18, 2022 [...] our office needs to send to the [facility] why the other medication is not working and send the name of the other medication the doctor wants him to use. [facility] [phone] Provider dimas Santizo Xiidra is the alternative if Restasis is not working. 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 He has not checked cost but [...] wet rags. Spoke to alisa in the [place] office, she advised still waiting on the medication issue to be addressed and the refill of Xiidra to be sent. documented in this encounter [facility] 03-25-2022 Miscellaneous Notes Phone encounter present that patient's symptoms are not being helped with compresses and artifical tears, is requesting next step. Per note in phone encounter pending prescription for Xiidra to Dr. Neal for approval if appropriate. Marci Nielsen RN March 25, 2022 3:33 PM documented in this encounter [facility] 03-08-2022 Miscellaneous Notes Sometimes chilling the drops, or using them [id number] can help. If still very uncomfortable despite trying that, we can look into xiidra instead Patient called stating drops are causing his eyes to burn. Requesting to speak to clinical. documented in this encounter [facility] 02-25-2022 Note HNO ID: [id number] Author: Troy Neal MD Service: ? Author [...] of its relevant components. Troy Neal MD [facility] 02-25-2022 History of Presen t illness Narrative [...] Troy Neal MD documented in this encounter [facility] 01-21-2022 Note HNO ID: [id number] Author: Ever Garduno MD Service: ? Author [...] Foreign body sensation Saw a doctor in [place] and they said maybe it was his [...] daily. (Can try Dipak mask, found on [employer] or at drug stores), followed by lid [...] Garduno MD, January 21, 2022 12:15 PM. [facility] 01-21-2022 Instructions Ever Garduno MD - 01/21/2022 [...] daily. (Can try Dipak mask, found on [employer] or at drug stores), followed by lid [...] dry eye mgmt documented in this encounter [facility] 01-21-2022 History of Presen t illness Narrative [...] daily. (Can try Dipak mask, found on [employer] or at drug stores), followed by lid [...] 2022 12:15 PM. documented in this encounter [facility] 09-18-2021 Miscellaneous Notes T/C to pt gave results provided. Pt voices understanding. Pt calling for results of yesterdays blood work.Please advise. Component Latest Ref Rng & Units 09/11/2021 TSI Qualitative Negative Negative TSI <0.55 IU/L <0.10 documented in this encounter [facility] 09-03-2021 Note HNO ID: [id number] Author: Troy Neal MD Service: ? Author [...] of its relevant components. Troy Neal MD September 03, 2021 10:00 AM [facility] 07-29-2021 Miscellaneous Notes Spoke to patient, will call and make an appointment with Gastroenterology, per Dr Linn recommendation. Patient has not been evaluated by our office in over a year, therefore a refill would not be appropriate. Per review of documentation in [facility], phone encounter from 02/15/[address] Linn had recommended patient see Gastroenterology for persistent abdominal complaints, unless patient wanting to pursue endoscopy specifically with Dr. Linn. 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 Pseudophakia Lens replaced by other means Early dry stage nonexudative age-related macular degeneration of both eyes documented in this encounter [facility] Advance Directives No Advanced Directives Records FoundDocuments on File Type Date Recorded Patient Validation Leader Expl anation Advance Directive(s) 10/27/2019 9:53 AM [...] or prosecute any alcohol or drug abuse patient.[facility] the event this information is protected by the Federal Confidentiality of Alcohol and Drug Abuse Patient Records regulations: The Federal rules restrict any use of the information to criminally investigate or prosecute any alcohol or drug abuse patient.[facility] the event this information is protected by the Federal Confidentiality of Alcohol and Drug Abuse Patient Records regulations: The Federal rules restrict any use of the information to criminally investigate or prosecute any alcohol or drug abuse patient.[facility] the event this information is protected by the Federal Confidentiality of Alcohol and Drug Abuse Patient Records regulations: The Federal rules restrict any use of the information to criminally investigate or prosecute any alcohol or drug abuse patient.[facility] the event this information is protected by the Federal Confidentiality of Alcohol and Drug Abuse Patient Records regulations: The Federal rules restrict any use of the information to criminally investigate or prosecute any alcohol or drug abuse patient.[facility] the event this information is protected by the Federal Confidentiality of Alcohol and Drug Abuse Patient Records regulations: The Federal rules restrict any use of the information to criminally investigate or prosecute any alcohol or drug abuse patient.[facility] the event this information is protected by the Federal Confidentiality of Alcohol and Drug Abuse Patient Records regulations: The Federal rules restrict any use of the information to criminally investigate or prosecute any alcohol or drug abuse patient.[facility] the event this information is protected by the Federal Confidentiality of Alcohol and Drug Abuse Patient Records regulations: The Federal rules restrict any use of the information to criminally investigate or prosecute any alcohol or drug abuse patient.[facility] the event this information is protected by the Federal Confidentiality of Alcohol and Drug Abuse Patient Records regulations: The Federal rules restrict any use of the information to criminally investigate or prosecute any alcohol or drug abuse patient.[facility] Reason for Visit (unrecogniz ed section and [...] Care Teams (unrecognized sec tion and content) Film Coater Relationship Specialty Start Date End Date Selene Das [address] [place] [address] PCP - General Family Practice 02/24/20 Film Coater Relationship Specialty Start Date End Date Selene Das [address] [place] [address] PCP - General Family Practice 02/24/20 Film Coater Relationship Specialty Start Date End Date Selene Das [address] [place] [address] PCP - General Family Medicine 02/24/20 Film Coater Relationship Specialty Start Date End Date Selene Das [address] [facility] [address] [place] [address] PCP - General Family Medicine 02/24/20 Film Coater Relationship Specialty Start Date End Date Selene Das [address] [facility] [address] [place] [address] PCP - General Family Medicine 02/24/20 Film Coater Relationship Specialty Start Date End Date Selene Das [address] [facility] [address] [place] [address] PCP - General Family Medicine 02/24/20 Film Coater Relationship Specialty Start Date End Date Selene Das [address] [facility] [address] [place] [address] PCP - General Family Medicine 02/24/20 (unrecognized [...] BE BASED ON THE PRIMARY CLINICAL RECORDS. [employer] provides no warranty or guarantee of the accuracy or completeness of information in this document.
== END | disposition home or self-care (01) ==
LOC: CVS 07:39
PROVIDERS: PCP Family Medicine; Referring Provider Nurse Practitioner Gerontology; Visit Provider Nurse Practitioner Gerontology
DX: R93.5 Abnormal findings on diagnostic imaging of other abdominal regions, including retroperitoneum (principal); E78.5 Hyperlipidemia, unspecified; F17.210 Nicotine dependence, cigarettes, uncomplicated; I10 Essential (primary) hypertension
CPT/HCPCS: 93978

== ENCOUNTER → 2023-06-09 | Outpatient (CLI) | payer MEDICARE, SELFPAY ==
[2023-06-09 08:56] LABS: Bacteria 0 SEEN /hpf (None Seen); Mucous, Urine 0 SEEN /hpf (<or=2+); Red Blood Cells-Urine 0 SEEN /hpf (0-5); Squamous Epithelial Cells - UA 0 SEEN /hpf (0-5); White Blood Cells 0 SEEN /hpf (0-5)
[2023-06-09 10:17] LABS: Color, Urine Yellow (Yellow); Glucose, Dipstick Normal (Normal); Ketone-Dipstick Negative (Negative); Leukocyte Esterase-Dipstick Negative /ul (Negative); Nitrite-Dipstick Negative (Negative); Occult Blood-Urine Negative /ul (Negative); Protein-Dipstick Negative (Negative); Urine Bilirubin Dipstick Negative (Negative); Urine Clarity Clear (Clear); Urine Urobilinogen 1 mg/dl (Normal)
[2023-06-09 10:24] LABS: Absolute Lymphocyte Count 1.43 X10^3/uL (0.83-4.51); Absolute Neutrophil Count 3.7 X10^3/uL (2.0-7.7); Basophil# 0.04 X10^3/uL; Basophil% 0.7 % (0-1); Eosinophils% 1.7 % (0-5); Hematocrit 40.9 % (40-54); Hemoglobin 13.2 g/dL (13.0-16.5); Lymphocyte # 1.43 X10^3/ul (0.83-4.51); Lymphocyte % 24.7 % (19-41); Mean Corp Hgb Conc 32.3 g/dL (32-36); Mean Corpuscular Hgb 28.4 pg (27.0-32.0); Mean Corpuscular Volume 88.1 fL (80-94); Mean Platelet Vol. 9.9 fl (6.2-12.0); Monocyte# 0.48 X10^3/uL; Monocyte% 8.3 % (0-10); NRBC Flagged by Analyzer 0 % (0-5); Neutrophil # 3.72 X10^3/uL (2.7-7.7); Neutrophil % 64.1 % (47-70); Platelet Count 154 K/mm3 (150-450); RBC Distribution Width CV 15.7 % (11.6-14.6); RBC Distribution Width SD 50.9 fl (35.1-43.9); Red Blood Count 4.64 M/mm3 (4.6-6.2); White Blood Count 5.8 K/mm3 (4.4-11.0)
[2023-06-09 10:34] LABS: Protein, Urine (Random) 24.7 mg/dL (<11.9); Protein:Creat Ratio 127 mg/g CRE (0-200)
[2023-06-09 10:40] LABS: Vitamin D,25 Hydroxy 64.9 ng/mL
[2023-06-09 10:56] LABS: AST(SGOT) 21 U/L (15-37); Alanine Aminotransfer ALT/SGPT 32 U/L (16-61); Albumin, Serum 3.5 g/dL (3.2-5.0); Alkaline Phosphatase 95 U/L (45-117); Anion Gap 5 (5-15); BUN 19 mg/dL (7-18); BUN/Creat Ratio 15.4 RATIO (10-20); Chloride 108 mmol/L (98-107); Cholesterol 130 mg/dL (200); Creatinine, Serum 1.23 mg/dL (0.70-1.30); EST Glomerular Filtration Rate 61 mL/min (>60); Est Glom Filt Rate - Afr Amer 74 mL/min (>60); Globulin 3.4 g/dL (2.2-4.2); Glucose 106 mg/dL (74-106); High Density Lipoprotein 54 mg/dL; Magnesium 2.1 mg/dL (1.6-2.6); Potassium 4.7 mmol/L (3.5-5.1); Protein, Total 6.9 g/dL (6.4-8.2); Sodium Level 140 mmol/L (136-145); Thyroid Stim Hormone (TSH) 1.41 uIU/mL (0.358-3.74); Triglycerides 54 mg/dL; Very Low Density Lipoprotein 11 mg/dL (5-40)
== END | disposition home or self-care (01) ==
LOC: MFPLAB 08:54
PROVIDERS: PCP Family Medicine; Visit Provider Family Medicine
DX: I12.9 Hypertensive chronic kidney disease with stage 1 through stage 4 chronic kidney disease, or unspecified chronic kidney disease (principal); N18.30 Chronic kidney disease, stage 3 unspecified
CPT/HCPCS: 36415; 80053; 80061; 81001; 82306; 82570; 83735; 83970; 84156; 84443; 85025

== ENCOUNTER → 2023-08-18 | Outpatient (CLI) | payer MEDICARE, SELFPAY ==
[2023-08-18 15:33] LABS: PSA,Total - Annual Screen < 0.01 ng/mL (0.00-4.00)
== END | disposition home or self-care (01) ==
LOC: MFPLAB 11:23
PROVIDERS: PCP Family Medicine; Visit Provider Family Medicine
DX: Z12.5 Encounter for screening for malignant neoplasm of prostate (principal)
CPT/HCPCS: 84153; G0103

== ENCOUNTER → 2023-09-09 | Outpatient (CLI) | payer MEDICARE, SELFPAY ==
--- NOTE | 2023-09-09 07:37 | CT_ITS ---
STUDY: LOW DOSE CT LUNG CANCER SCREENING REASON FOR EXAM: Male, 73 years old. Smoker . Patient smoked three quarters of a package of cigarettes per day for 55 years. COPD. RADIATION DOSAGE (If Supplied By Facility): CTDIvol = ( 2.01 ) mGy, DLP = ( 66.20 ) mGycm TECHNIQUE: No contrast was administered. Low dose technique was utilized (average mAS-38 and kVp 120). 1.25 mm axial source images with a slice interval of 1.25-mm were reconstructed in lung windows. 2.5 mm axial source images with a slice interval of 2.5-mm were reconstructed in lung windows. 5.0 mm axial source images with a slice interval of 5.0-mm were reconstructed in soft tissue windows. COMPARISON: Comparison is made with prior examination dated September 06, 2022. NODULES: Stable 2 cm calcified granulomas in the right lung apex as well as in the anterior aspect of the right upper lobe. Stable 2 mm partially calcified nodule in the left lower lobe Emphysema: Hyperinflation. Diffuse emphysematous changes. Endobronchial lesion: None Aorta: Atherosclerotic plaque formation. CORONARY ARTERIES: Coronary artery calcification is seen. Heart: Unremarkable Pulmonary artery: Unremarkable Mediastinal nodes: Unremarkable Other chest and abdominal findings: CT/Low Dose CT Lung Screening IMPRESSION: Lung-RADS category 2 - Continue annual screening with LDCT in 12 months. IMPORTANT NOTES FOR USE: ACR Lung-RADS Version 1.1 Assessment Categories Release Date: 2018 Category: Coded 0-4 bases on nodule(s) with highest degree of suspicion. Negative screen is defined as categories 1 and 2; a positive screen is defined as categories 3 and 4. Category 3 and 4A nodules that are unchanged on interval CT should be coded as category 2, and individuals returned to screening in 12 months. Category 4X: Category 3 or 4 nodules with additional imaging findings that increase the suspicion of lung cancer, such as spiculation, GGN that doubles in size in 1 year, enlarged lymph notes, etc. Category Modifiers: S (significant finding unrelated to lung cancer) Electronically Signed: Lukas Howard MD at 15:22 EDT ,
== END | disposition home or self-care (01) ==
LOC: CT 07:36
PROVIDERS: PCP Family Medicine; Referring Provider Family Medicine; Visit Provider Family Medicine
DX: F17.210 Nicotine dependence, cigarettes, uncomplicated (principal)
CPT/HCPCS: 71271

== ENCOUNTER → 2023-12-16 | Outpatient (CLI) | payer MEDICARE, SELFPAY ==
[2023-12-16 12:29] LABS: Absolute Neutrophil Count 3.4 X10^3/uL (2.0-7.7); Basophil# 0.04 X10^3/uL; Basophil% 0.8 % (0-1); Eosinophil# 0.13 X10^3/uL; Eosinophils% 2.5 % (0-5); Hematocrit 41.3 % (40-54); Hemoglobin 13.5 g/dL (13.0-16.5); Lymphocyte % 24.5 % (19-41); Mean Corp Hgb Conc 32.7 g/dL (32-36); Mean Corpuscular Hgb 29.7 pg (27.0-32.0); Mean Corpuscular Volume 90.8 fL (80-94); Mean Platelet Vol. 9.8 fl (6.2-12.0); Monocyte# 0.38 X10^3/uL; Monocyte% 7.2 % (0-10); NRBC Flagged by Analyzer 0 % (0-5); Neutrophil # 3.42 X10^3/uL (2.7-7.7); Neutrophil % 64.4 % (47-70); Platelet Count 171 K/mm3 (150-450); RBC Distribution Width CV 14.6 % (11.6-14.6); RBC Distribution Width SD 48.8 fl (35.1-43.9); Red Blood Count 4.55 M/mm3 (4.6-6.2); White Blood Count 5.3 K/mm3 (4.4-11.0)
[2023-12-16 12:46] LABS: Protein, Urine (Random) 14.4 mg/dL (<11.9); Protein:Creat Ratio 204 mg/g CRE (0-200)
[2023-12-16 12:50] LABS: Color, Urine Yellow (Yellow); Glucose, Dipstick Normal (Normal); Ketone-Dipstick Negative (Negative); Leukocyte Esterase-Dipstick 25 /ul (Negative); Nitrite-Dipstick Negative (Negative); Occult Blood-Urine Negative /ul (Negative); Protein-Dipstick Negative (Negative); Urine Bilirubin Dipstick Negative (Negative); Urine Clarity Clear (Clear); Urine Urobilinogen Normal (Normal)
[2023-12-16 12:58] LABS: Vitamin D,25 Hydroxy 59.6 ng/mL
[2023-12-16 13:07] LABS: ALB/GLOB Ratio 1.1 RATIO (0.9-2.4); AST(SGOT) 36 U/L (15-37); Alanine Aminotransfer ALT/SGPT 51 U/L (16-61); Albumin, Serum 3.6 g/dL (3.2-5.0); Alkaline Phosphatase 111 U/L (45-117); Anion Gap 3 (5-15); BUN 14 mg/dL (7-18); BUN/Creat Ratio 11.4 RATIO (10-20); Calcium,Total 9.1 mg/dL (8.5-10.1); Chloride 104 mmol/L (98-107); Cholesterol 132 mg/dL (200); Creatinine, Serum 1.23 mg/dL (0.70-1.30); EST Glomerular Filtration Rate 61 mL/min (>60); Est Glom Filt Rate - Afr Amer 74 mL/min (>60); Globulin 3.4 g/dL (2.2-4.2); Glucose 107 mg/dL (74-106); High Density Lipoprotein 46 mg/dL; Magnesium 1.8 mg/dL (1.6-2.6); Potassium 4.6 mmol/L (3.5-5.1); Sodium Level 134 mmol/L (136-145); Triglycerides 93 mg/dL; Very Low Density Lipoprotein 19 mg/dL (5-40)
== END | disposition home or self-care (01) ==
LOC: MFPLAB 09:30
PROVIDERS: PCP Family Medicine; Visit Provider Family Medicine
DX: I12.9 Hypertensive chronic kidney disease with stage 1 through stage 4 chronic kidney disease, or unspecified chronic kidney disease (principal); N18.30 Chronic kidney disease, stage 3 unspecified
CPT/HCPCS: 36415; 80053; 80061; 81002; 82306; 82570; 83036; 83735; 84156; 84443; 85025

== ENCOUNTER → 2023-12-23 | Outpatient (CLI) | payer MEDICARE, SELFPAY ==
[2023-12-23 09:12] LABS: Absolute Lymphocyte Count 1.14 X10^3/uL (0.83-4.51); Absolute Neutrophil Count 3.3 X10^3/uL (2.0-7.7); Basophil# 0.03 X10^3/uL; Basophil% 0.6 % (0-1); Eosinophil# 0.14 X10^3/uL; Eosinophils% 2.8 % (0-5); Hemoglobin 13.2 g/dL (13.0-16.5); Lymphocyte # 1.14 X10^3/ul (0.83-4.51); Lymphocyte % 22.6 % (19-41); Mean Corpuscular Hgb 29.9 pg (27.0-32.0); Mean Corpuscular Volume 90.5 fL (80-94); Mean Platelet Vol. 9.2 fl (6.2-12.0); Monocyte# 0.43 X10^3/uL; Monocyte% 8.5 % (0-10); NRBC Flagged by Analyzer 0 % (0-5); Neutrophil # 3.28 X10^3/uL (2.7-7.7); Neutrophil % 65.1 % (47-70); Platelet Count 143 K/mm3 (150-450); RBC Distribution Width CV 14.3 % (11.6-14.6); RBC Distribution Width SD 47.9 fl (35.1-43.9); Red Blood Count 4.42 M/mm3 (4.6-6.2)
[2023-12-23 09:45] LABS: Hemoglobin A1c 5.1 % (3.8-5.6)
== END | disposition home or self-care (01) ==
LOC: LAB 08:36
PROVIDERS: Family Medicine; PCP Family Medicine; Referring Provider Internal Medicine Pulmonary Disease; Visit Provider Internal Medicine Pulmonary Disease
DX: J44.9 Chronic obstructive pulmonary disease, unspecified (principal); N18.30 Chronic kidney disease, stage 3 unspecified; G47.33 Obstructive sleep apnea (adult) (pediatric)
CPT/HCPCS: 36415; 83036; 85025

== ENCOUNTER → 2024-02-26 | Outpatient (CLI) | payer MEDICARE, SELFPAY ==
--- NOTE | 2024-02-26 08:37 | CT_ITS ---
EXAM: CT CHEST WITHOUT INTRAVENOUS CONTRAST CLINICAL INDICATION: COPD, DYSPNEA TECHNIQUE: Helically acquired images were obtained of the chest without intravenous contrast. This CT exam was performed using one or more of the following dose reduction techniques: automated exposure control, adjustment of the mA and/or kV according to patient size, and/or use of iterative reconstruction technique. COMPARISON: Low-dose CT chest 09/09/2023 FINDINGS: LUNGS AND PLEURAL SPACES: Centrilobular emphysematous changes of lungs again noted. Small calcified granulomata within the lungs again seen bilaterally. No mass. No pleural effusion or thickening. No pneumothorax. HEART: Normal. Normal heart size. Coronary artery calcifications/stent is noted. MEDIASTINUM: Normal. No mediastinal or hilar adenopathy. Esophagus is unremarkable. No hiatal hernia. BONES/JOINTS: No suspicious lytic or blastic abnormality. VASCULATURE: No aortic aneurysm. SPLEEN: Multiple splenic granulomata. CT/Chest without Contrast IMPRESSION: 1. No acute cardiopulmonary abnormality. 2. Stable emphysema. 3. Pulmonary emphysema is an independent risk factor for lung cancer. Recommend annual low-dose CT lung cancer screening. Electronically Signed: Andrea Dejesus MD at 11:15 EST ,
== END | disposition home or self-care (01) ==
PROVIDERS: PCP Family Medicine; Referring Provider Internal Medicine Pulmonary Disease; Visit Provider Internal Medicine Pulmonary Disease
DX: R91.1 Solitary pulmonary nodule (principal); J44.9 Chronic obstructive pulmonary disease, unspecified; R06.00 Dyspnea, unspecified; Z87.891 Personal history of nicotine dependence
CPT/HCPCS: 71250

== ENCOUNTER → 2024-04-14 | Outpatient (CLI) | payer MEDICARE, SELFPAY ==
--- NOTE | 2024-04-14 10:20 | RAD_ITS ---
HISTORY: ABDOMINAL PAIN. TECHNIQUE: XR Abdomen W/ Decub and/or Erect Views. COMPARISON: None. FINDINGS: BOWEL GAS PATTERN: No dilated bowel loops identified. Scattered stool and air throughout the colon. FREE AIR: No gross free air seen on upright view CALCIFICATIONS: Vascular calcifications observed. BONES: Mild degenerative change. Mild lumbar dextrocurvature. SOFT TISSUES: Right pelvic surgical clip. RAD/[employer] Decub and/or Erect IMPRESSION: Non-obstructive bowel gas pattern. Electronically Signed: Christina Diez MD at 14:39 EST ,
[2024-04-14 10:24] LABS: Bacteria 0 SEEN /hpf (None Seen); Mucous, Urine 0 SEEN /hpf (<or=2+); Red Blood Cells-Urine 0 SEEN /hpf (0-5); Squamous Epithelial Cells - UA 0 SEEN /hpf (0-5); White Blood Cells 0 SEEN /hpf (0-5)
[2024-04-14 12:18] LABS: Absolute Lymphocyte Count 1.84 X10^3/uL (0.83-4.51); Absolute Neutrophil Count 6.8 X10^3/uL (2.0-7.7); Basophil# 0.06 X10^3/uL; Basophil% 0.6 % (0-1); Eosinophil# 0.12 X10^3/uL; Eosinophils% 1.3 % (0-5); Hemoglobin 14.6 g/dL (13.0-16.5); Lymphocyte # 1.84 X10^3/ul (0.83-4.51); Lymphocyte % 19.2 % (19-41); Mean Corp Hgb Conc 32.4 g/dL (32-36); Mean Corpuscular Hgb 29.4 pg (27.0-32.0); Mean Corpuscular Volume 90.5 fL (80-94); Mean Platelet Vol. 10.2 fl (6.2-12.0); Monocyte# 0.68 X10^3/uL; Monocyte% 7.1 % (0-10); NRBC Flagged by Analyzer 0 % (0-5); Neutrophil # 6.83 X10^3/uL (2.7-7.7); Neutrophil % 71.4 % (47-70); Platelet Count 187 K/mm3 (150-450); RBC Distribution Width CV 13.8 % (11.6-14.6); RBC Distribution Width SD 45.8 fl (35.1-43.9); Red Blood Count 4.97 M/mm3 (4.6-6.2); White Blood Count 9.6 K/mm3 (4.4-11.0)
[2024-04-14 12:33] LABS: Color, Urine Yellow (Yellow); Glucose, Dipstick Normal (Normal); Ketone-Dipstick Negative (Negative); Leukocyte Esterase-Dipstick Negative /ul (Negative); Nitrite-Dipstick Negative (Negative); Occult Blood-Urine Negative /ul (Negative); Protein-Dipstick Negative (Negative); Urine Bilirubin Dipstick Negative (Negative); Urine Clarity Clear (Clear); Urine Urobilinogen Normal (Normal)
[2024-04-14 12:42] LABS: ALB/GLOB Ratio 1.1 RATIO (0.9-2.4); AST(SGOT) 20 U/L (15-37); Alanine Aminotransfer ALT/SGPT 24 U/L (16-61); Albumin, Serum 3.8 g/dL (3.2-5.0); Alkaline Phosphatase 106 U/L (45-117); Anion Gap 5 (5-15); BUN 15 mg/dL (7-18); BUN/Creat Ratio 12.9 RATIO (10-20); Calcium,Total 9.2 mg/dL (8.5-10.1); Chloride 104 mmol/L (98-107); Creatinine, Serum 1.16 mg/dL (0.70-1.30); EST Glomerular Filtration Rate 65 mL/min (>60); Est Glom Filt Rate - Afr Amer 79 mL/min (>60); Globulin 3.6 g/dL (2.2-4.2); Glucose 90 mg/dL (74-106); Lipase 41 U/L (13-75); Potassium 4.3 mmol/L (3.5-5.1); Protein, Total 7.4 g/dL (6.4-8.2); Sodium Level 136 mmol/L (136-145)
== END | disposition home or self-care (01) ==
PROVIDERS: PCP Family Medicine; Referring Provider Family Medicine; Visit Provider Family Medicine
DX: R10.9 Unspecified abdominal pain (principal)
CPT/HCPCS: 36415; 74019; 80053; 81001; 83690; 85025

== ENCOUNTER → 2024-04-19 | Outpatient (CLI) | payer MEDICARE, SELFPAY ==
--- NOTE | 2024-04-19 08:52 | RAD_ITS ---
STUDY: X-RAY - RIGHT RADIUS AND ULNA REASON FOR EXAM: Male, 74 years old. Right forearm injury. TECHNIQUE: 2 views of the right forearm. COMPARISON: None. FINDINGS: There is no demonstrated soft tissue swelling. The distal ulna is absent, which may be due to prior surgical resection. Intact visualized radius. There is no demonstrated acute fracture. RAD/Forearm 2 Views IMPRESSION: Absent distal radius, which may be due to prior surgical resection. No demonstrated acute fracture. Electronically Signed: Kings Perry MD at 12:28 EST ,
== END | disposition home or self-care (01) ==
LOC: MTRAD 08:52
PROVIDERS: PCP Family Medicine; Referring Provider Family Medicine; Visit Provider Family Medicine
DX: S59.911A Unspecified injury of right forearm, initial encounter (principal)
CPT/HCPCS: 73090

== ENCOUNTER → 2024-05-06 | Outpatient (CLI) | payer MEDICARE, SELFPAY ==
--- NOTE | 2024-05-06 09:17 | CT_ITS ---
PROCEDURE: ABDOMEN/PELVIS WITHOUT CONT REASON FOR EXAM: Left lower quadrant pain. Hypertension. Prior CVA TECHNIQUE: Axial CT images of the abdomen and pelvis was performed without IV contrast enhancement. Sagittal and coronal reconstructed images were performed for better visualization of the horizontal structures. Limited assessment of the abdominal viscera, without the use of IV contrast enhancement. COMPARISON: 04/08/2023 FINDINGS: Lung bases: Trace atelectasis within the lung bases and lingula. Liver: Unremarkable. Gallbladder: Moderately distended. No calcified gallstones are identified. No pericholecystic inflammation. Spleen: Splenic granulomas again noted. No evidence of splenomegaly. Pancreas: Unenhanced pancreas appears intact. No significant peripancreatic inflammatory changes. Adrenals: No adrenal masses are identified bilaterally. Kidneys: No calcifications or obstructive uropathy involving the bilateral collecting system. Mild perinephric fat stranding bilaterally slightly more conspicuous on the left. Bladder: Mildly distended. No bladder calculi are identified. No bladder wall thickening. Reproductive Organs: Prostate gland is not enlarged. Bowel: No bowel obstruction is identified. Emdv-ao-fvakicqr amounts of fecal retention. Scattered diverticulosis mostly involving the descending and sigmoid colon without gross surrounding inflammatory changes. Appendix: Normal. Lymph nodes: No suspicious lymph node enlargement. Vasculature: Mild ectasia and vascular calcifications throughout the abdominal aorta. Peritoneum / Retroperitoneum: No ascites. No free air. Bones: Slight dextrocurvature and spondylotic change involving the lumbar spine. CT/Abdomen/Pelvis without Cont IMPRESSION: 1. No calcifications or obstructive uropathy involving the bilateral collecting systems. 2. Mild perinephric fat stranding bilaterally, slightly more conspicuous on the left. Correlate with urinalysis to exclude underlying infectious process. 3. Scattered diverticulosis most prominent of the descending and sigmoid colon, without gross surrounding inflammatory changes. 4. Appendix is negative. 5. Evidence of prior granulomatous infection. 6. Additional findings, as detailed above. One or more dose reduction techniques were used (e.g., Automated exposure contr ol, adjustment of the mA and/or kV according to patient size, use of iterative reconstruction technique). Reading Location: [facility]
== END | disposition home or self-care (01) ==
LOC: CT 09:13
PROVIDERS: PCP Family Medicine; Referring Provider Family Medicine; Visit Provider Family Medicine
DX: R10.32 Left lower quadrant pain (principal)
CPT/HCPCS: 74176

== ENCOUNTER → 2024-06-17 | Outpatient (CLI) | payer MEDICARE, SELFPAY ==
--- NOTE | 2024-06-17 09:54 | MRI_ITS ---
PROCEDURE: [facility]17[facility] REASON FOR EXAM: PAIN TECHNIQUE: Multisequence multiplanar MRI cervical spine was performed without IV contrast. COMPARISON: 04/29/2024. FINDINGS: Cervical vertebral body heights are preserved. Mild degenerative type marrow signal changes at C3-C4 and along the articulation of the dens and the anterior arch of C1. Small Schmorl's nodes along the inferior C3 endplate. Slightly exaggerated thoracic kyphosis.. Trace likely degenerative retrolisthesis at C3-C4. Cord signal within normal limits. Diffuse disc desiccation. Slight diffuse/generalized stenosis of the spinal canal likely on a congenital basis. Additional level by level findings as below: C2-3: Mild posterior central disc protrusion. Mild LAFB-kmahpoq-vpwq-RIGHT facet arthropathy. Mild ligamentum flavum hypertrophy. Mild/moderate focal spinal canal stenosis. Mild LEFT foraminal stenosis. C3-4: Trace retrolisthesis as above with mild disc uncovering. Broad-based posterior disc bulging. Mild ligamentum flavum hypertrophy. Bilateral facet and uncovertebral arthropathy. Moderate focal spinal canal stenosis with mild cord contour abnormality and incomplete effacement of CSF. Moderate LEFT and mild RIGHT foraminal stenosis.. C4-5: Diffuse disc bulging with superimposed RIGHT paracentral disc protrusion contacting the ventral cord. Mild focal spinal canal stenosis. Facet/uncovertebral arthropathy. Mild/moderate LEFT and mild RIGHT foraminal stenosis.. C5-6: Limited evaluation on axial imaging due to suboptimal signal to noise ratio. Disc height loss with suggestion of diffuse disc bulging and small subarticular/foraminal disc/osteophyte complexes. Likely facet/uncovertebral arthropathy. Foramina are difficult to evaluate. At least cwgsxvax-lf-gzoybi GLUAM-egsuudn-gwxd-LEFT foraminal stenoses are suspected but not well delineated. Moderate focal spinal with incomplete effacement canal stenosis of CSF. C6-7: Similar limitation related to signal to noise ratio, foramen again difficult to evaluate. Disc height loss with suspected diffuse disc bulging. Superimposed bilateral foraminal and subarticular disc/osteophyte complexes and disc protrusions are suspected on sagittal imaging. Likely facet/uncovertebral arthropathy. At least moderate bilateral foraminal stenoses are suspected. Mild ligamentum flavum hypertrophy. At least moderate spinal canal stenosis suspected with virtually complete effacement of CSF. C7-T1: No significant spinal canal or foraminal stenosis evident.. 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 Diverticulosis. Partially imaged LEFT maxillary and ethmoid paranasal sinuses disease, not well evaluated. MRI/Spine Cervical (Routine) IMPRESSION: 1. Multilevel spondylosis as above. Note assessment from C5-T1 is limited on a technical basis. 2. Congenitally small caliber of the spinal canal contributes to generalized mi ld stenosis. Superimposed focal spinal canal stenoses, suspected to be up to at least moderate at C6-C7 and C3-C4, difficult to evaluate at C6-C7 given technical limitations. Variable foraminal stenoses, suspected to be up to at least moderate/severe meera aterally at C5-C6, and at least moderate bilaterally at C6-C7, similarly difficult to evaluate on a technical basis. CT may be helpful as indicated. 3. Partially imaged LEFT maxillary and ethmoid paranasal sinus disease. 4. Additional description as above. Reading Location: [id number]
== END | disposition home or self-care (01) ==
PROVIDERS: PCP Family Medicine; Referring Provider Orthopaedic Surgery Orthopaedic Surgery of the Spine; Visit Provider Orthopaedic Surgery Orthopaedic Surgery of the Spine
DX: M50.30 Other cervical disc degeneration, unspecified cervical region (principal)
CPT/HCPCS: 72141

== ENCOUNTER → 2024-08-20 | Outpatient (CLI) | payer MEDICARE, SELFPAY ==
--- NOTE | 2024-08-20 08:05 | US_ITS ---
EXAM: US Scrotum and US Duplex Arterial/Venous of the Testicles, Complete CLINICAL INDICATION: TESTICULAR LUMP TECHNIQUE: Real-time ultrasound of the scrotum with color Doppler and image documentation. Real-time duplex ultrasound scan of the arterial and venous flow of the scrotal contents with color Doppler flow and spectral waveform analysis. COMPARISON: No relevant prior studies available. FINDINGS: LIMITATIONS: Right addendum limits measures 1.2 x 1.4 x 1.5 cm. RIGHT TESTICLE: Unremarkable. No torsion. The right testicle measures 4.2 x 3.2 x 1.9 cm. LEFT TESTICLE: Unremarkable. No torsion. The left testicle measures 4.8 x 3.2 x 2.1 cm. EPIDIDYMIDES: Left epididymal cysts, largest measuring up to 0.4 cm. Left epididymal cyst measures 1.0 by 0.6 x 0.7 cm. 1.2 cm simple right epididymal cyst. SCROTUM: Small right hydrocele. Small left hydrocele. US/Testicular with Arterial Flow IMPRESSION: Bilateral epididymal cyst, simple. Bilateral hydroceles. Reading Location: [id number]
== END | disposition home or self-care (01) ==
LOC: US 08:02
PROVIDERS: PCP Family Medicine; Referring Provider Family Medicine; Visit Provider Family Medicine
DX: I10 Essential (primary) hypertension (principal); Q55.20 Unspecified congenital malformations of testis and scrotum; Z85.46 Personal history of malignant neoplasm of prostate
CPT/HCPCS: 76870; 93976

== ENCOUNTER → 2024-08-23 | Outpatient (CLI) | payer MEDICARE, SELFPAY ==
[2024-08-23 13:00] LABS: PSA,Total - Annual Screen < 0.02 ng/mL (0.02-4.00)
== END | disposition home or self-care (01) ==
LOC: MTLAB 09:20
PROVIDERS: PCP Family Medicine; Referring Provider Family Medicine; Visit Provider Family Medicine
DX: Z12.5 Encounter for screening for malignant neoplasm of prostate (principal)
CPT/HCPCS: 36415; 84153; G0103

== ENCOUNTER → 2024-10-04 | Outpatient (CLI) | payer MEDICARE, SELFPAY ==
--- NOTE | 2024-10-04 14:04 | CT_ITS ---
PROCEDURE: LOW DOSE CT LUNG SCREENING 10/04/2024 REASON FOR EXAM: LUNG CANCER SCREENING 1-1/2 pack per day smoker times 56 years, current smoker TECHNIQUE: LOW DOSE CT LUNG SCREENING Coronal and Sagittal reconstruction series were provided. One or more dose reduction techniques were used (e.g., Automated exposure control, adjustment of the mA and/or kV according to patient size, use of iterative reconstruction technique). REFERENCE LINK: [facility] Lung-RADS RADIATION DOSE SUMMARY: CTDlvol: 2.01 mGy DLP: 69.47 mGycm COMPARISON: 02/26/2024 FINDINGS: PULMONARY NODULES: (Only nodules >3mm are reported) Lung windows show underlying emphysema with stable nonspecific pleural thickening in both apices and both hemithoraces. No organized infiltrate or effusion. There are however subtle new noncalcified opacifications in the right middle lobe on axial images 87 through 93 that are likely too small to characterize via PET/CT scan so a short-term follow-up CT is recommended for surveillance. There are scattered calcified granulomata, no other suspicious noncalcified mass or nodule fibrotic scarring noted in both lung bases. Limited soft tissue windows show a normal-appearing thyroid gland. No suspicious adenopathy there are calcified perihilar lymph nodes noted. Calcified coronary vessels are noted along with peripheral calcifications in the thoracic aorta. Limited cuts of the upper abdomen do not show a suspicious solid organ abnormality. Bony structures show degenerative change CT/Low Dose CT Lung Screening IMPRESSION: Underlying emphysema with new subcentimeter noncalcified nodules in the right m iddle lobe. Short-term follow-up recommended to reassess Coronary artery calcification (CAC) is is present Lung-RADS Category: 4A SUSPICIOUS. RECOMMEND 3 MONTH LDCT; PET/CT MAY BE CONSID ERED IF THERE IS A >=8MM SOLID NODULE OR SOLID COMPONENT. Other Significant Findings: Reading Location: [id number]
== END | disposition home or self-care (01) ==
LOC: CT 14:03
PROVIDERS: PCP Family Medicine; Referring Provider Nurse Practitioner Family; Visit Provider Nurse Practitioner Family
DX: Z12.2 Encounter for screening for malignant neoplasm of respiratory organs (principal); Z87.891 Personal history of nicotine dependence
CPT/HCPCS: 71271

== ENCOUNTER → 2024-10-19 | Outpatient (CLI) | payer MEDICARE, SELFPAY ==
[2024-10-19 13:48] LABS: Color, Urine Yellow (Yellow); Glucose, Dipstick Normal (Normal); Ketone-Dipstick Negative (Negative); Leukocyte Esterase-Dipstick Negative /ul (Negative); Nitrite-Dipstick Negative (Negative); Occult Blood-Urine Negative /ul (Negative); Protein-Dipstick Negative (Negative); Specific Gravity, Urine 1.010 (1.002-1.030); Urine Bilirubin Dipstick Negative (Negative)
== END | disposition home or self-care (01) ==
LOC: MFPLAB 08:53
PROVIDERS: PCP Family Medicine; Referring Provider Family Medicine; Visit Provider Family Medicine
DX: N39.0 Urinary tract infection, site not specified (principal)
CPT/HCPCS: 81002; 87086; 87088

== ENCOUNTER → 2024-11-03 | Outpatient (CLI) | payer MEDICARE, SELFPAY ==
--- NOTE | 2024-11-03 14:48 | VDLE_ITS ---
Reason For Study Reason For Study: RLE Pain RIGHT GSV is normal. CFV is compressible, spontaneous, phasic, competent and demonstrates normal augmentation. FV is compressible, spontaneous, phasic, competent and demonstrates normal augmentation. POP V is compressible, spontaneous, phasic, competent and demonstrates normal augmentation. T/P Trunk is compressible. PTV is compressible. RT PerV is compressible. Procedure This is a venous duplex using B-mode, color flow and spectral Doppler. Exam performed in department. The exam was diagnostic. A preliminary report was called and/or faxed to Dr Mariano office. VL/Venous Duplex US, Unilateral Interpretation Summary Deep veins of the right lower extremity are patent and compressible segmentally . There is no evidence of right lower extremity deep vein thrombosis. Valvular competence appears intact within the p roximal deep venous system on the right . The right great saphenous vein appears patent and compressible segmentally. Ordering Physician: Anatoliy Mariano Referring Physician: Anatoliy Mariano Performed By: Nilson Taylor RVT
== END | disposition home or self-care (01) ==
LOC: CVS 14:45
PROVIDERS: PCP Family Medicine; Referring Provider Family Medicine; Visit Provider Family Medicine
DX: M79.604 Pain in right leg (principal)
CPT/HCPCS: 93971

== ENCOUNTER → 2024-11-14 | Outpatient (CLI) | payer MEDICARE, SELFPAY | END | disposition home or self-care (01) | LOC: CVS 07:43 | PROVIDERS: PCP Family Medicine; Referring Provider Ophthalmology; Visit Provider Ophthalmology | DX: H35.82 Retinal ischemia (principal) | CPT/HCPCS: 93880 ==

== ENCOUNTER → 2024-11-17 | Outpatient (CLI) | payer MEDICARE, SELFPAY ==
--- NOTE | 2024-11-17 09:24 | RAD_ITS ---
PROCEDURE: LUMBAR SPINE 2 OR 3 VIEWS 11/17/2024 REASON FOR EXAM: L:OW BACK AND LEG PAIN TECHNIQUE: LUMBAR SPINE 2 OR 3 VIEWS COMPARISON: Previous MRI FINDINGS: Bones are diffusely demineralized. There is a dextroscoliosis in the lumbar spine apex at L3-4. There is anatomic alignment of the lumbar spine in the lateral view. No acute or chronic fracture, pars defect or spondylolisthesis. Sclerotic endplate changes noted throughout the lumbar spine. Disc space narrowing throughout the lumbar spine with anterior and posterior spurs. Dense calcifications in the abdominal aorta without aneurysm. Retained stool noted in the colon, no demonstrated fracture in the visualized pelvis RAD/Lumbar Spine 2 or 3 Views IMPRESSION: Multilevel degenerative changes, with a dextroscoliosis no acute fracture or funez spicious osseous lesion Reading Location: [id number]
== END | disposition home or self-care (01) ==
LOC: MTRAD 09:23
PROVIDERS: PCP Family Medicine; Referring Provider Family Medicine; Visit Provider Family Medicine
DX: G57.93 Unspecified mononeuropathy of bilateral lower limbs (principal)
CPT/HCPCS: 72100

== ENCOUNTER → 2024-11-28 | Outpatient (CLI) | payer MEDICARE, SELFPAY ==
--- NOTE | 2024-11-28 07:52 | ART_ITS ---
Reason For Study Reason For Study: Claudication Procedure A bilateral lower extremity continuous wave Doppler with analog waveform analysis and ankle brachial indexes. Left Segmental Pressures Left brachial= 129mmHg. Left posterior tibial artery = 149mmHg. Left dorsalis pedis artery = 148mmHg. Right Segmental Pressures Right brachial= 118mmHg. Right posterior tibial artery = 145mmHg. Right dorsalis pedis artery = 147mmHg. Indices The right ankle brachial index by the posterior tibial artery is 1.12. The right ankle brachial index by the dorsalis pedis is 1.14. The left ankle brachial index by the posterior tibial artery is 1.16. The left ankle brachial index by the dorsalis pedis is 1.15. VL/Ankle Brachial Index Interpretation Summary Triphasic Doppler waveforms are noted at ankle level bilaterally. Pulse-volume recordings appear satisfactory at ankle and digital levels bilaterally. Resting ankle-brachial indices are normal bilat erally. There is no evidence of significant arterial occlusive disease in the lower ext remities bilaterally. Ordering Physician: Sky Parker Referring Physician: SKY PARKER MD Performed By: Lo Nash RVT, RDCS and Student
== END | disposition home or self-care (01) ==
LOC: CVS 07:52
PROVIDERS: PCP Family Medicine; Referring Provider Family Medicine; Visit Provider Family Medicine
DX: I73.9 Peripheral vascular disease, unspecified (principal)
CPT/HCPCS: 93922

== ENCOUNTER → 2025-01-10 | Outpatient (CLI) | payer MEDICARE, SELFPAY ==
--- NOTE | 2025-01-10 12:37 | CT_ITS ---
PROCEDURE: CHEST WITHOUT CONTRAST 01/10/2025 REASON FOR EXAM: LUNGRADS 4 ON SCREENING;NODULES RML TECHNIQUE: Chest CT without contrast. Coronal and Sagittal reconstruction series were provided. One or more dose reduction techniques were used (e.g., Automated exposure control, adjustment of the mA and/or kV according to patient size, use of iterative reconstruction technique RADIATION DOSE SUMMARY: CTDlvol: 8.14 mGy DLP: 319.36 mGycm COMPARISON: Prior study dated October 04, 2024. FINDINGS: Hardware: None Lymph nodes: Small benign-appearing mediastinal lymph nodes. Heart and Vasculature: The heart is nonenlarged. Atherosclerotic calcifications of the thoracic aorta. Thoracic aorta and pulmonary arteries have normal contours; noncontrast technique limits evaluation. Coronary Artery Calcifications: Present Lungs and Airways: Mild emphysematous changes are present. Stable calcified right hilar lymph nodes and scattered bilateral granulomas more prominent in the right lung base. The previously described subcentimeter nodular densities in the right middle lobe are not well seen at this time. Pleura: Unremarkable Upper Abdomen: Unremarkable Bones: Degenerative changes of the thoracic spine. CT/Chest without Contrast IMPRESSION: Coronary artery calcification (CAC) is is present Scattered calcified granulomas. No suspicious abnormality is seen. Reading Location: [facility]
== END | disposition home or self-care (01) ==
PROVIDERS: PCP Family Medicine; Referring Provider Nurse Practitioner Family; Visit Provider Nurse Practitioner Family
DX: R91.8 Other nonspecific abnormal finding of lung field (principal); F17.209 Nicotine dependence, unspecified, with unspecified nicotine-induced disorders
CPT/HCPCS: 71250

== ENCOUNTER → 2025-03-13 | Outpatient (CLI) | payer MEDICARE, SELFPAY ==
--- NOTE | 2025-03-13 09:58 | STE_ITS ---
Reason For Study Reason For Study: Chest Pain Stress Results Protocol: Johnson Protocol Maximum Predicted HR: 143 bpm Target HR: 122 bpm % Maximum Predicted HR: 95 % DurationHeart Rate Stage (mm:ss) (bpm) BP Comment Baseline 77 112/74No Chest Pain Johnson Protocol Stage I 3:00 114 132/74No Chest Pain Johnson Protocol Stage II 3:00 129 154/72No Chest Pain; Mild Dyspnea Johnson Protocol Stage III 0:31 136 / No Chest Pain; Mild Dyspnea Recovery 91 124/74No Chest Pain Stress Duration: 6:31 mm:ss Maximum Stress HR: 136 bpm METS: 8 Baseline Echocardiogram Findings Stress Echo Wall motion Data Resting WM Intermediate WM Stress WM ECHO/Stress Test Echo w/o Contrast Interpretation Summary Exercise stress echocardiogram. Resting EKG shows normal sinus rhythm with ventricular rate of 83 bpm. Normal i ntervals noted, no evidence of prior infarction or ongoing ischemia. Resting blood pressure is 112/74. The patient e xercised according to regular Johnson protocol for total duration of 6 minutes and 31 seconds. Patient attained a max imum heart rate of 137 bpm. This value represents 95% of maximal, age-predicted heart rate. The maximum workload was 8 .5 METS. The test was stopped due to target heart rate achieved. There were no ST segment/T wave changes suggesting myocardial ischemia during stress. There were rare PVCs, but no significant arrhythmias. Rate-pressure product was [address] and peak blood pressure was 154/72. This is a normal response to exercise. Stress echocardiogram The resting echocardiogram showed ejection fraction of 55% with no wall motion abnormalities. No wall motion abnormalities were noted on the stress echocardiogram, demonstrating thickening of all strick[place] with improved contractility with estimated ejection fraction of 70%. Conclusion: Exercise stress test with no EKG criteria for ischemia at an appropriate worklo ad Stress echocardiogram with no criteria for ischemia Ordering Physician: Mack Bond Referring Physician: Mack Bond Performed By: Nilo Gordon RCS
== END | disposition home or self-care (01) ==
PROVIDERS: PCP Family Medicine; Referring Provider Internal Medicine Cardiovascular Disease; Visit Provider Internal Medicine Cardiovascular Disease
DX: R07.89 Other chest pain (principal)
CPT/HCPCS: 93017; 93350